=== PATIENT | female | born 1955 | race African-American/Black ===

== ENCOUNTER 2018-03-16 17:30 | Inpatient (IN) | payer MEDICARE, OTHER ==
[~2018-03-16] VITALS: Ht 154.9 cm; Wt 113.4 kg
[2018-03-16] MEDS ORDERED: PANTOPRAZOLE 40 MG 10ML VIAL IV STA (18:25)
[2018-03-16] MEDS ORDERED: ONDANSETRON HCL INJ 2 MG/ML VIAL IV STA (18:25)
[2018-03-16] MEDS ORDERED: SODIUM CHLORIDE 0.9% 250ML 250 ML IV ONE (18:30)
[2018-03-16] MEDS ORDERED: VANCOMYCIN 1GM/NS 250 ML 250 ML IV STA (18:37)
[2018-03-16] MEDS ORDERED: PIPERACILLIN/TAZO 2.25 GM 50 ML IV STA (18:37)
[2018-03-16] MEDS ORDERED: DIATRIZOATE MEGL/DIATRIZOA SOD 30 ML BTL PO ONE (18:40)
[2018-03-16 18:41] LABS: BASOPHILS % 0.2 % (0.0-1.0); EOSINOPHILS # (AUTO) 0.2 (0.0-0.4); EOSINOPHILS % 2.3 % (0.0-6.0); HEMATOCRIT 33.2 % (34.2-44.1); HEMOGLOBIN 9.9 g/dL (12.0-16.0); LYMPHOCYTES # (AUTO) 1.7 (1.0-3.2); LYMPHOCYTES % 17.2 % (18.0-39.1); MEAN CORPUSCULAR HEMOGLOBIN 29.5 pg (28-32); MEAN CORPUSCULAR HGB CONC 29.8 g/dL (31-35); MEAN CORPUSCULAR VOLUME 98.8 fL (81-99); MONOCYTES # (AUTO) 0.8 (0.2-0.8); MONOCYTES % 7.6 % (4.4-11.3); NEUTROPHILS # (AUTO) 7.2 (2.1-6.9); NEUTROPHILS % 72.4 % (38.7-80.0); PLATELET COUNT 147 x10e3/uL (140-360); RED BLOOD COUNT 3.36 x10e6/uL (3.6-5.1); RED CELL DISTRIBUTION WIDTH 15.8 % (11.7-14.4)
[2018-03-16 19:00] LABS: INR 1.12; PROTHROMBIN TIME 15.4 seconds (11.9-14.5)
[2018-03-16 19:01] LABS: ALBUMIN 2.9 g/dL (3.5-5.0); ALBUMIN/GLOBULIN RATIO 0.7 (0.8-2.0); ANION GAP 19.2 mmol/L (8-16); CALCIUM 10.1 mg/dL (8.4-10.2); CREATININE, SERUM 6.97 mg/dL (0.57-1.11); POTASSIUM 4.2 mmol/L (3.5-5.1)
[2018-03-16 19:01] LABS: PARTIAL THROMBOPLASTIN TIME 29.3 seconds (23.8-35.5)
[2018-03-16 19:07] LABS: CREATINE KINASE MB 1.4 ng/mL (0-5.0)
--- NOTE | 2018-03-16 20:51 | Diagnostic Imaging Report ---
EXAM: CHEST SINGLE (PORTABLE), AP 1 view INDICATION: Stage III ulcer right foot COMPARISON: None FINDINGS: LINES/TUBES: Right internal jugular vein tunneled hemodialysis catheter tip terminates at the expected location of the right atrium. Left internal jugular vein central line terminates in expected location of the atriocaval junction. LUNGS: No consolidations or edema. PLEURA: No effusions or pneumothorax. Elevation of the right hemidiaphragm. HEART AND MEDIASTINUM: Normal size and contour. BONES AND SOFT TISSUES: No acute findings. IMPRESSION: No acute thoracic abnormality. Signed by: Dr. Diana Qureshi M.D. on 03/16/2018 8:48 PM
--- NOTE | 2018-03-16 21:18 | Diagnostic Imaging Report ---
EXAM: CT ABDOMEN AND PELVIS without IV CONTRAST INDICATION: Abdominal pain, nausea and vomiting, stage III ulcer on right foot COMPARISON: None TECHNIQUE: The abdomen and pelvis were scanned using a multidetector helical scanner. Coronal and sagittal reformations were obtained. Dose modulation, iterative reconstruction, and/or weight based adjustment of the mA/kV was utilized to reduce the radiation dose to as low as reasonably achievable. Routine protocol performed. IV Contrast: None Oral Contrast: Gastrografin CTDIvol has been reviewed. It is below the limits set by the Radiation Protocol Committee (RPC). FINDINGS: LOWER THORAX: No consolidations. Elevated right hemidiaphragm. LIVER: No masses BILIARY: Cholecystectomy. No ductal dilation. SPLEEN: No masses PANCREAS: No masses ADRENALS: No nodules KIDNEYS: Small kidneys bilaterally consistent with chronic medical renal disease. GI TRACT: No wall thickening or obstruction. Normal appendix. VESSELS: Right femoral hemodialysis catheter terminates at the atriocaval junction. No abdominal aortic aneurysm. PERITONEUM/RETROPERITONEUM: No free air or fluid LYMPH NODES: No lymphadenopathy REPRODUCTIVE ORGANS: Small calcified uterine fibroid. No adnexal masses. BLADDER: Decompressed SOFT TISSUES: No acute findings BONES: No suspicious bone lesions. IMPRESSION: No acute findings to explain patient's abdominal pain Signed by: Dr. Diana Qureshi M.D. on 03/16/2018 9:14 PM
[2018-03-16] MEDS ORDERED: basaglar SC (21:22)
[2018-03-16] MEDS ORDERED: CLONIDINE HCL0.2 MG PO (21:22)
[2018-03-16] MEDS ORDERED: DOCUSATE SODIU100 MG PO (21:22)
[2018-03-16] MEDS ORDERED: CONSTULOSE10 GM/15 M PO (21:22)
[2018-03-16] MEDS ORDERED: SENSIPAR30 MG PO (21:23)
[2018-03-16] MEDS ORDERED: LASIX40 MG PO (21:23)
[2018-03-16] MEDS ORDERED: GABAPENTIN100 MG PO (21:23)
[2018-03-16] MEDS ORDERED: PLAVIX75 MG PO (21:23)
[2018-03-16] MEDS ORDERED: RENVELA800 MG PO (21:23)
[2018-03-16] MEDS ORDERED: MIRALAX17 GM PO (21:23)
[2018-03-16] MEDS ORDERED: TYLENOL WITH C1 EACH PO (21:23)
[2018-03-16] MEDS ORDERED: METOPROLOL TART25 MG PO (21:23)
[2018-03-16] MEDS ORDERED: LACTINEX CHEWA1 EACH PO (21:23)
[2018-03-16] MEDS ORDERED: TRADJENTA5 MG PO (21:23)
[2018-03-16] MEDS ORDERED: HUMULIN-R100 UNITS/ (21:23)
[2018-03-16] MEDS ORDERED: PANTOPRAZOLE SO40 MG PO (21:23)
[2018-03-16] MEDS ORDERED: NORVASC5 MG PO (21:23)
--- NOTE | 2018-03-16 21:27 | Diagnostic Imaging Report ---
EXAM: FOOT RIGHT COMPLETE, AP, lateral and oblique INDICATION: Stage III ulcer right foot COMPARISON: None FINDINGS: BONES: No acute fractures. No focal erosions. Diffuse bone demineralization. JOINTS: No malalignment. SOFT TISSUES: Severe soft tissue swelling of the foot, predominantly dorsal. Marked vascular calcifications. IMPRESSION: No radiographic evidence of osteomyelitis. Signed by: Dr. Diana Qureshi M.D. on 03/16/2018 9:24 PM
--- OUTSIDE RECORDS SUMMARY | 2018-03-16 21:31 | XMS REPORT | Clinical Summary ---
Author Author [facility] Address Unknown Phone Unavailable Care Team Providers Care Serology Technician Name Role Phone Sofia Atwood MD PCP Allergies Active Allergy Reactions Severity Noted Date Comments Lisinopril 11/09/2016 Tramadol 11/09/2016 Current Medications Prescription Sig. Disp. Refills Start End Date Status Date acetaminophen-codeine Take 1 tablet by mouth Active (TYLENOL WITH CODEINE #3) every 6 (six) hours as 300-30 mg per tablet needed for moderate pain. diclofenac (VOLTAREN) 1 % Apply 4 g topically 4 Active gel (four) times a day. As needed for pain on back and shoulder. simvastatin (ZOCOR) 20 MG Take 20 mg by mouth Active tablet nightly. senna (SENOKOT) 8.6 mg Take 1 tablet by mouth Active tablet daily. zinc oxide 16 % ointment Apply topically 2 (two) Active times a day as needed. Perineal area. polyethylene glycol Take 17 g by mouth daily. Active (MIRALAX) 17 gram packet For constipation. ondansetron (ZOFRAN) 4 MG Take 4 mg by mouth every Active tablet 6 (six) hours. Nausea and vomiting. clonIDINE HCl (CATAPRES) Take 0.2 mg by mouth Active 0.2 MG tablet daily. Hold if SBP<110mmHg and HR<60bpm. (On dialysis days) amLODIPine (NORVASC) 5 mg Take 5 mg by mouth daily. Active tablet Hold if SBP<110mmHg and HR<60bpm. clonIDINE HCl (CATAPRES) Take 0.2 mg by mouth 2 Active 0.2 MG tablet (two) times a day. Hold if SBP<110mmHg and HR<60bpm. (Non-Dialysis days) melatonin 3 mg tablet Take 5 mg by mouth Active nightly. For insomnia. cinacalcet (SENSIPAR) 30 Take 30 mg by mouth Active MG tablet daily. With dinner. sitaGLIPtin (JANUVIA) 25 Take 25 mg by mouth Active MG tablet daily. insulin NPH and regular Inject under the skin 2 Active human (HumuLIN 70/30) 100 (two) times a day before unit/mL (70-30) injection meals. insulin GLARGINE (LANTUS) Inject 20 Units under the Active 100 unit/mL injection skin daily. Every AM for (vial) dialysis. sevelamer (RENVELA) 800 Take 800 mg by mouth 2 Active mg tablet (two) times a day with meals. Three tablets 2 times daily with meals on Sunday,sunday and Sunday. sevelamer (RENVELA) 800 Take 800 mg by mouth 3 Active mg tablet (three) times a day with meals. Three tablets by mouth three times a day on Sunday,,sunday and Sunday. famotidine (PEPCID) 20 MG Take 20 mg by mouth Active tablet nightly. gabapentin (NEURONTIN) Take 100 mg by mouth 2 Active 100 mg capsule (two) times a day. ascorbic acid, vitamin C, Take 500 mg by mouth Active (VITAMIN C) 500 MG tablet daily. docusate sodium (COLACE) Take 100 mg by mouth 2 Active 100 MG capsule (two) times a day. Active Problems Problem Noted Date Cellulitis of right lower leg 11/10/2016 Social History Tobacco Use Types Packs/Day Years Used Date Unknown If Ever Smoked Sex Assigned at Date Recorded Not on file Last Filed Vital Signs Not on file Plan of Treatment Health Maintenance Due Date Last Done Comments CERVICAL CANCER SCREENING 1977 BREAST CANCER SCREENING 2006 COLON CANCER SCREENING 2006 SHINGRIX VACCINE (#1) 2006 ZOSTER VACCINE 2016 INFLUENZA VACCINE 12/12/2017 Results Not on fileafter 03/15/2017 Insurance Payer Benefit Subscriber ID Type Phone Address Plan / Group MEDICARE MEDICARE xxxxxxxxxx Medicare [place] PART [place] B MEDICAID MEDICA[place] x[place] [address]
--- OUTSIDE RECORDS SUMMARY | 2018-03-16 21:34 | XMS REPORT | Continuity of Care Document ---
Author Author [facility] Organization [facility] Address Unknown Phone Unavailable Care Team Providers Care Oil And Gas Field Technician Name Role Phone MD Gonzalez Eleanor PP Unavailable Insurance Providers Payer name Policy type / Coverage type Policy ID Covered republican ID Policy [place] [employer] MED[place]: [employer] [place] ACS - TM[facility] - [place]ADITION[place] ACS - TM[place] - [place] ACS - TMHP - [place]: ACS - TMHP - [place]AD[place] ACS - TMHP - TRADITIONAL [place]: ACS - TMHP - TRADITION[place] ACS - TMHP - TRADITION[place]: ACS - TMHP - TRADITION[place] MED[place]: ACS - TMHP - TRADITIONAL MED[place]: ACS - TMHP - TRADITIONAL MED[place]: ACS - TMHP - TRADITION[place]: ACS - TMHP - TRADITION[place]: ACS - TMHP - TRADITION[place]: ACS - TMHP - TRADITIONAL MED[place]ID[place]: ACS - TMHP - TRADITIONAL MEDICAID-[place]: ACS - TMHP - TRADITIONAL MEDICAID-[place]: ACS - TMHP - TRADITIONAL MEDICAID-[place]: ACS - TMHP - TRADITIONAL MEDICAID-[place]: ACS - TMHP - TRADITIONAL MEDICAID-[place]: ACS - TMHP - TRADITIONAL MEDICAID-[place]: ACS - TMHP - TRADITIONAL MEDICAID-[place]: ACS - TMHP - TRADITIONAL MEDICAID-[place]: ACS - TMHP - TRADITIONAL MEDICAID-[place]: ACS - TMHP - TRADITIONAL MEDICAID-[place]: ACS - TMHP - TRADITIONAL MEDICAID-[place]: ACS - TMHP - TRADITIONAL MEDICAID-[place]: ACS - TMHP - TRADITIONAL MEDICAID-[place]: ACS - TMHP - TRADITIONAL MEDICAID-[place]: ACS - TMHP - TRADITIONAL MEDICAID-[place]: ACS - TMHP - TRADITIONAL MEDICAID-[place]: ACS - TMHP - TRADITIONAL MEDICAID-[place]: ACS - TMHP - TRADITIONAL MEDICAID-[place]: ACS - TMHP - TRADITIONAL MEDICAID-[place]: ACS - TMHP - TRADITIONAL MEDICAID-[place]: ACS - TMHP - TRADITIONAL MEDICAID-[place]: ACS - TMHP - TRADITIONAL MEDICAID-[place]: ACS - TMHP - TRADITIONAL MEDICAID-[place]: ACS - TMHP - TRADITIONAL MEDICAID-[place]: ACS - TMHP - TRADITIONAL MEDICAID-[place]: ACS - TMHP - TRADITIONAL MEDICAID-[place]: ACS - TMHP - TRADITIONAL MEDICAID-[place]: ACS - TMHP - TRADITIONAL MEDICAID-[place]: ACS - TMHP - TRADITIONAL MEDICAID-[place]: ACS - TMHP - TRADITIONAL MEDICAID-[place]: ACS - TMHP - TRADITIONAL MEDICAID-[place]: ACS - TMHP - TRADITIONAL MEDICAID-[place]: ACS - TMHP - TRADITIONAL MEDICAID-[place]: ACS - TMHP - TRADITIONAL MEDICAID-[place]: ACS - TMHP - TRADITIONAL MEDICAID-[place]: ACS - TMHP - TRADITIONAL MEDICAID-[place]: ACS - TMHP - TRADITIONAL MEDICAID-[place]: ACS - TMHP - TRADITIONAL MEDICAID-[place]: ACS - TMHP - TRADITIONAL MEDICAID-[place]: ACS - TMHP - TRADITIONAL MEDICAID-[place]: ACS - TMHP - TRADITIONAL MED[place]ID[place]: ACS - TMHP - TRADITIONAL MED[place]ID[place]: ACS - TMHP - TRADITIONAL MED[place]ID[place]: ACS - TMHP - TRADITIONAL MED[place]ID[place]: ACS - TMHP - TRADITIONAL MED[place]ID[place]: ACS - TMHP - TRADITIONAL MED[place]ID[place]: ACS - TMHP - TRADITIONAL MED[place]ID[place]: ACS - TMHP - TRADITIONAL MED[place]ID[place]: ACS - TMHP - TRADITIONAL MED[place]: ACS - TMHP - TRADITION[place] MED[place]: ACS - TMHP - TRADITION[place] MED[place]: ACS - TMHP - TRADITION[place]: ACS - TMHP - [place]AD[place]: ACS - TMHP - TRADITION[place]: ACS - TMHP - TRADITIONAL Encounters Encounter Performer Location Date Lab Report Ary Gonzalez MD [facility] Oct 23, 2013 Allergies, Adverse Reactions, Alerts Type Substance Reaction Status Drug allergy LISINOPRIL Active Drug allergy LISINOPROL Inactive Problems Problem Effective Dates Problem Status HYPERTENSION - BENIGN ESSENTIAL Active FH BREAST CANCER Active DIABETES MELLITUS, TYPE II, UNCONTROLLED Jul 18, 2013 Active PERIPHERAL EDEMA Jul 18, 2013 Active ESRD Jul 18, 2013 Active CONSTIPATION Jul 18, 2013 Active GAIT IMBALANCE Jul 18, 2013 Active CHRONIC DIASTOLIC HF Active ELECTROCARDIOGRAM - ABNORMAL Active OBESITY - MORBID Active PREOPERATIVE EXAMINATION Aug 07, 2013 Active PRE-OPERATIVE RESPIRATORY EXAMINATION Aug 07, 2013 Active RETINOPATHY Aug 07, 2013 Active BACK PAIN Aug 14, 2013 Active HYPERLIPIDEMIA Oct 23, 2013 Active VENOUS INSUFFICIENCY, CHRONIC Oct 23, 2013 Active Procedures Date Description Comments Jun 30, 2013 mammogram Completed at [facility] Jul 18, 2013 smoking status never smoker Jul 18, 2013 diabetic foot check yes Jul 18, 2013 smoking status never smoker Medications Medication Instructions Start Date Status NORVASC 10 MG TABS Take one tab by mouth daily for BP Jul 18, 2013 Active CATAPRES 0.2 MG TABS Take 1 pill by mouth every 8 hours Jul 18, 2013 Active RENVELA 800 MG TABS take 2 tabs w/ every meal including snacks Jul 18, 2013 Active GABAPENTIN 100 MG CAPS Take 1 tab by mouth TID Jul 18, 2013 Active NITROSTAT 0.4 MG SUBL PRN Jul 18, 2013 Active FERROUS SULFATE 325 (65 FE) MG TBEC Take 1 pill by mouth once a day Jul 18, 2013 Active EPOGEN SOLN Jul 18, 2013 Active RENAL MULTIVITAMIN/ZINC TABS Take 1 pill by mouth once a day Jul 18, 2013 Active D 2000 TABS Take 1 pill by mouth once a day Jul 18, 2013 Active DIURETICS Jul 18, 2013 Active ZOSTAVAX 32513 UNT/0.65ML SOLR Administer 0.65 mL intramuscular x1 Jul 18, 2013 Inactive ASPIRIN EC LOW DOSE 81 MG TBEC 1 tablet daily Jul 18, 2013 Active ASPIRIN 81 MG TABS Take 1 tab by mouth once daily Jul 18, 2013 Inactive CRESTOR 5 MG TABS Take 1 pill by mouth at bedtime Jul 25, 2013 Active GENERLAC 10 GM/15ML SOLN take 30 ml po qd prn constipation Aug 21, 2013 Active LANTUS SOLOSTAR 100 UNIT/ML SOLN take 15 u SC bid September 15, 2013 Inactive LANTUS SOLOSTAR NEEDLES dx: 250.02 September 15, 2013 Inactive LANTUS 100 UNIT/ML SOLN take 15 u SC bid September 15, 2013 Active Vital Signs Date Description Test Result Jul 18, 2013 weight E&M WEIGHT 257 lb Jul 18, 2013 temperature E&M TEMPERATURE 98.3 deg f Jul 18, 2013 respiratory rate E&M RESP RATE 17 /min Jul 18, 2013 pulse rate E&M PULSE RATE 94 /min Jul 18, 2013 blood pressure, systolic BP SYSTOLIC 132 mm Hg Jul 18, 2013 blood pressure, diastolic BP DIASTOLIC 85 mm Hg Jul 18, 2013 height E&M HEIGHT 63 in Jul 18, 2013 weight E&M WEIGHT 262 lb Jul 18, 2013 height E&M HEIGHT 63 in Jul 18, 2013 blood pressure, systolic, sitting, right arm BP SYS SIT R 126 null Jul 18, 2013 blood pressure, diastolic, sitting, right arm BP MARIAJOSE SIT R 83 mmHg Jul 18, 2013 pulse rate, sitting, right PULSE SIT R 95 /min Jul 18, 2013 temperature E&M TEMPERATURE 97.7 deg f Jul 18, 2013 blood pressure, systolic BP SYSTOLIC 126 mm Hg Jul 18, 2013 pulse rate E&M PULSE RATE 95 /min Jul 18, 2013 blood pressure, diastolic BP DIASTOLIC 83 mm Hg Aug 07, 2013 weight E&M WEIGHT 256 lb Aug 07, 2013 blood pressure, systolic BP SYSTOLIC 151 mm Hg Aug 07, 2013 blood pressure, diastolic BP DIASTOLIC 84 mm Hg Aug 07, 2013 temperature E&M TEMPERATURE 97.5 deg f Aug 07, 2013 pulse rate E&M PULSE RATE 83 /min Aug 07, 2013 respiratory rate E&M RESP RATE 18 /min Aug 07, 2013 blood pressure, systolic, second observation BP SYS #2 134 mm Hg Aug 07, 2013 blood pressure, diastolic, second observation BP MARIAJOSE #2 84 mm Hg Aug 14, 2013 weight E&M WEIGHT 260 lb Aug 14, 2013 blood pressure, systolic BP SYSTOLIC 128 mm Hg Aug 14, 2013 blood pressure, diastolic BP DIASTOLIC 85 mm Hg Aug 14, 2013 temperature E&M TEMPERATURE 98.2 deg f Aug 14, 2013 pulse rate E&M PULSE RATE 87 /min Aug 14, 2013 respiratory rate E&M RESP RATE 17 /min Oct 23, 2013 weight E&M WEIGHT 259 lb Oct 23, 2013 blood pressure, systolic BP SYSTOLIC 105 mm Hg Oct 23, 2013 blood pressure, diastolic BP DIASTOLIC 69 mm Hg Oct 23, 2013 temperature E&M TEMPERATURE 98.2 deg f Oct 23, 2013 pulse rate E&M PULSE RATE 79 /min Oct 23, 2013 respiratory rate E&M RESP RATE 18 /min Results Date Description Test Name Value Reference Interpretation Status Jul 18, 2013 hemoglobin, blood HGB 12.5 g/dL 12.0-16.0 Jul 18, 2013 hematocrit, blood HCT 37.8 % 36.0-48.0 Jul 18, 2013 platelet count PLATELETS 211 K/CMM /mm3 133-450 Jul 18, 2013 hemoglobin A1C, blood, as % of total hemoglobin HGBA1C 7.9 % <=5.6 High Jul 18, 2013 cholesterol, serum CHOLESTEROL 237 mg/dl <=199 High Jul 18, 2013 triglyceride, serum, fasting TRIGLYCERIDE 218 mg/dl <=149 High Jul 18, 2013 HDL cholesterol, serum HDL 51 mg/dl >=61 Low Jul 18, 2013 LDL cholesterol, serum LDL 142 mg/dl <=99 High Jul 18, 2013 sodium, serum SODIUM 140 MEQ/L mmol/L 135-145 Jul 18, 2013 potassium, serum POTASSIUM 4.6 MEQ/L mmol/L 3.5-5.1 Jul 18, 2013 creatinine, serum CREATININE 5.0 mg/dL 0.5-1.4 Jul 18, 2013 urea nitrogen, blood BUN 32 mg/dL 7-Jul 18, 2013 urea nitrogen/creatinine ratio, serum BUN/CREAT 6 null 6-25 Jul 18, 2013 albumin, serum ALBUMIN <0.1 g/dL g/dL 3.5-5.0 Jul 18, 2013 calcium, serum CALCIUM 10.0 mg/dL 8.5-10.5 Jul 18, 2013 alanine aminotransferase (SGPT), serum SGPT (ALT) 48 U/L 0-65 Jul 18, 2013 aspartate aminotransferase (SGOT), serum SGOT (AST) 31 U/L 0-37 Jul 18, 2013 alkaline phosphatase, serum ALK PHOS 216 U/L 39-136 High Jul 18, 2013 thyroid stimulating hormone, serum TSH 0.867 uIU/mL 0.360-3.740 Oct 23, 2013 hemoglobin A1C, blood, as % of total hemoglobin HGBA1C 7.7 % <=5.6 High Oct 23, 2013 cholesterol, serum CHOLESTEROL 156 mg/dl <=199 Oct 23, 2013 triglyceride, serum, fasting TRIGLYCERIDE 180 mg/dl <=149 High Oct 23, 2013 HDL cholesterol, serum HDL 42 mg/dl >=61 Low Oct 23, 2013 LDL cholesterol, serum LDL 78 mg/dl <=99 Oct 23, 2013 sodium, serum SODIUM 135 MEQ/L mmol/L 135-145 Oct 23, 2013 potassium, serum POTASSIUM 4.2 MEQ/L mmol/L 3.5-5.1 Oct 23, 2013 creatinine, serum CREATININE 6.7 mg/dL 0.5-1.4 High Oct 23, 2013 urea nitrogen, blood BUN 34 mg/dL 7- High Oct 23, 2013 urea nitrogen/creatinine ratio, serum BUN/CREAT 5 null 6-25 Low Oct 23, 2013 albumin, serum ALBUMIN 3.8 g/dL 3.5-5.0 Oct 23, 2013 calcium, serum CALCIUM 9.2 mg/dL 8.5-10.5 Oct 23, 2013 alanine aminotransferase (SGPT), serum SGPT (ALT) 26 U/L 0-65 Oct 23, 2013 aspartate aminotransferase (SGOT), serum SGOT (AST) 17 U/L 0-37 Oct 23, 2013 alkaline phosphatase, serum ALK PHOS 150 U/L 39-136 High Aug 07, 2013 prothrombin time (patient) PT PATIENT 14.0 s 12.0-14.7 Aug 07, 2013 international normalized ratio (INR) INR 1.09 null 0.85-1.17
--- OUTSIDE RECORDS SUMMARY | 2018-03-16 21:34 | XMS REPORT | Continuity of Care Document ---
Author Author [facility] Organization [facility] Address Unknown Phone Unavailable Care Team Providers Care Mountain Services Manager Name Role Phone MD Gonzalez Eleanor PP Unavailable Insurance Providers Payer name Policy type / Coverage type Policy ID Covered libertarian ID Policy [employer] [employer]ITAS SOLUTIONS [...] - TRADITIONAL Encounters Encounter Performer Location Date Office Visit Ary Gonzalez MD [facility] Aug 14, 2013 Allergies, Adverse Reactions, Alerts Type Substance [...] Active BACK PAIN Aug 14, 2013 Active Procedures Date Description Comments Jun 30, 2013 mammogram Completed at [facility] Jul 18, 2013 smoking status never smoker [...] meal including snacks Jul 18, 2013 Active LANTUS SOLOSTAR 100 UNIT/ML SOLN 15u BID Jul 18, 2013 Active GABAPENTIN 100 MG CAPS Take 1 tab by mouth TID Jul 18, 2013 Active ENULOSE 10 GM/15ML SOLN PRN Jul 18, 2013 Active NITROSTAT 0.4 MG [...] Active DIURETICS Jul 18, 2013 Active ZOSTAVAX 27811 UNT/0.65ML SOLR Administer 0.65 mL intramuscular x1 Jul 18, 2013 Inactive ASPIRIN EC LOW DOSE 81 MG TBEC 1 tablet daily Jul 18, 2013 Active ASPIRIN 81 MG TABS Take 1 tab by mouth once daily Jul 18, 2013 Inactive CRESTOR 5 MG TABS Take 1 pill by mouth at bedtime Jul 25, 2013 Active Vital Signs Date Description Test Result Jul 18, 2013 weight E&M - 3141-9 WEIGHT 257 lb Jul 18, 2013 temperature E&M TEMPERATURE 98.3 deg f Jul 18, 2013 respiratory rate E&M - 9279-1 RESP RATE 17 /min Jul 18, 2013 pulse rate E&M - 8867-4 PULSE RATE 94 /min Jul 18, 2013 blood pressure, systolic - 8480-6 BP SYSTOLIC 132 mm Hg Jul 18, 2013 blood pressure, diastolic - 8462-4 BP DIASTOLIC 85 mm Hg Jul 18, 2013 height E&M - 8302-2 HEIGHT 63 in Jul 18, 2013 weight E&M - 3141-9 WEIGHT 262 lb Jul 18, 2013 height E&M - 8302-2 HEIGHT 63 in Jul 18, 2013 blood pressure, systolic, sitting, right arm BP SYS SIT R 126 null Jul 18, 2013 blood pressure, diastolic, sitting, right arm BP MARIAJOSE SIT R 83 mmHg Jul 18, 2013 pulse rate, sitting, right PULSE SIT R 95 /min Jul 18, 2013 temperature E&M TEMPERATURE 97.7 deg f Jul 18, 2013 blood pressure, systolic - 8480-6 BP SYSTOLIC 126 mm Hg Jul 18, 2013 pulse rate E&M - 8867-4 PULSE RATE 95 /min Jul 18, 2013 blood pressure, diastolic - 8462-4 BP DIASTOLIC 83 mm Hg Aug 07, 2013 weight E&M - 3141-9 WEIGHT 256 lb Aug 07, 2013 blood pressure, systolic - 8480-6 BP SYSTOLIC 151 mm Hg Aug 07, 2013 blood pressure, diastolic - 8462-4 BP DIASTOLIC 84 mm Hg Aug 07, 2013 temperature E&M TEMPERATURE 97.5 deg f Aug 07, 2013 pulse rate E&M - 8867-4 PULSE RATE 83 /min Aug 07, 2013 respiratory rate E&M - 9279-1 RESP RATE 18 /min Aug 07, 2013 blood pressure, systolic, second observation BP SYS #2 134 mm Hg Aug 07, 2013 blood pressure, diastolic, second observation BP MARIAJOSE #2 84 mm Hg Aug 14, 2013 weight E&M - 3141-9 WEIGHT 260 lb Aug 14, 2013 blood pressure, systolic - 8480-6 BP SYSTOLIC 128 mm Hg Aug 14, 2013 blood pressure, diastolic - 8462-4 BP DIASTOLIC 85 mm Hg Aug 14, 2013 temperature E&M TEMPERATURE 98.2 deg f Aug 14, 2013 pulse rate E&M - 8867-4 PULSE RATE 87 /min Aug 14, 2013 respiratory rate E&M - 9279-1 RESP RATE 17 /min Results Date Description Test Name Value [...] 2013 creatinine, serum CREATININE 5.0 mg/dL 0.5-1.4 High Jul 18, 2013 urea nitrogen, blood BUN 32 mg/dL 7-22 High Jul 18, 2013 urea nitrogen/creatinine ratio, serum BUN/CREAT [...] stimulating hormone, serum TSH 0.867 uIU/mL 0.360-3.740 Aug 07, 2013 prothrombin time (patient) PT PATIENT 14.0 s 12.0-14.7 Aug 07, 2013 international normalized ratio (INR) INR 1.09 null 0.85-1.17
--- OUTSIDE RECORDS SUMMARY | 2018-03-16 21:34 | XMS REPORT | Continuity of Care Document ---
Author Author [facility] Organization [facility] Address Unknown Phone Unavailable Care Team Providers Care Licensed Nuclear Operator Name Role Phone MD Gonzalez Eleanor PP [...] Location Date Office Visit Ary Gonzalez MD [facility] Aug 07, 2013 Allergies, Adverse Reactions, Alerts Type Substance [...] 2013 Active RETINOPATHY Aug 07, 2013 Active Procedures Date Description Comments Jun 30, 2013 mammogram Completed at [facility] Jul 18, 2013 smoking status never smoker [...] Active DIURETICS Jul 18, 2013 Active ZOSTAVAX 20347 UNT/0.65ML SOLR Administer 0.65 mL intramuscular x1 [...] observation BP MARIAJOSE #2 84 mm Hg Results Date Description Test Name Value Reference [...]
--- OUTSIDE RECORDS SUMMARY | 2018-03-16 21:34 | XMS REPORT | Continuity of Care Document ---
Author Author [facility] Organization [facility] Address Unknown Phone Unavailable Care Team Providers Care Gourmet Coffee Attendant Name Role Phone MD Gonzalez Eleanor PP [...] Location Date Lab Report Ary Gonzalez MD [facility] Jul 18, 2013 Problems Problem Effective Dates Problem Status HYPERTENSION - BENIGN ESSENTIAL Active FH BREAST CANCER Active DIABETES MELLITUS, TYPE II, UNCONTROLLED Jul 18, 2013 Active PERIPHERAL EDEMA Jul 18, 2013 Active ESRD Jul 18, 2013 Active CONSTIPATION Jul 18, 2013 Active GAIT IMBALANCE Jul 18, 2013 Active CHRONIC DIASTOLIC HF Active ELECTROCARDIOGRAM - ABNORMAL Active OBESITY - MORBID Active Procedures Date Description Comments Jun 30, 2013 mammogram Completed at [facility] Jul 18, 2013 smoking status never smoker [...] Active DIURETICS Jul 18, 2013 Active ZOSTAVAX 82561 UNT/0.65ML SOLR Administer 0.65 mL intramuscular x1 Jul 18, 2013 Inactive ASPIRIN EC LOW DOSE 81 MG TBEC 1 tablet daily Jul 18, 2013 Active CRESTOR 5 MG TABS Take 1 pill [...] - 8462-4 BP DIASTOLIC 83 mm Hg Results Date Description Test Name [...]
--- OUTSIDE RECORDS SUMMARY | 2018-03-16 21:34 | XMS REPORT | Continuity of Care Document ---
Author Author [facility] Organization [facility] Address Unknown Phone Unavailable Care Team Providers Care Bsa/Aml Compliance Officer Name Role Phone MD Thurman J R PP Unavailable Insurance Providers Payer name Policy type / Coverage type Policy ID Covered green party ID Policy [employer] [employer]AS SOLUTIONS [...] Encounters Encounter Performer Location Date Office Visit Lia Thurman MD [facility] Jul 18, 2013 Allergies, Adverse Reactions, Alerts Type Substance Reaction Status Drug allergy LISINOPROL Active Problems Problem Effective Dates Problem Status HYPERTENSION [...] Comments Jun 30, 2013 mammogram Completed at [place] Jul 18, 2013 smoking status never smoker [...] MG SUBL PRN Jul 18, 2013 Active ASPIRIN 81 MG TABS Take 1 tab by mouth once daily Jul 18, 2013 Active FERROUS SULFATE 325 [...] Active DIURETICS Jul 18, 2013 Active ZOSTAVAX 01123 UNT/0.65ML SOLR Administer 0.65 mL intramuscular x1 Jul 18, 2013 Active ASPIRIN EC LOW DOSE 81 MG TBEC 1 tablet daily Jul 18, 2013 Active Vital Signs Date Description Test [...]
--- OUTSIDE RECORDS SUMMARY | 2018-03-16 21:34 | XMS REPORT | Continuity of Care Document ---
Author Author [facility] Organization [facility] Address Unknown Phone Unavailable Care Team Providers Care Construction Area Manager Name Role Phone MD Gonzalez Eleanor [...] Location Date Lab Report Ary Gonzalez MD [facility] Aug 07, 2013 Allergies, Adverse Reactions, Alerts [...] Comments Jun 30, 2013 mammogram Completed at [facility] Jul 18, 2013 smoking status never [...] Active DIURETICS Jul 18, 2013 Active ZOSTAVAX 62798 UNT/0.65ML SOLR Administer 0.65 mL intramuscular x1 [...]
--- OUTSIDE RECORDS SUMMARY | 2018-03-16 21:35 | XMS REPORT | Summary of Care ---
Author Organization Unknown Address Unknown Phone Unavailable Encounter [facility]) [id number] Date(s): 12/04/13 - 12/04/[address] Discharge Disposition: Home Physician Attending: Markie Barber MD Physician_Referring: Ary Gonzalez MD Reason for Visit DIABETES Problem List Condition Effective Dates Status Health Status Informant Cellulitis(Confirmed Active ) Dialysis Active care(Confirmed) Dialysis Active catheter(Confirmed) DM - Diabetes Active mellitus(Confirmed) ESRD - End stage Active renal disease(Confirmed) HTN - Active Hypertension(Confirm ed) Hyperglycemia(Confir Active med) Morbid Active obesity(Confirmed) Allergies, Adverse Reactions, Alerts Substance Reaction Severity Status lisinopril Active Medications No data available for this section Medications Administered During Your Visit No data available for this section Immunizations Vaccine Date Refusal Reason pneumococcal 23-valent vaccine 11/14/12 tetanus-diphtheria toxoids 01/23/13 Social History Social History Type Response
--- OUTSIDE RECORDS SUMMARY | 2018-03-16 21:35 | XMS REPORT | Continuity of Care Document ---
Author Author [facility] Organization [facility] Address Unknown Phone Unavailable Care Team Providers Care Roaster Helper Name Role Phone MD Gonzalez Eleanor PP Unavailable Insurance Providers Payer name Policy type / Coverage type Policy ID Covered constitution party ID Policy [place] MEDIC[id number]: [id number] [...] Location Date Lab Report Ary Gonzalez MD [facility] [place] Dec 05, 2013 Allergies, Adverse Reactions, Alerts Type Substance [...] VENOUS INSUFFICIENCY, CHRONIC Oct 23, 2013 Active ALKALINE PHOSPHATASE, ELEVATED Oct 30, 2013 Active VISION DISORDER Nov 03, 2013 Active Procedures Date Description Comments Jun 30, 2013 mammogram Completed at [facility] Jul 18, 2013 smoking status never smoker Jul 18, 2013 diabetic foot check yes Jul 18, 2013 smoking status never smoker Nov 20, 2013 colonoscopy Complete Medications Medication Instructions Start Date Status NORVASC [...] Active DIURETICS Jul 18, 2013 Active ZOSTAVAX 67137 UNT/0.65ML SOLR Administer 0.65 mL intramuscular x1 [...] respiratory rate E&M RESP RATE 18 /min Nov 03, 2013 temperature E&M TEMPERATURE 97.9 deg f Nov 03, 2013 pulse rate E&M PULSE RATE 98 /min Nov 03, 2013 blood pressure, systolic BP SYSTOLIC 136 mm Hg Nov 03, 2013 blood pressure, diastolic BP DIASTOLIC 84 mm Hg Nov 03, 2013 weight E&M WEIGHT 258 lb Nov 03, 2013 respiratory rate E&M RESP RATE 16 /min Results Date Description Test Name Value Reference Interpretation Status Jul 18, 2013 hemoglobin, blood HGB 12.5 g/dL 12.0-16.0 Jul 18, 2013 hematocrit, blood HCT 37.8 % 36.0-48.0 Jul 18, 2013 platelet count PLATELETS 211 K/CMM /mm3 133-450 Nov 03, 2013 hemoglobin, blood HGB 13.3 g/dL 12.0-16.0 Nov 03, 2013 hematocrit, blood HCT 39.1 % 36.0-48.0 Nov 03, 2013 platelet count PLATELETS 174 K/CMM /mm3 133-450 Jul 18, 2013 hemoglobin [...] 2013 urea nitrogen, blood BUN 34 mg/dL 7-22 High Oct 23, 2013 urea nitrogen/creatinine ratio, [...] serum ALK PHOS 150 U/L 39-136 High Nov 03, 2013 alkaline phosphatase, serum ALK PHOS 161 U/L 39-136 High Nov 03, 2013 gamma glutamyl transferase, serum GGT 46 U/L 5-85 Aug 07, 2013 prothrombin time (patient) PT PATIENT 14.0 s 12.0-14.7 Aug 07, 2013 international normalized ratio (INR) INR 1.09 null 0.85-1.17 Nov 03, 2013 prothrombin time (patient) PT PATIENT 13.5 s 12.0-14.7 Nov 03, 2013 international normalized ratio (INR) INR 1.04 null 0.85-1.17
--- OUTSIDE RECORDS SUMMARY | 2018-03-16 21:35 | XMS REPORT | Summary of Care ---
Author Organization Unknown Address Unknown Phone Unavailable Encounter [facility]) [id number] Date(s): 12/23/13 - 12/23/[address] Discharge Disposition: Home Physician Attending: Markie Barber MD Physician Admitting: Markie Barber MD Physician_Referring: Ary Gonzalez MD [...]
--- OUTSIDE RECORDS SUMMARY | 2018-03-16 21:35 | XMS REPORT | Summary of Care ---
Author Organization Unknown Address Unknown Phone Unavailable Encounter [facility]) [id number] Date(s): 12/04/13 - 12/04/[address] Discharge Disposition: Home Physician Attending: Ary Gonzalez MD Physician_Referring: Ary Gonzalez MD Reason for [...]
--- OUTSIDE RECORDS SUMMARY | 2018-03-16 21:35 | XMS REPORT | Continuity of Care Document ---
Author Author [facility] Organization [facility] Address Unknown Phone Unavailable Care Team Providers Care Office Machine Technician Name Role Phone MD Gonzalez Eleanor [...] Location Date Office Visit Ary Gonzalez MD [facility] Oct 23, 2013 Allergies, Adverse Reactions, Alerts [...] Comments Jun 30, 2013 mammogram Completed at [facility] Jul 18, 2013 smoking status never [...] Active DIURETICS Jul 18, 2013 Active ZOSTAVAX 85393 UNT/0.65ML SOLR Administer 0.65 mL intramuscular x1 [...]
--- OUTSIDE RECORDS SUMMARY | 2018-03-16 21:35 | XMS REPORT | Summary of Care ---
Author Author [facility] Organization [facility] Address Unknown Phone Unavailable Encounter ELIA Villela(DULCE) [id number] Date(s): 12/02/14 - 12/05/14 [facility] [address] [place] [address]- Discharge Disposition: Home Attending Physician: Sharad Cabrales MD Admitting Physician: Ronal Posada MD Vital Signs 1 2 3 Most recent to oldest [Reference Range]: 160.02 cm (12/02/14 1:09 PM) Height 1 2 3 Most recent to oldest [Reference Range]: 98.2 DegF (12/05/14 12:04 PM) 98.1 DegF (12/05/14 8:13 AM) 98.4 DegF (12/05/14 12:00 AM) Temperature Oral [96.4-99.1 DegF] 1 2 3 Most recent to oldest [Reference Range]: 132/76 mmHg (12/05/14 12:04 PM) 146/85 mmHg *HI* (12/05/14 8:13 AM) 144/75 mmHg *HI* (12/05/14 12:00 AM) Blood Pressure [90-140/60-90 mmHg] 1 2 3 Most recent to oldest [Reference Range]: 15 BRMIN (12/05/14 5:31 AM) 18 BRMIN (12/05/14 12:00 AM) 18 BRMIN (12/04/14 8:00 PM) Respiratory Rate [14-20 BRMIN] 1 2 3 Most recent to oldest [Reference Range]: 76 bpm (12/05/14 12:04 PM) 75 bpm (12/05/14 8:13 AM) 83 bpm (12/05/14 12:00 AM) Peripheral Pulse Rate [60-100 bpm] 1 2 3 Most recent to oldest [Reference Range]: 134.003 kg (12/02/14 1:09 PM) Weight 1 2 3 Most recent to oldest [Reference Range]: 52.33 m2 (12/02/14 1:09 PM) Body Mass Index Problem List Condition Effective Dates Status Health Status Informant Abnormal gait1 07/18/13 Active Alkaline phosphatase 10/30/13 Active raised2 Benign hypertension3 Active Body mass index 40+ Active - severely obese4 Cellulitis(Confirmed Active ) Chronic diastolic Active heart failure5 Constipation6 07/18/13 Active Dialysis Active care(Confirmed) Dialysis Active catheter(Confirmed) Disorder of vision7 11/03/13 Active DM - Diabetes Active mellitus(Confirmed) Electrocardiogram Active abnormal8 End stage renal 07/18/13 Active disease9 ESRD - End stage Active renal disease(Confirmed) HTN - Active Hypertension(Confirm ed) Hyperglycemia(Confir Active med) [id number] 10/23/13 Active Morbid Active obesity(Confirmed) Peripheral edema11 07/18/13 Active Peripheral venous 10/23/13 Active [id number] Retinal niiskahn88 08/07/13 Active Type II diabetes 07/18/13 Active mellitus [id number] 1Data migrated from [employer] on 10/13/14. 2Data migrated from [employer] on 10/13/14. 3Data migrated from [employer] on 10/13/14. 4Data migrated from [employer] on 10/13/14. 5Data migrated from [employer] on 10/13/14. 6Data migrated from [employer] on 10/13/14. 7Data migrated from [employer] on 10/13/14. 8Data migrated from [employer] on 10/13/14. 9Data migrated from [employer] on 10/13/14. 10Data migrated from [employer] on 10/13/14. 11Data migrated from [employer] on 10/13/14. 12Data migrated from [employer] on 10/13/14. 13Data migrated from [employer] on 10/13/14. 14Data migrated from [employer] on 10/13/14. Allergies, Adverse Reactions, Alerts Substance Reaction Severity Status lisinopril1 Active traMADol Active 1Data migrated from [employer] on 09/11/14. Originally documented as LISINOPRIL. Medications amLODIPine 10 mg, 2 tab, Route: PO, Drug form: TAB, Daily, Dosing Weight 90.909, kg, Priori ty: NOW, Start date: 12/02/14 11:51:00, Duration: 30 day, Stop date: 01/01/15 9: 00:00 Notes: (Same as: Norvasc) Start Date: 12/02/14 Stop Date: 12/05/14 Status: Discontinued BD Normal Saline Flush 10 mL, Route: IV, Drug Form: INJ, PRN, PRN Line Flush, Start date: 12/02/14 13:1 4:00, Duration: 30 day, Stop date: 01/01/15 13:13:00 Notes: (Same as: BD Posiflush) Start Date: 12/02/14 Stop Date: 12/05/14 Status: Discontinued BD Normal Saline Flush 5 mL, Route: IV, Drug Form: INJ, PRN, PRN Line Flush, Start date: 12/02/14 13:13 :00, Duration: 30 day, Stop date: 01/01/15 13:12:00 Notes: (Same as: BD Posiflush) Start Date: 12/02/14 Stop Date: 12/05/14 Status: Discontinued Benadryl 25 mg, 1 cap, Route: PO, Drug form: CAP, Q8H, Dosing Weight 134.003, kg, PRN Itc olivia, Start date: 12/02/14 18:48:00, Duration: 30 day, Stop date: 01/01/15 18:47 :00 Notes: (Same as: Benadryl) Start Date: 12/02/14 Stop Date: 12/05/14 Status: Discontinued cloNIDine 0.1 mg oral tablet 0.2 mg, 2 tab, Route: PO, Drug form: TAB, BID, Dosing Weight 90.909, kg, Start d ate: 12/02/14 17:00:00, Duration: 30 day, Stop date: 01/01/15 9:00:00 Notes: (Same As: Catapres) Start Date: 12/02/14 Stop Date: 12/05/14 Status: Discontinued cloNIDine 0.2 mg oral tablet 0.2 mg=1 tab, PO, BID, # 60 tab, 0 Refill(s) Start Date: 12/02/14 Status: Ordered Dextrose 50% Syringe 12.5 gm, 25 mL, Route: IVP, Drug Form: INJ, Dosing Weight 90.909, kg, PRN, PRN B lood Glucose Results, Start date: 12/02/14 11:51:00, Duration: 30 day, Stop date : 01/01/15 11:50:00 Start Date: 12/02/14 Stop Date: 12/05/14 Status: Discontinued Dextrose 50% Syringe 25 gm, 50 mL, Route: IVP, Drug Form: INJ, Dosing Weight 90.909, kg, PRN, PRN Blo od Glucose Results, Start date: 12/02/14 11:51:00, Duration: 30 day, Stop date: 01/01/15 11:50:00 Start Date: 12/02/14 Stop Date: 12/05/14 Status: Discontinued Epogen 10,000 unit, 1 mL, Route: IV, Drug form: INJ, Q-M-W-F, Dosing Weight 134.003, kg , Start date: 12/04/14 17:00:00, Duration: 30 day, Stop date: 01/01/15 17:00:00 Notes: (Same as: Procrit) epoetin evette 10,000 unit/1 ml VLFor non-dialysis use o nly. MEDICATION WASTE Product Size: [id number] unitProduct Wasted: ___ unit Start Date: 12/04/14 Stop Date: 12/04/14 Status: Deleted gabapentin 100 mg oral capsule 100 mg, 1 cap, Route: PO, Drug form: CAP, TID, Dosing Weight 90.909, kg, Start d ate: 12/02/14 13:00:00, Duration: 30 day, Stop date: 01/01/15 9:00:00 Notes: (Same as: Neurontin) Start Date: 12/02/14 Stop Date: 12/05/14 Status: Discontinued glucagon 1 mg, Route: IM, Drug form: PDR/INJ, PRN, Dosing Weight 90.909, kg, PRN Blood Gl ucose Results, Start date: 12/02/14 11:51:00, Duration: 30 day, Stop date: 01/01 11:50:00 Start Date: 12/02/14 Stop Date: 12/05/14 Status: Discontinued heparin 5,000 unit, 1 mL, Route: SUB-Q, Drug form: INJ, Q12H, Dosing Weight 134.003, kg, Start date: 12/02/14 21:00:00, Duration: 30 day, Stop date: 01/01/15 12:00:00 Notes: porcine heparin Start Date: 12/02/14 Stop Date: 12/05/14 Status: Discontinued hydrALAZINE 10 mg, 0.5 mL, Route: IVP, Drug form: INJ, Q6H, Dosing Weight 134.003, kg, PRN O ther -See Comment, Start date: 12/02/14 15:20:00, Duration: 30 day, Stop date: 0 01/01/15 15:19:00 Notes: (Same as: Apresoline)Push over 5 minutes Start Date: 12/02/14 Stop Date: 12/05/14 Status: Discontinued hydrOXYzine 25 mg, 1 tab, Route: PO, Drug form: TAB, QID, Dosing Weight 134.003, kg, PRN Itc olivia, Start date: 12/03/14 9:13:00, Duration: 30 day, Stop date: 01/02/15 9:12:0 0 Notes: (Same as: Atarax) Avoid alcohol. Start Date: 12/03/14 Stop Date: 12/05/14 Status: Discontinued insulin aspart 10 unit, 0.1 mL, Route: SUB-Q, Drug form: SOLN, TID-Before Meals, Dosing Weight 90.909, kg, PRN Blood Glucose Results, Start date: 12/02/14 11:51:00, Duration: 30 day, Stop date: 01/01/15 11:50:00 Notes: Roll in palms of hands gently; Do not shake vigorously. (Same as: NovoLO G)"single patient use only" Stable for 28 days at room temperature.Expires in _ ____ days from Date Start Date: 12/02/14 Stop Date: 12/05/14 Status: Discontinued insulin aspart 8 unit, 0.08 mL, Route: SUB-Q, Drug form: SOLN, TID-Before Meals, Dosing Weight 90.909, kg, PRN Blood Glucose Results, Start date: 12/02/14 11:51:00, Duration: 30 day, Stop date: 01/01/15 11:50:00 Notes: Roll in palms of hands gently; Do not shake vigorously. (Same as: NovoLO G)"single patient use only" Stable for 28 days at room temperature.Expires in _ ____ days from Date Start Date: 12/02/14 Stop Date: 12/05/14 Status: Discontinued insulin aspart 6 unit, 0.06 mL, Route: SUB-Q, Drug form: SOLN, TID-Before Meals, Dosing Weight 90.909, kg, PRN Blood Glucose Results, Start date: 12/02/14 11:51:00, Duration: 30 day, Stop date: 01/01/15 11:50:00 Notes: Roll in palms of hands gently; Do not shake vigorously. (Same as: NovoLO G)"single patient use only" Stable for 28 days at room temperature.Expires in _ ____ days from Date Start Date: 12/02/14 Stop Date: 12/05/14 Status: Discontinued insulin aspart 2 unit, 0.02 mL, Route: SUB-Q, Drug form: SOLN, Bedtime, Dosing Weight 90.909, k g, PRN Blood Glucose Results, Start date: 12/02/14 11:51:00, Duration: 30 day, S top date: 01/01/15 11:50:00 Notes: Roll in palms of hands gently; Do not shake vigorously. (Same as: NovoLO G)"single patient use only" Stable for 28 days at room temperature.Expires in _ ____ days from Date Start Date: 12/02/14 Stop Date: 12/05/14 Status: Discontinued insulin aspart 1 unit, 0.01 mL, Route: SUB-Q, Drug form: SOLN, Bedtime, Dosing Weight 90.909, k g, PRN Blood Glucose Results, Start date: 12/02/14 11:51:00, Duration: 30 day, S top date: 01/01/15 11:50:00 Notes: Roll in palms of hands gently; Do not shake vigorously. (Same as: NovoLO G)"single patient use only" Stable for 28 days at room temperature.Expires in _ ____ days from Date Start Date: 12/02/14 Stop Date: 12/05/14 Status: Discontinued insulin aspart 4 unit, 0.04 mL, Route: SUB-Q, Drug form: SOLN, Bedtime, Dosing Weight 90.909, k g, PRN Blood Glucose Results, Start date: 12/02/14 11:51:00, Duration: 30 day, S top date: 01/01/15 11:50:00 Notes: Roll in palms of hands gently; Do not shake vigorously. (Same as: NovoLO G)"single patient use only" Stable for 28 days at room temperature.Expires in _ ____ days from Date Start Date: 12/02/14 Stop Date: 12/05/14 Status: Discontinued insulin aspart 3 unit, 0.03 mL, Route: SUB-Q, Drug form: SOLN, Bedtime, Dosing Weight 90.909, k g, PRN Blood Glucose Results, Start date: 12/02/14 11:51:00, Duration: 30 day, S top date: 01/01/15 11:50:00 Notes: Roll in palms of hands gently; Do not shake vigorously. (Same as: NovoLO G)"single patient use only" Stable for 28 days at room temperature.Expires in _ ____ days from Date Start Date: 12/02/14 Stop Date: 12/05/14 Status: Discontinued insulin aspart 2 unit, 0.02 mL, Route: SUB-Q, Drug form: SOLN, TID-Before Meals, Dosing Weight 90.909, kg, PRN Blood Glucose Results, Start date: 12/02/14 11:51:00, Duration: 30 day, Stop date: 01/01/15 11:50:00 Notes: Roll in palms of hands gently; Do not shake vigorously. (Same as: NovoLO G)"single patient use only" Stable for 28 days at room temperature.Expires in _ ____ days from Date Start Date: 12/02/14 Stop Date: 12/05/14 Status: Discontinued insulin aspart 4 unit, 0.04 mL, Route: SUB-Q, Drug form: SOLN, TID-Before Meals, Dosing Weight 90.909, kg, PRN Blood Glucose Results, Start date: 12/02/14 11:51:00, Duration: 30 day, Stop date: 01/01/15 11:50:00 Notes: Roll in palms of hands gently; Do not shake vigorously. (Same as: NovoLO G)"single patient use only" Stable for 28 days at room temperature.Expires in _ ____ days from Date Start Date: 12/02/14 Stop Date: 12/05/14 Status: Discontinued Kayexalate 30 gm, 120 mL, Route: PO, Drug form: SUSP, ONCE, Dosing Weight 90.909, kg, Prior ity: STAT, Start date: 12/02/14 10:28:00, Stop date: 12/02/14 10:28:00 Notes: (sodium polystyrene sulfonate 15 gm/60 ml VALERIO) Shake well before use. (Same as: Kayexalate, SPS) Start Date: 12/02/14 Stop Date: 12/02/14 Status: Completed Lantus 15 unit, 0.15 mL, Route: SUB-Q, Drug form: INJ, Bedtime, Dosing Weight 134.003, kg, Start date: 12/04/14 21:00:00, Duration: 30 day, Stop date: 01/02/15 21:00:0 0 Notes: Same as Cristina Millan not hold insulin without contacting prescri jez"single patient use only" Stable for 28 days at room temperature.Expires in days from Date Start Date: 12/04/14 Stop Date: 12/05/14 Status: Discontinued Lubriderm Lotion topical 1 appl, Route: TOP, BID, Drug form: LOT, PRN Dry Skin, Start date: 12/03/14 10:2 2:00, Duration: 30 day, Stop date: 01/02/15 10:21:00 Start Date: 12/03/14 Stop Date: 12/05/14 Status: Discontinued Lubriderm Lotion topical 1 appl, TOP, BID, PRN Dry Skin, # 240 mL, 0 Refill(s) Start Date: 12/05/14 Stop Date: 12/19/14 Status: Ordered Sharples 5/325 oral tablet 1 tab, PO, Q4H, PRN Pain Score 1-3, # 30 tab, 0 Refill(s) Start Date: 12/05/14 Stop Date: 12/06/14 Status: Completed Sharples 5/325 oral tablet 1 tab, Route: PO, Drug Form: TAB, Dosing Weight 134.003, kg, Q4H, PRN Pain Score 1-3, Start date: 12/04/14 21:18:00, Duration: 30 day, Stop date: 01/03/15 21:17 :00 Notes: (Same as: Sharples 325/5) Do not exceed 4gm/day of acetaminophen. Start Date: 12/04/14 Stop Date: 12/05/14 Status: Discontinued Sharples 5/325 oral tablet 1 tab, Route: PO, Drug Form: TAB, Dosing Weight 134.003, kg, ONCE, PRN Pain Scor e 1-3, Start date: 12/02/14 21:24:00, Stop date: 01/01/15 21:23:00 Notes: (Same as: Sharples 325/5) Do not exceed 4gm/day of acetaminophen. Start Date: 12/02/14 Stop Date: 12/03/14 Status: Completed NovoLIN R 20 unit, 0.2 mL, Route: SUB-Q, Drug form: SOLN, TID-Before Meals, Dosing Weight 90.909, kg, Start date: 12/02/14 16:30:00, Duration: 30 day, Stop date: 01/01/15 11:30:00 Notes: (Same as: Humulin R) Roll in palms of hands gently; Do not shake vigorou sly. "single patient use only"(Restricted to patients requiring a dose > 60 units) Stable for 28 days at room temperatureExpires in days from _ Date Start Date: 12/02/14 Stop Date: 12/05/14 Status: Discontinued NovoLIN R 100 units/mL injectable solution 20 unit, SUB-Q, TID-Before Meals, # 10 mL, 0 Refill(s) Start Date: 12/02/14 Status: Ordered NS 1,000 mL 1,000 mL, Rate: 75 ml/hr, Infuse over: 13.3 hr, Route: IV, Dosing Weight 90.909 kg, Total Volume: 1,000, Start date: 12/02/14 11:54:00, Duration: 1 doses or scooby es, Stop date: 12/03/14 1:11:00 Start Date: 12/02/14 Stop Date: 12/02/14 Status: Discontinued ondansetron 4 mg, 2 mL, Route: IVP, Drug form: INJ, Q6H, Dosing Weight 134.003, kg, PRN Naus ea & Vomiting, Start date: 12/02/14 13:14:00, Duration: 30 day, Stop date: 01/01/15 13:13:00 Notes: (Same as: Zofran) MEDICATION WASTE Product Size: 4 mgProduct Was clarissa: ___ mg Start Date: 12/02/14 Stop Date: 12/05/14 Status: Discontinued Pepcid 20 mg, 2 mL, Route: IVP, Drug form: INJ, Daily, Dosing Weight 134.003, kg, Start date: 12/03/14 11:00:00, Duration: 30 day, Stop date: 01/02/15 9:00:00 Notes: (Same as: Pepcid)Can be dilute in 5-10cc NS IVP: Slow IV push over at le ast 2 minutes. Start Date: 12/03/14 Stop Date: 12/05/14 Status: Discontinued predniSONE 40 mg, 2 tab, Route: PO, Drug form: TAB, Daily, Dosing Weight 134.003, kg, Start date: 12/03/14 9:00:00, Duration: 30 day, Stop date: 01/01/15 9:00:00 Notes: Take with food. Start Date: 12/03/14 Stop Date: 12/05/14 Status: Discontinued predniSONE 20 mg oral tablet 20 mg=1 tab, PO, Daily, # 10 tab, 0 Refill(s) Start Date: 12/05/14 Stop Date: 12/06/14 Status: Completed Procrit (ESRD) 10,000 unit, 1 mL, Route: SUB-Q, Drug form: INJ, Q-Tu-Th-Sa, Dosing Weight 134.0 03, kg, Start date: 12/03/14 20:00:00, Duration: 30 day, Stop date: 01/02/15 17: 00:00 Notes: (Same as: Procrit) epoetin evette 93690 unit/1 ml VL.For dialysis use only. (Procrit) MEDICATION WASTE Product Size: 96122 unitProduct Wasted: ___ unit Start Date: 12/03/14 Stop Date: 12/05/14 Status: Discontinued Renvela 1,600 mg, 2 tab, Route: PO, Drug form: TAB, TID-Meals, Dosing Weight 90.909, kg, Start date: 12/02/14 17:00:00, Duration: 30 day, Stop date: 01/01/15 12:00:00 Notes: Same as: Renvela Start Date: 12/02/14 Stop Date: 12/04/14 Status: Discontinued Renvela 1,600 mg, 2 tab, Route: PO, Drug form: TAB, PRN, PRN With Snack, Start date: 13:22:00, Duration: 30 day, Stop date: 01/01/15 13:21:00 Notes: Same as: Renvela Start Date: 12/02/14 Stop Date: 12/04/14 Status: Discontinued Renvela 1,600 mg, 2 tab, Route: PO, Drug form: TAB, TID-Meals, Dosing Weight 90.909, kg, Start date: 12/04/14 17:00:00, Stop date: 01/03/15 12:00:00 Notes: Same as: Renvela Start Date: 12/04/14 Stop Date: 12/05/14 Status: Discontinued Renvela 1,600 mg, 2 tab, Route: PO, Drug form: TAB, PRN, PRN With Snack, Start date: 14:24:00, Stop date: 01/03/15 14:23:00 Notes: Same as: Renvela Start Date: 12/04/14 Stop Date: 12/05/14 Status: Discontinued Saline Flush 0.9% 10 mL, Route: IVP, Drug Form: INJ, Dosing Weight 90.909, kg, PRN, PRN Line Flush , Start date: 12/02/14 8:58:00, Duration: 30 day, Stop date: 01/01/15 8:57:00 Start Date: 12/02/14 Stop Date: 12/02/14 Status: Deleted Sodium Chloride 0.9% IV 25 mL, Route: IV, Start date: 12/02/14 13:14:00, Duration: 30 day, Stop date: 13:13:00, PRN Line Flush Start Date: 12/02/14 Stop Date: 12/05/14 Status: Discontinued Solu-MEDROL 125 mg, 2 mL, Route: IVP, Drug form: INJ, ONCE, Dosing Weight 134.003, kg, Start date: 12/03/14 9:14:00, Stop date: 12/03/14 9:14:00 Notes: (Same as:Solu-MEDROL, A-Methapred) Start Date: 12/03/14 Stop Date: 12/03/14 Status: Completed triamcinolone topical 0.1% lotion 1 appl, Route: TOP, TID, Drug form: LOT, Start date: 12/03/14 13:00:00, Duration : 30 day, Stop date: 01/02/15 9:00:00 Notes: (Same As: Triamcinolone Acetonide Topical) Start Date: 12/03/14 Stop Date: 12/05/14 Status: Discontinued triamcinolone topical 0.1% lotion 1 appl, TOP, TID, # 240 mL, 0 Refill(s) Start Date: 12/05/14 Stop Date: 12/06/14 Status: Completed Tylenol 650 mg, 2 tab, Route: PO, Drug form: TAB, Q6H, Dosing Weight 134.003, kg, PRN Pa in Score 1-3, Start date: 12/04/14 20:39:00, Duration: 30 day, Stop date: 20:38:00 Notes: Do not exceed 4 gm/day. (Same as: Tylenol) Start Date: 12/04/14 Stop Date: 12/05/14 Status: Discontinued Results ELECTROLYTES 1 2 3 Most recent to oldest [Reference Range]: 138 mEq/L (12/04/14 6:30 AM) 141 mEq/L (12/03/14 3:47 AM) 137 mEq/L (12/02/14 8:56 AM) Sodium Lvl [135-145 mEq/L] 4.4 mEq/L (12/04/14 6:30 AM) 4.0 mEq/L (12/03/14 3:47 AM) 5.4 mEq/L *HI* (12/02/14 8:56 AM) Potassium Lvl [3.5-5.1 mEq/L] 101 mEq/L (12/04/14 6:30 AM) 103 mEq/L (12/03/14 3:47 AM) 102 mEq/L (12/02/14 8:56 AM) Chloride Lvl [95-109 mEq/L] 23 mEq/L *LOW* (12/04/14 6:30 AM) 26 mEq/L (12/03/14 3:47 AM) 19 mEq/L *LOW* (12/02/14 8:56 AM) CO2 [24-32 mEq/L] 18.4 mEq/L (12/04/14 6:30 AM) 16.0 mEq/L (12/03/14 3:47 AM) 21.4 mEq/L *HI* (12/02/14 8:56 AM) AGAP [10.0-20.0 mEq/L] CHEM PANEL 1 2 3 Most recent to oldest [Reference Range]: 9.0 mg/dL *HI* (12/04/14 6:30 AM) 7.2 mg/dL *HI* (12/03/14 3:47 AM) 11.0 mg/dL *HI* (12/02/14 8:56 AM) Creatinine Lvl [0.5-1.4 mg/dL] 5 mL/min/1.73m2 1 *NA* (12/04/14 6:30 AM) 7 mL/min/1.73m2 2 *NA* (12/03/14 3:47 AM) 4 mL/min/1.73m2 3 *NA* (12/02/14 8:56 AM) eGFR 60 mg/dL *HI* (12/04/14 6:30 AM) 49 mg/dL *HI* (12/03/14 3:47 AM) 90 mg/dL *HI* (12/02/14 8:56 AM) BUN [7-22 mg/dL] 8 (12/02/14 8:56 AM) B/C Ratio [6-25] 220 mg/dL *HI* (12/04/14 6:30 AM) 77 mg/dL (12/03/14 3:47 AM) 200 mg/dL *HI* (12/02/14 8:56 AM) Glucose Lvl [70-99 mg/dL] 6.6 g/dL (12/02/14 8:56 AM) Total Protein [6.4-8.4 g/dL] 2.6 g/dL *LOW* (12/02/14 8:56 AM) Albumin Lvl [3.5-5.0 g/dL] 4.0 g/dL (12/02/14 8:56 AM) Globulin [2.0-4.0 g/dL] 0.6 *LOW* (12/02/14 8:56 AM) A/G Ratio [0.7-1.6] 7.8 mg/dL *LOW* (12/04/14 6:30 AM) 7.7 mg/dL *LOW* (12/03/14 3:47 AM) 8.0 mg/dL *LOW* (12/02/14 8:56 AM) Calcium Lvl [8.5-10.5 mg/dL] 6.8 mg/dL *HI* (12/04/14 6:30 AM) 5.7 mg/dL *HI* (12/03/14 3:47 AM) Phosphorus [2.5-4.5 mg/dL] 2.2 mg/dL (12/04/14 6:30 AM) 1.9 mg/dL (12/03/14 3:47 AM) Magnesium Lvl [1.8-2.4 mg/dL] 198 unit/L *HI* (12/02/14 8:56 AM) ALT [0-65 unit/L] 122 unit/L *HI* (12/02/14 8:56 AM) AST [0-37 unit/L] 161 unit/L *HI* (12/02/14 8:56 AM) Alk Phos [39-136 unit/L] 0.4 mg/dL (12/02/14 8:56 AM) Bili Total [0.2-1.3 mg/dL] 70 unit/L (12/02/14 8:56 AM) Amylase Lvl [25-115 unit/L] 229 unit/L (12/02/14 8:56 AM) Lipase Lvl [73-393 unit/L] 1Result Comment: The eGFR is calculated using the CKD-EPI formula. In most young, healthy individuals the eGFR will be >90 mL/min/1.73m2. The eGFR declines with age. An eGFR of 60-89 may be normal in some populations, particularly the elderly, for whom the CKD-EPI formula has not been extensively validated. Use of the eGFR is not recommended in the following populations: Individuals with unstable creatinine concentrations, including patients and those with serious co-morbid conditions. Patients with extremes in muscle mass or diet. The data above are obtained from the National Kid[employer] Disease Education Program ( [employer]) which additionally recommends that when the eGFR is used in patients with extremes of body mass index for purposes of drug dosing, the eGFR should be mul tiplied by the estimated BMI. 2Result Comment: The eGFR is calculated using the CKD-EPI formula. In most young, healthy individuals the eGFR will be >90 mL/min/1.73m2. The eGFR declines with age. An eGFR of 60-89 may be normal in some populations, particularly the elderly, for whom the CKD-EPI formula has not been extensively validated. Use of the eGFR is not recommended in the following populations: Individuals with unstable creatinine concentrations, including patients and those with serious co-morbid conditions. Patients with extremes in muscle mass or diet. The data above are obtained from the National Kid[employer] Disease Education Program ( [employer]) which additionally recommends that when the eGFR is used in patients with extremes of body mass index for purposes of drug dosing, the eGFR should be mul tiplied by the estimated BMI. 3Result Comment: The eGFR is calculated using the CKD-EPI formula. In most young, healthy individuals the eGFR will be >90 mL/min/1.73m2. The eGFR declines with age. An eGFR of 60-89 may be normal in some populations, particularly the elderly, for whom the CKD-EPI formula has not been extensively validated. Use of the eGFR is not recommended in the following populations: Individuals with unstable creatinine concentrations, including patients and those with serious co-morbid conditions. Patients with extremes in muscle mass or diet. The data above are obtained from the National Kid[employer] Disease Education Program ( [employer]) which additionally recommends that when the eGFR is used in patients with extremes of body mass index for purposes of drug dosing, the eGFR should be mul tiplied by the estimated BMI. CARDIAC ENZYMES 1 2 3 Most recent to oldest [Reference Range]: 125 unit/L (12/05/14 9:22 AM) 253 unit/L *HI* (12/04/14 6:30 AM) 717 unit/L *HI* (12/03/14 3:47 AM) Total CK [12-191 unit/L] 12.5 ng/mL *HI* (12/02/14 8:56 AM) CK MB [0.5-3.6 ng/mL] 0.7 (12/02/14 8:56 AM) CK MB Index [0.0-2.5] <0.02 ng/mL (12/02/14 8:56 AM) Troponin-I [0.00-0.40 ng/mL] 74 pg/mL (12/02/14 8:56 AM) BNP [<=100 pg/mL] SPECIAL CHEMISTRY 1 2 3 Most recent to oldest [Reference Range]: 7.5 % *HI* (12/03/14 3:47 AM) Hgb A1C [<=5.6 %] URINE AND STOOL 1 2 3 Most recent to oldest [Reference Range]: Clear (12/02/14 9:56 AM) UA Turbidity [Clear] Light Yellow *NA* (12/02/14 9:56 AM) UA Color [Yellow] 7.5 (12/02/14 9:56 AM) UA pH [5.0-8.0] 1.009 (12/02/14 9:56 AM) UA Spec Grav [<=1.030] 500 mg/dL *ABN* (12/02/14 9:56 AM) UA Glucose [Negative mg/dL] Large *ABN* (12/02/14 9:56 AM) UA Blood [Negative] TR *NA* (12/02/14 9:56 AM) UA Ketones >=300 mg/dL *ABN* (12/02/14 9:56 AM) UA Protein [Negative mg/dL] <=1.0 mg/dL *NA* (12/02/14 9:56 AM) UA Urobilinogen [0.1-1.0 mg/dL] Negative *NA* (12/02/14 9:56 AM) UA Bili [Negative] Trace *ABN* (12/02/14 9:56 AM) UA Leuk Est [Negative] Negative (12/02/14 9:56 AM) UA Nitrite [Negative] 15 /HPF *HI* (12/02/14 9:56 AM) UA WBC [0-5 /HPF] 5 /HPF *HI* (12/02/14 9:56 AM) UA RBC [0-2 /HPF] Occasional /HPF *NA* (12/02/14 9:56 AM) UA Bacteria [None Seen /HPF] Few /LPF *NA* (12/02/14 9:56 AM) UA Sq Epi [Few /LPF] 1 /LPF (12/02/14 9:56 AM) UA Hyal Cast [0-2 /LPF] Few /LPF *NA* (12/02/14 9:56 AM) UA Mucus [None Seen /LPF] IMMUNOLOGY 1 2 3 Most recent to oldest [Reference Range]: Negative (12/02/14 10:06 PM) AIMEE [Negative] Negative *NA* (12/02/14 10:06 PM) HIV 1/2 Ab [Negative] Negative *NA* (12/02/14 10:06 PM) Negative *NA* (12/02/14 10:06 PM) Hep Bs Ag [Negative] Negative *NA* (12/02/14 10:06 PM) Hep B Core IgM [Negative] Negative *NA* (12/02/14 10:06 PM) Hep A IgM [Negative] Negative *NA* (12/02/14 10:06 PM) Hep C Ab HEMATOLOGY 1 2 3 Most recent to oldest [Reference Range]: 7.4 K/CMM (12/05/14 9:22 AM) 6.3 K/CMM (12/04/14 6:30 AM) 8.2 K/CMM (12/03/14 3:47 AM) WBC [3.7-10.4 K/CMM] 3.18 M/CMM *LOW* (12/05/14 9:22 AM) 2.71 M/CMM *LOW* (12/04/14 6:30 AM) 2.85 M/CMM *LOW* (12/03/14 3:47 AM) RBC [4.20-5.40 M/CMM] 9.9 g/dL *LOW* (12/05/14 9:22 AM) 8.5 g/dL *LOW* (12/04/14 6:30 AM) 9.1 g/dL *LOW* (12/03/14 3:47 AM) Hgb [12.0-16.0 g/dL] 31.1 % *LOW* (12/05/14 9:22 AM) 26.6 % *LOW* (12/04/14 6:30 AM) 27.3 % *LOW* (12/03/14 3:47 AM) Hct [36.0-48.0 %] 98.1 fL *HI* (12/05/14 9:22 AM) 98.2 fL *HI* (12/04/14 6:30 AM) 95.7 fL (12/03/14 3:47 AM) MCV [80.0-98.0 fL] 31.3 pg *HI* (12/05/14 9:22 AM) 31.5 pg *HI* (12/04/14 6:30 AM) 31.8 pg *HI* (12/03/14 3:47 AM) MCH [27.0-31.0 pg] 31.9 g/dL *LOW* (12/05/14 9:22 AM) 32.0 g/dL (12/04/14 6:30 AM) 33.2 g/dL (12/03/14 3:47 AM) MCHC [32.0-36.0 g/dL] 16.0 % *HI* (12/05/14 9:22 AM) 16.0 % *HI* (12/04/14 6:30 AM) 15.9 % *HI* (12/03/14 3:47 AM) RDW [11.5-14.5 %] 108 K/CMM *LOW* (12/05/14 9:22 AM) 143 K/CMM (12/04/14 6:30 AM) 163 K/CMM (12/03/14 3:47 AM) Platelet [133-450 K/CMM] 9.3 fL (12/05/14 9:22 AM) 9.3 fL (12/04/14 6:30 AM) 8.6 fL (12/03/14 3:47 AM) MPV [7.4-10.4 fL] 71.4 % (12/05/14 9:22 AM) 68.3 % (12/02/14 8:56 AM) Segs [45.0-75.0 %] 23.5 % (12/05/14 9:22 AM) 11.5 % *LOW* (12/02/14 8:56 AM) Lymphocytes [20.0-40.0 %] 4.1 % (12/05/14 9:22 AM) 4.8 % (12/02/14 8:56 AM) Monocytes [2.0-12.0 %] 0.8 % (12/05/14 9:22 AM) 14.9 % *HI* (12/02/14 8:56 AM) Eosinophils [0.0-4.0 %] 0.2 % (12/05/14 9:22 AM) 0.5 % (12/02/14 8:56 AM) Basophils [0.0-1.0 %] 5.3 K/CMM (12/05/14 9:22 AM) 6.2 K/CMM (12/02/14 8:56 AM) Segs-Bands # [1.5-8.1 K/CMM] 1.8 K/CMM (12/05/14 9:22 AM) 1.0 K/CMM (12/02/14 8:56 AM) Lymphocytes # [1.0-5.5 K/CMM] 0.3 K/CMM (12/05/14 9:22 AM) 0.4 K/CMM (12/02/14 8:56 AM) Monocytes # [0.0-0.8 K/CMM] 0.1 K/CMM (12/05/14 9:22 AM) 1.4 K/CMM *HI* (12/02/14 8:56 AM) Eosinophils # [0.0-0.5 K/CMM] 0.0 K/CMM (12/05/14 9:22 AM) 0.0 K/CMM (12/02/14 8:56 AM) Basophils # [0.0-0.2 K/CMM] 1+ *ABN* (12/05/14 9:22 AM) 1+ *ABN* (12/02/14 8:56 AM) Macrocyte [None Seen] WBC'S - ABSOLUTE EOSINOPHILA - REACTIVE PROCESS. NO BLASTS. RBC'S - MILD NORMOCYTIC,NORMOCHROMIC ANEMIA WITH NO SIGNIFICANT MORPHOLOGIC ABNORMALITIES. PLATELETS - UNREMARKABLE. Yasmin IRBY /WILFREDO *NA* (12/02/14 8:56 AM) PB Smear Path Normal (12/05/14 9:22 AM) Normal (12/02/14 8:56 AM) Plt Morph 14 mm/hr (12/02/14 10:06 PM) Sed Rate [0-20 mm/hr] 16.4 seconds *HI* (12/02/14 8:56 AM) PT [12.0-14.7 seconds] 1.31 *HI* (12/02/14 8:56 AM) INR [0.85-1.17] 30.3 seconds (12/02/14 8:56 AM) PTT [22.9-35.8 seconds] Immunizations Vaccine Date Refusal Reason pneumococcal 23-valent vaccine 11/14/12 tetanus-diphtheria toxoids 01/23/13 Procedures Procedure Date Related Diagnosis Body Site Arteriovenous fistula operation1 Cholecystectomy 1lt. lower arm Social History Social History Type Response Smoking Status Never smoker; Ready to change: No; Concerns about tobacco use in household: No; Exposure to Tobacco Smoke None; Cigarette Smoking Last 365 Days No; Reg Smoking Cessation Counseling No Assessment and Plan Extracted from: Title: Clinical Document Author: Franklin Fonseca MD Date: 12/05/14 DATE OF SERVICE: 12/04/2014 REFERRING PHYSICIAN: TYPE: INFECTIOUS DISEASES> REASON FOR FOLLOW UP: Drug hypersensitivity reaction. SUBJECTIVE: Her rash is better, no fever or chills, no other events. MEDICATIONS: Reviewed, Off abx on prednisone. PHYSICAL EXAMINATION: GENERAL: Morbidly obese, no acute distress. VITAL SIGNS: Blood pressure 132/67, pulse 89. T-max 98.2. CHEST: Decreased breath sound bilaterally. No wheezing. HEART: Regular rate rhythm. S1, S2. ABDOMEN: Soft, obese, nontender. EXTREMITIES: Patient has chronic venous stasis lymphedema of lower extremities. SKIN: Small blisters noted, macular rash extending from the neck to upper extremity to the trunk and the lower extremity noted with few excoriations consistent with itching. LABORATORY DATA: Reviewed. Blood Cx is NTD. ASSESSMENT: 1. 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 2. Acute rhabdomyolysis, rule out viral syndrome. 3. End-stage renal disease. 4. Chronic lymphedema of the lower extremity with venous stasis ulcers. 5. Insulin-dependent diabetes. RECOMMENDATION: 1. continue steroids and antihistamines. 2. Will follow up labs and cultures. 3. Continue local skin care.
--- OUTSIDE RECORDS SUMMARY | 2018-03-16 21:35 | XMS REPORT | Continuity of Care Document ---
Author Author [facility] Organization [facility] Address Unknown Phone Unavailable Care Team Providers Care Skilled Helper Name Role Phone MD Gonzalez Eleanor [...] Location Date Lab Report Ary Gonzalez MD [facility] Nov 03, 2013 Allergies, Adverse Reactions, Alerts Type Substance [...] Comments Jun 30, 2013 mammogram Completed at [facility] Jul 18, 2013 smoking status never smoker [...] Active DIURETICS Jul 18, 2013 Active ZOSTAVAX 26300 UNT/0.65ML SOLR Administer 0.65 mL intramuscular x1 [...]
--- OUTSIDE RECORDS SUMMARY | 2018-03-16 21:35 | XMS REPORT | Summary of Care ---
Author Author [facility] Organization [facility] Address Unknown Phone Unavailable Encounter ELIA Villela(DULCE) [id number] Date(s): 12/15/14 - 12/19/14 [facility] [address] [place] [address]- Final: Discharge Disposition: Home Attending Physician: Charlie Cavazos MD PHD Admitting Physician: Charlie Cavazos MD PHD Vital Signs 1 2 3 Most recent to oldest [Reference Range]: 160.02 cm (12/15/14 9:39 PM) 160.02 cm (12/15/14 2:20 PM) Height 1 2 3 Most recent to oldest [Reference Range]: 152 kg (12/18/14 12:19 PM) 152 kg (12/16/14 12:15 PM) Current Weight 1 2 3 Most recent to oldest [Reference Range]: 98.0 DegF (12/19/14 4:00 PM) 98.4 DegF (12/19/14 12:00 PM) 97.8 DegF (12/19/14 8:00 AM) Temperature Oral [96.4-99.1 DegF] 1 2 3 Most recent to oldest [Reference Range]: 151/83 mmHg *HI* (12/19/14 4:00 PM) 126/64 mmHg (12/19/14 12:00 PM) 136/66 mmHg (12/19/14 8:00 AM) Blood Pressure [90-140/60-90 mmHg] 1 2 3 Most recent to oldest [Reference Range]: 18 BRMIN (12/19/14 4:00 PM) 18 BRMIN (12/19/14 12:00 PM) 18 BRMIN (12/19/14 8:00 AM) Respiratory Rate [14-20 BRMIN] 1 2 3 Most recent to oldest [Reference Range]: 72 bpm (12/19/14 4:00 PM) 86 bpm (12/19/14 12:00 PM) 88 bpm (12/19/14 8:00 AM) Peripheral Pulse Rate [60-100 bpm] 1 2 3 Most recent to oldest [Reference Range]: 95.199 kg (12/15/14 9:39 PM) 159.091 kg (12/15/14 2:20 PM) Weight 1 2 3 Most recent to oldest [Reference Range]: 37.18 m2 (12/15/14 9:39 PM) 62.13 m2 (12/15/14 2:20 PM) Body Mass Index Problem List Condition [...] - Active Hypertension(Confirm ed) Hyperglycemia(Confir Active med) [id number] 10/23/13 Active Morbid Active obesity(Confirmed) Peripheral edema11 07/18/13 Active Peripheral venous 10/23/13 Active [id number] Retinal phuclisz15 08/07/13 Active Type II diabetes 07/18/13 Active mellitus [id number] 1Data migrated from [employer] on 10/13/14. [...] [employer] on 10/13/14. 14Data migrated from [employer] on 10/13/14. Allergies, Adverse Reactions, Alerts Substance Reaction Severity Status lisinopril1 Active traMADol Active 1Data migrated from [employer] on 09/11/14. Originally documented as LISINOPRIL. Medications amLODIPine 10 mg, 1 tab, Route: PO, Drug form: TAB, Daily, Dosing Weight 95.199, kg, Start date: 12/16/14 13:27:00, Duration: 30 day, Stop date: 01/15/15 9:00:00 Notes: (Same as: [facility]) Start Date: 12/16/14 Stop Date: 12/19/14 Status: Discontinued amoxicillin 250 mg oral capsule 250 mg=1 cap, PO, Daily, X 14 day, # 14 cap, 0 Refill(s) Start Date: 12/19/14 Stop Date: 01/02/15 Status: Ordered Benadryl 50 mg, 1 cap, Route: PO, Drug form: CAP, Q6H, Dosing Weight 95.199, kg, PRN Itch ing, Start date: 12/16/14 13:02:00, Stop date: 01/15/15 13:01:00 Notes: (Same as: Benadryl) Start Date: 12/16/14 Stop Date: 12/19/14 Status: Discontinued cefepime + Sodium Chloride 0.9% IV 100 mL 1 gm, Route: IVPB, [id number], Dosing Weight 159.091, kg, Priority: STAT, Start emili e: 12/15/14 20:02:00, Duration: 30 day, Stop date: 01/13/15 20:02:00 Notes: (Same As: Maxipime) MEDICATION WASTE Product Size: 1000 mgProduc t Wasted: ___ mg Start Date: 12/15/14 Stop Date: 12/19/14 Status: Discontinued Cipro 250 mg oral tablet 250 mg=1 tab, PO, Q24H, X 14 day, # 14 tab, 0 Refill(s) Start Date: 12/19/14 Stop Date: 01/02/15 Status: Ordered clindamycin 600 mg, 50 mL, Route: IVPB, Drug form: INJ, ONCE, Dosing Weight 159.091, kg, Stefani ority: STAT, Start date: 12/15/14 17:58:00, Stop date: 12/15/14 17:58:00 Start Date: 12/15/14 Stop Date: 12/15/14 Status: Completed cloNIDine 0.2 mg oral tablet 0.2 mg, 1 tab, Route: PO, Drug form: TAB, Q12H, Dosing Weight 95.199, kg, Start date: 12/16/14 21:00:00, Duration: 30 day, Stop date: 01/15/15 9:00:00 Notes: (Same As: Catapres) Start Date: 12/16/14 Stop Date: 12/18/14 Status: Discontinued cloNIDine 0.2 mg oral tablet 0.1 mg, 1 tab, Route: PO, Drug form: TAB, TID, Dosing Weight 95.199, kg, Start d ate: 12/18/14 13:00:00, Duration: 30 day, Stop date: 01/17/15 9:00:00 Notes: (Same As: Catapres) Start Date: 12/18/14 Stop Date: 12/19/14 Status: Discontinued Colace 100 mg oral capsule 100 mg, 1 cap, Route: PO, Drug form: CAP, BID, Dosing Weight 159.091, kg, PRN Co nstipation, Start date: 12/15/14 20:03:00, Duration: 30 day, Stop date: 01/14/15 20:02:00 Notes: (Same as: Colace) (Do Not Crush) Start Date: 12/15/14 Stop Date: 12/19/14 Status: Discontinued Dextrose 50% Syringe 12.5 gm, 25 mL, Route: IVP, Drug Form: INJ, Dosing Weight 159.091, kg, PRN, PRN Blood Glucose Results, Start date: 12/15/14 20:02:00, Duration: 30 day, Stop emili e: 01/14/15 20:01:00 Start Date: 12/15/14 Stop Date: 12/19/14 Status: Discontinued Dextrose 50% Syringe 25 gm, 50 mL, Route: IVP, Drug Form: INJ, Dosing Weight 159.091, kg, PRN, PRN Bl ood Glucose Results, Start date: 12/15/14 20:02:00, Duration: 30 day, Stop date: 01/14/15 20:01:00 Start Date: 12/15/14 Stop Date: 12/19/14 Status: Discontinued Dulcolax Laxative 10 mg, 1 supp, Route: AR, Drug form: SUPP, Daily, Dosing Weight 159.091, kg, PRN Constipation, Start date: 12/15/14 20:03:00, Duration: 30 day, Stop date: 01/14 20:02:00 Notes: (Same As: Dulcolax, Bisco-Lax) Start Date: 12/15/14 Stop Date: 12/19/14 Status: Discontinued epoetin evette 6,000 unit, 2 mL, Route: SUB-Q, Drug form: INJ, ONCE, Start date: 12/16/14 19:25 :00, Stop date: 12/16/14 19:25:00 Notes: (Same as: Procrit) epoetin evette 3000 unit/1 ml VL.For dialysis use only MEDICATION WASTE Product Size: 3000 unitProduct Wasted: ___ unit Start Date: 12/16/14 Stop Date: 12/16/14 Status: Completed Epogen (ESRD) 6,000 unit, 2 mL, Route: IV, Drug form: INJ, Q-M-W-F, Dosing Weight 95.199, kg, Start date: 12/18/14 17:00:00, Duration: 30 day, Stop date: 01/15/15 17:00:00 Notes: (Same as: Procrit) epoetin evette 3000 unit/1 ml VL.For dialysis use only MEDICATION WASTE Product Size: 3000 unitProduct Wasted: ___ unit Start Date: 12/18/14 Stop Date: 12/18/14 Status: Canceled Epogen (ESRD) 8,000 unit, 2 mL, Route: IV, Drug form: INJ, Q-M-W-F, Dosing Weight 95.199, kg, Start date: 12/18/14 17:00:00, Duration: 30 day, Stop date: 01/15/15 17:00:00 Notes: (Same as: Procrit) epoetin evette 4000 unit/1ml VLFor non-dialysis use only . (Procrit) MEDICATION WASTE Product Size: 4000 unitProduct Wasted: __ _ unit Start Date: 12/18/14 Stop Date: 12/19/14 Status: Discontinued ferrous sulfate 325 mg, 1 tab, Route: PO, Drug form: TAB, TID, Start date: 12/18/14 13:00:00, Du ration: 30 day, Stop date: 01/17/15 9:00:00 Notes: Give with food.iron elemental [id number] as ferrous sulfateDose=___mg allan mental iron Start Date: 12/18/14 Stop Date: 12/18/14 Status: Deleted gabapentin 100 mg oral capsule 100 mg, 1 cap, Route: PO, Drug form: CAP, TID, Dosing Weight 95.199, kg, Start d ate: 12/16/14 13:28:00, Duration: 30 day, Stop date: 01/15/15 8:00:00 Notes: (Same as: Neurontin) Start Date: 12/16/14 Stop Date: 12/19/14 Status: Discontinued glucagon 1 mg, Route: IM, Drug form: PDR/INJ, PRN, Dosing Weight 159.091, kg, PRN Blood G lucose Results, Start date: 12/15/14 20:02:00, Duration: 30 day, Stop date: 07/26 20:01:00 Start Date: 12/15/14 Stop Date: 12/19/14 Status: Discontinued hydrALAZINE 10 mg, 0.5 mL, Route: IVP, Drug form: INJ, Q4H, Dosing Weight 159.091, kg, PRN H ypertension, SBP>160, Priority: Routine, Start date: 12/15/14 20:03:00, Duration: 30 day, Stop date: 01/14/15 20:02:00 Notes: (Same as: Apresoline)Push over 5 minutes Start Date: 12/15/14 Stop Date: 12/19/14 Status: Discontinued hydrOXYzine 20 mg, 2 tab, Route: PO, Drug form: TAB, QID, Dosing Weight 95.199, kg, PRN Itch ing, Start date: 12/18/14 12:04:00, Duration: 30 day, Stop date: 01/17/15 12:03: 00 Notes: (Same as: Atarax) Avoid alcohol. Start Date: 12/18/14 Stop Date: 12/19/14 Status: Discontinued insulin aspart 10 unit, 0.1 mL, Route: SUB-Q, Drug form: SOLN, TID-Before Meals, Dosing Weight 159.091, kg, PRN Blood Glucose Results, Start date: 12/15/14 20:02:00, Duration: 30 day, Stop date: 01/14/15 20:01:00 Notes: Roll in palms of hands gently; Do not shake vigorously. (Same as: NovoLO G)"single patient use only" Stable for 28 days at room temperature.Expires in _ ____ days from Date Start Date: 12/15/14 Stop Date: 12/19/14 Status: Discontinued insulin aspart 8 unit, 0.08 mL, Route: SUB-Q, Drug form: SOLN, TID-Before Meals, Dosing Weight 159.091, kg, PRN Blood Glucose Results, Start date: 12/15/14 20:02:00, Duration: 30 day, Stop date: 01/14/15 20:01:00 Notes: Roll in palms of hands gently; Do not shake vigorously. (Same as: NovoLO G)"single patient use only" Stable for 28 days at room temperature.Expires in _ ____ days from Date Start Date: 12/15/14 Stop Date: 12/19/14 Status: Discontinued insulin aspart 2 unit, 0.02 mL, Route: SUB-Q, Drug form: SOLN, Bedtime, Dosing Weight 159.091, kg, PRN Blood Glucose Results, Start date: 12/15/14 20:02:00, Duration: 30 day, Stop date: 01/14/15 20:01:00 Notes: Roll in palms of hands gently; Do not shake vigorously. (Same as: NovoLO G)"single patient use only" Stable for 28 days at room temperature.Expires in _ ____ days from Date Start Date: 12/15/14 Stop Date: 12/19/14 Status: Discontinued insulin aspart 1 unit, 0.01 mL, Route: SUB-Q, Drug form: SOLN, Bedtime, Dosing Weight 159.091, kg, PRN Blood Glucose Results, Start date: 12/15/14 20:02:00, Duration: 30 day, Stop date: 01/14/15 20:01:00 Notes: Roll in palms of hands gently; Do not shake vigorously. (Same as: NovoLO G)"single patient use only" Stable for 28 days at room temperature.Expires in _ ____ days from Date Start Date: 12/15/14 Stop Date: 12/19/14 Status: Discontinued insulin aspart 4 unit, 0.04 mL, Route: SUB-Q, Drug form: SOLN, Bedtime, Dosing Weight 159.091, kg, PRN Blood Glucose Results, Start date: 12/15/14 20:02:00, Duration: 30 day, Stop date: 01/14/15 20:01:00 Notes: Roll in palms of hands gently; Do not shake vigorously. (Same as: NovoLO G)"single patient use only" Stable for 28 days at room temperature.Expires in _ ____ days from Date Start Date: 12/15/14 Stop Date: 12/19/14 Status: Discontinued insulin aspart 3 unit, 0.03 mL, Route: SUB-Q, Drug form: SOLN, Bedtime, Dosing Weight 159.091, kg, PRN Blood Glucose Results, Start date: 12/15/14 20:02:00, Duration: 30 day, Stop date: 01/14/15 20:01:00 Notes: Roll in palms of hands gently; Do not shake vigorously. (Same as: NovoLO G)"single patient use only" Stable for 28 days at room temperature.Expires in _ ____ days from Date Start Date: 12/15/14 Stop Date: 12/19/14 Status: Discontinued insulin aspart 2 unit, 0.02 mL, Route: SUB-Q, Drug form: SOLN, TID-Before Meals, Dosing Weight 159.091, kg, PRN Blood Glucose Results, Start date: 12/15/14 20:02:00, Duration: 30 day, Stop date: 01/14/15 20:01:00 Notes: Roll in palms of hands gently; Do not shake vigorously. (Same as: NovoLO G)"single patient use only" Stable for 28 days at room temperature.Expires in _ ____ days from Date Start Date: 12/15/14 Stop Date: 12/19/14 Status: Discontinued insulin aspart 6 unit, 0.06 mL, Route: SUB-Q, Drug form: SOLN, TID-Before Meals, Dosing Weight 159.091, kg, PRN Blood Glucose Results, Start date: 12/15/14 20:02:00, Duration: 30 day, Stop date: 01/14/15 20:01:00 Notes: Roll in palms of hands gently; Do not shake vigorously. (Same as: NovoLO G)"single patient use only" Stable for 28 days at room temperature.Expires in _ ____ days from Date Start Date: 12/15/14 Stop Date: 12/19/14 Status: Discontinued insulin aspart 4 unit, 0.04 mL, Route: SUB-Q, Drug form: SOLN, TID-Before Meals, Dosing Weight 159.091, kg, PRN Blood Glucose Results, Start date: 12/15/14 20:02:00, Duration: 30 day, Stop date: 01/14/15 20:01:00 Notes: Roll in palms of hands gently; Do not shake vigorously. (Same as: NovoLO G)"single patient use only" Stable for 28 days at room temperature.Expires in _ ____ days from Date Start Date: 12/15/14 Stop Date: 12/19/14 Status: Discontinued insulin glargine 100 units/mL subcutaneous solution 10 unit, SUB-Q, Daily, # 10 mL, 0 Refill(s) Start Date: 12/19/14 Status: Ordered insulin isophane-insulin regular 70/30 5 unit, Route: SUB-Q, BID-Before Meals, Dosing Weight 95.199, kg, Start date: 7:30:00, Duration: 30 day, Stop date: 01/16/15 16:30:00 Start Date: 12/18/14 Stop Date: 12/17/14 Status: Deleted Insulin regular 5 unit, 0.05 mL, Route: SUB-Q, Drug form: SOLN, ONCE, Dosing Weight 159.091, kg, Priority: STAT, Start date: 12/15/14 18:04:00, Stop date: 12/15/14 18:04:00 Notes: (Same as: Humulin R) Roll in palms of hands gently; Do not shake vigorou sly. "single patient use only"(Restricted to patients requiring a dose > 60 units) Stable for 28 days at room temperatureExpires in days from _ Date Start Date: 12/15/14 Stop Date: 12/15/14 Status: Completed Lantus 5 unit, Route: SUB-Q, ONCE, Dosing Weight 95.199, kg, Start date: 12/17/14 10:39 :00, Stop date: 12/17/14 10:39:00 Start Date: 12/17/14 Stop Date: 12/17/14 Status: Deleted Levemir FlexPen 5 unit, 0.05 mL, Route: SUB-Q, Drug form: INJ, ONCE, Start date: 12/17/14 11:30: 00, Stop date: 12/17/14 11:30:00 Notes: Same as LevemirDo not hold insulin without contacting prescriber "single patient use only" Start Date: 12/17/14 Stop Date: 12/17/14 Status: Completed Lovenox 30 mg, 0.3 mL, Route: SUB-Q, Drug form: INJ, [id number], Dosing Weight 159.091, kg , Start date: 12/15/14 21:00:00, Duration: 30 day, Stop date: 01/13/15 21:00:00 Notes: (Same as: Lovenox) Start Date: 12/15/14 Stop Date: 12/19/14 Status: Discontinued metroNIDAZOLE 500 mg, 100 mL, Route: IV, Drug form: INJ, [id number], Dosing Weight 159.091, kg, St art date: 12/15/14 21:00:00, Duration: 30 day, Stop date: 01/14/15 13:00:00 Notes: (Same as: Flagyl) Avoid alcohol. Start Date: 12/15/14 Stop Date: 12/19/14 Status: Discontinued NovoLIN R 20 unit, Route: SUB-Q, Drug form: SOLN, TID-Before Meals, Dosing Weight 95.199, kg, Start date: 12/16/14 16:30:00, Duration: 30 day, Stop date: 01/15/15 11:30:0 0 Start Date: 12/16/14 Stop Date: 12/16/14 Status: Deleted NovoLOG FlexPen 20 unit, 0.2 mL, Route: SUB-Q, Drug form: SOLN, TID-Before Meals, Start date: 16:30:00, Duration: 30 day, Stop date: 01/15/15 11:30:00 Notes: Roll in palms of hands gently; Do not shake vigorously. (Same as: NovoLO G)"single patient use only" Stable for 28 days at room temperature.Expires in _ ____ days from Date Start Date: 12/16/14 Stop Date: 12/16/14 Status: Discontinued NovoLOG Mix 70/30 FlexPen 10 unit, 0.1 mL, Route: SUB-Q, Drug form: INJ, QAM, Start date: 12/19/14 9:00:00 , Duration: 30 day, Stop date: 01/17/15 9:00:00 Notes: Roll in palms of hands gently; Do not shake vigorously. (Same as: NovoLO G Mix)"single patient use only" Stable for 14 days at room temperatureExpires i n days from Date Start Date: 12/19/14 Stop Date: 12/19/14 Status: Discontinued NovoLOG Mix 70/30 FlexPen 5 unit, 0.05 mL, Route: SUB-Q, Drug form: INJ, QPM, Start date: 12/19/14 17:00:0 0, Duration: 30 day, Stop date: 01/17/15 17:00:00 Notes: Roll in palms of hands gently; Do not shake vigorously. (Same as: NovoLO G Mix)"single patient use only" Stable for 14 days at room temperatureExpires i n days from Date Start Date: 12/19/14 Stop Date: 12/19/14 Status: Discontinued NovoLOG Mix 70/30 FlexPen 5 unit, 0.05 mL, Route: SUB-Q, Drug form: INJ, BID-Before Meals, Start date: 11/25 7:30:00, Duration: 30 day, Stop date: 01/16/15 16:30:00 Notes: Roll in palms of hands gently; Do not shake vigorously. (Same as: NovoLO G Mix)"single patient use only" Stable for 14 days at room temperatureExpires i n days from Date Start Date: 12/18/14 Stop Date: 12/19/14 Status: Discontinued permethrin topical 5% cream 1 appl, Route: TOP, ONCE, Drug form: CRM, Start date: 12/16/14 17:12:00, Stop da te: 12/16/14 17:12:00 Notes: (Same as: Elimite) Start Date: 12/16/14 Stop Date: 12/16/14 Status: Completed Protonix 40 mg, 1 tab, Route: PO, Drug form: ECTAB, Before Dinner, Dosing Weight 159.091, kg, Start date: 12/16/14 16:30:00, Duration: 30 day, Stop date: 01/14/15 16:30: 00 Notes: Tablet should not be chewed or crushed.(Same as: Protonix) Start Date: 12/16/14 Stop Date: 12/19/14 Status: Discontinued Readi-Cat 2 450 mL, Route: PO, Drug Form: SUSP, ONCALL, Start date: 12/16/14 19:00:00, Durat ion: 1 doses or times Notes: Same as Readi-Cat 2 Start Date: 12/16/14 Stop Date: 12/16/14 Status: Completed Renvela 1,600 mg, 2 tab, Route: PO, Drug form: TAB, TID-Meals, Dosing Weight 95.199, kg, Start date: 12/16/14 17:00:00, Duration: 30 day, Stop date: 01/15/15 12:00:00 Notes: Same as: Renvela Start Date: 12/16/14 Stop Date: 12/19/14 Status: Discontinued Renvela 1,600 mg, 2 tab, Route: PO, Drug form: TAB, PRN, PRN Other -See Comment, Start d ate: 12/16/14 13:29:00, Duration: 30 day, Stop date: 01/15/15 13:28:00 Notes: Same as: Renvela Start Date: 12/16/14 Stop Date: 12/19/14 Status: Discontinued Saline Flush 0.9% 10 mL, Route: IVP, Drug Form: INJ, Dosing Weight 159.091, kg, PRN, PRN Line Flus h, Start date: 12/15/14 15:47:00, Duration: 30 day, Stop date: 01/14/15 15:46:00 Notes: (Same as: BD Posiflush) Start Date: 12/15/14 Stop Date: 12/19/14 Status: Discontinued Tylenol 650 mg, 2 tab, Route: PO, Drug form: TAB, Q6H, Dosing Weight 95.199, kg, PRN Kermit n Score 1-3, Start date: 12/16/14 9:59:00, Duration: 30 day, Stop date: 01/15/15 9:58:00 Notes: Do not exceed 4 gm/day. (Same as: Tylenol) Start Date: 12/16/14 Stop Date: 12/19/14 Status: Discontinued vancomycin 1 gm, 200 mL, Route: IVPB, Drug form: INJ, Q-M-W-F, Dosing Weight 95.199, kg, St art date: 12/16/14 18:00:00, Duration: 30 day, Stop date: 01/13/15 18:00:00 Notes: TIME CRITICAL MEDICATION Start Date: 12/16/14 Stop Date: 12/19/14 Status: Discontinued Zofran 4 mg, 2 mL, Route: IVP, Drug form: INJ, Q4H, Dosing Weight 159.091, kg, PRN as n eeded for nausea/vomiting, Priority: Routine, Start date: 12/15/14 20:03:00, Dur ation: 30 day, Stop date: 01/14/15 20:02:00 Notes: (Same as: Anders) MEDICATION WASTE Product Size: 4 mgProduct Was clarissa: ___ mg Start Date: 12/15/14 Stop Date: 12/19/14 Status: Discontinued Results BLOOD BANK RESULTS 1 2 3 Most recent to oldest [Reference Range]: B POS *Unknown* (12/18/14 8:13 AM) ABO/Rh Negative (12/18/14 8:13 AM) Antibody Scrn ELECTROLYTES 1 2 3 Most recent to oldest [Reference Range]: 138 mEq/L (12/18/14 7:29 AM) 136 mEq/L (12/17/14 7:05 AM) 136 mEq/L (12/15/14 4:40 PM) Sodium Lvl [135-145 mEq/L] 4.3 mEq/L (12/18/14 7:29 AM) 4.4 mEq/L (12/17/14 7:05 AM) 4.4 mEq/L (12/15/14 4:40 PM) Potassium Lvl [3.5-5.1 mEq/L] 103 mEq/L (12/18/14 7:29 AM) 101 mEq/L (12/17/14 7:05 AM) 99 mEq/L (12/15/14 4:40 PM) Chloride Lvl [95-109 mEq/L] 27 mEq/L (12/18/14 7:29 AM) 26 mEq/L (12/17/14 7:05 AM) 24 mEq/L (12/15/14 4:40 PM) CO2 [24-32 mEq/L] 12.3 mEq/L (12/18/14 7:29 AM) 13.4 mEq/L (12/17/14 7:05 AM) 17.4 mEq/L (12/15/14 4:40 PM) AGAP [10.0-20.0 mEq/L] CHEM PANEL 1 2 3 Most recent to oldest [Reference Range]: 6.9 mg/dL *HI* (12/18/14 7:29 AM) 5.1 mg/dL *HI* (12/17/14 7:05 AM) 6.5 mg/dL *HI* (12/15/14 4:40 PM) Creatinine Lvl [0.5-1.4 mg/dL] 7 mL/min/1.73m2 1 *NA* (12/18/14 7:29 AM) 10 mL/min/1.73m2 2 *NA* (12/17/14 7:05 AM) 7 mL/min/1.73m2 3 *NA* (12/15/14 4:40 PM) eGFR 38 mg/dL *HI* (12/18/14 7:29 AM) 27 mg/dL *HI* (12/17/14 7:05 AM) 45 mg/dL *HI* (12/15/14 4:40 PM) BUN [7-22 mg/dL] 7 (12/15/14 4:40 PM) B/C Ratio [6-25] 174 mg/dL *HI* (12/18/14 7:29 AM) 171 mg/dL *HI* (12/17/14 7:05 AM) 434 mg/dL 4 *CRIT* (12/15/14 4:40 PM) Glucose Lvl [70-99 mg/dL] 6.6 g/dL (12/15/14 4:40 PM) Total Protein [6.4-8.4 g/dL] 2.3 g/dL *LOW* (12/15/14 4:40 PM) Albumin Lvl [3.5-5.0 g/dL] 4.3 g/dL *HI* (12/15/14 4:40 PM) Globulin [2.0-4.0 g/dL] 0.5 *LOW* (12/15/14 4:40 PM) A/G Ratio [0.7-1.6] 8.1 mg/dL *LOW* (12/18/14 7:29 AM) 8.3 mg/dL *LOW* (12/17/14 7:05 AM) 8.4 mg/dL *LOW* (12/15/14 4:40 PM) Calcium Lvl [8.5-10.5 mg/dL] 4.5 mg/dL (12/17/14 7:05 AM) Phosphorus [2.5-4.5 mg/dL] 1.8 mg/dL (12/17/14 7:05 AM) Magnesium Lvl [1.8-2.4 mg/dL] 44 unit/L (12/15/14 4:40 PM) ALT [0-65 unit/L] 14 unit/L (12/15/14 4:40 PM) AST [0-37 unit/L] 136 unit/L (12/15/14 4:40 PM) Alk Phos [39-136 unit/L] 0.5 mg/dL (12/15/14 4:40 PM) Bili Total [0.2-1.3 mg/dL] 1.0 mMol/L (12/17/14 7:05 AM) 2.3 mMol/L *HI* (12/15/14 4:40 PM) Lactic Acid Lvl [0.5-2.2 mMol/L] 1Result Comment: The eGFR is calculated using [...] be mul tiplied by the estimated BMI. 4Result Comment: Critical Result(s) called to MARIA ESTHER ABARCA at 12/15/2014 17:19 by BP. Read back OK. ANEMIA STUDY 1 2 3 Most recent to oldest [Reference Range]: 90 ug/dl (12/17/14 7:05 AM) Iron [30-160 ug/dl] 908 ng/mL *HI* (12/17/14 7:05 AM) Ferritin Lvl [5-204 ng/mL] 25 % (12/17/14 7:05 AM) % Satur Fe [12-57 %] 272 ug/dl (12/17/14 7:05 AM) UIBC [110-370 ug/dl] 397 pg/mL (12/18/14 7:29 AM) Vitamin B12 Lvl [254-1320 pg/mL] 18.3 ng/mL (12/17/14 7:05 AM) Folate Lvl [>=3.0 ng/mL] 362 ug/dl (12/17/14 7:05 AM) TIBC [228-428 ug/dl] IMMUNOLOGY 1 2 3 Most recent to oldest [Reference Range]: 118.0 mg/L *HI* (12/15/14 4:40 PM) CRP [<=2.9 mg/L] Negative *NA* (12/16/14 10:29 AM) Hep Bs Ag [Negative] Negative *NA* (12/16/14 10:29 AM) Hep C Ab 53.5 IU/mL (12/16/14 10:29 AM) IgE Lvl [10.0-100.0 IU/mL] HEMATOLOGY 1 2 3 Most recent to oldest [Reference Range]: 5.7 K/CMM (12/18/14 7:29 AM) 6.0 K/CMM (12/17/14 7:05 AM) 9.1 K/CMM (12/15/14 4:40 PM) WBC [3.7-10.4 K/CMM] 2.59 M/CMM *LOW* (12/18/14 7:29 AM) 2.76 M/CMM *LOW* (12/17/14 7:05 AM) 2.95 M/CMM *LOW* (12/15/14 4:40 PM) RBC [4.20-5.40 M/CMM] 8.2 g/dL *LOW* (12/18/14 7:29 AM) 8.7 g/dL *LOW* (12/17/14 7:05 AM) 9.2 g/dL *LOW* (12/15/14 4:40 PM) Hgb [12.0-16.0 g/dL] 25.3 % *LOW* (12/18/14 7:29 AM) 26.4 % *LOW* (12/17/14 7:05 AM) 28.8 % *LOW* (12/15/14 4:40 PM) Hct [36.0-48.0 %] 97.6 fL (12/18/14 7:29 AM) 95.7 fL (12/17/14 7:05 AM) 97.4 fL (12/15/14 4:40 PM) MCV [80.0-98.0 fL] 31.6 pg *HI* (12/18/14 7:29 AM) 31.5 pg *HI* (12/17/14 7:05 AM) 31.0 pg (12/15/14 4:40 PM) MCH [27.0-31.0 pg] 32.4 g/dL (12/18/14 7:29 AM) 32.9 g/dL (12/17/14 7:05 AM) 31.8 g/dL *LOW* (12/15/14 4:40 PM) MCHC [32.0-36.0 g/dL] 16.1 % *HI* (12/18/14 7:29 AM) 15.8 % *HI* (12/17/14 7:05 AM) 15.7 % *HI* (12/15/14 4:40 PM) RDW [11.5-14.5 %] 192 K/CMM (12/18/14 7:29 AM) 210 K/CMM (12/17/14 7:05 AM) 200 K/CMM (12/15/14 4:40 PM) Platelet [133-450 K/CMM] 7.9 fL (12/18/14 7:29 AM) 8.7 fL (12/17/14 7:05 AM) 8.6 fL (12/15/14 4:40 PM) MPV [7.4-10.4 fL] 67.9 % (12/18/14:29 AM) 71.0 % (12/17/14 7:05 AM) 89.5 % *HI* (12/15/14 4:40 PM) Segs [45.0-75.0 %] 0.0 % (12/17/14 7:05 AM) Bands [0.0-11.0 %] 11.9 % *LOW* (12/18/14 7:29 AM) 10.0 % *LOW* (12/17/14 7:05 AM) 6.8 % *LOW* (12/15/14 4:40 PM) Lymphocytes [20.0-40.0 %] 0.0 % (12/17/14 7:05 AM) Atypical Lymphs [<=0.0 %] 6.8 % (12/18/14 7:29 AM) 4.0 % (12/17/14 7:05 AM) 2.3 % (12/15/14 4:40 PM) Monocytes [2.0-12.0 %] 13.1 % *HI* (12/18/14 7:29 AM) 14.0 % *HI* (12/17/14 7:05 AM) 1.1 % (12/15/14 4:40 PM) Eosinophils [0.0-4.0 %] 0.3 % (12/18/14 7:29 AM) 1.0 % (12/17/14 7:05 AM) 0.3 % (12/15/14 4:40 PM) Basophils [0.0-1.0 %] 3.9 K/CMM (12/18/14 7:29 AM) 4.3 K/CMM (12/17/14 7:05 AM) 8.2 K/CMM *HI* (12/15/14 4:40 PM) Segs-Bands # [1.5-8.1 K/CMM] 0.7 K/CMM *LOW* (12/18/14 7:29 AM) 0.6 K/CMM *LOW* (12/17/14 7:05 AM) 0.6 K/CMM *LOW* (12/15/14 4:40 PM) Lymphocytes # [1.0-5.5 K/CMM] 0.4 K/CMM (12/18/14 7:29 AM) 0.2 K/CMM (12/17/14 7:05 AM) 0.2 K/CMM (12/15/14 4:40 PM) Monocytes # [0.0-0.8 K/CMM] 0.8 K/CMM *HI* (12/18/14 7:29 AM) 0.8 K/CMM *HI* (12/17/14 7:05 AM) 0.1 K/CMM (12/15/14 4:40 PM) Eosinophils # [0.0-0.5 K/CMM] 0.0 K/CMM (12/18/14 7:29 AM) 0.1 K/CMM (12/17/14 7:05 AM) 0.0 K/CMM (12/15/14 4:40 PM) Basophils # [0.0-0.2 K/CMM] 1 /100WB *NA* (12/17/14 7:05 AM) NRBC Moderate *ABN* (12/17/14 7:05 AM) Polychrom [None Seen] Normal (12/17/14 7:05 AM) Plt Morph 90 mm/hr *HI* (12/15/14 4:40 PM) Sed Rate [0-20 mm/hr] Immunizations Vaccine Date Refusal Reason pneumococcal 23-valent [...] Plan Extracted from: Title: Clinical Document Author: Tish Delaney MD Date: 12/18/14 The patient reports itching and lower extremity pain. No fevers, chills, nausea, or vomiting. No diarrhea. VitalsTmp(F)Tmp(C)[id number] 12/18 13:[id number]---[id number]------ 12/18 12:[id number]---[id number]--------- 12/18 05:4097.936.97xqqq345/70---[id number]------ 12/17 19:4998.536.64xkgk813/84---[id number]------ 12/17 15:2398.436.62obsx118/72---[id number]------ 24 Hr Tmax: 98.5F (36.94c) at 12/17 19:49Vital Signs are the last 5 in the past 48 hours. 24 Hr Tmin: 97.3F (36.28c) at 12/18 13:15Weights are the last 5 in 60 days, plus initial. General: alert and oriented to person, place, and time. NAD. + obesity. HEENT: + legal blindness. mucus membranes moist. No oral lesions. Neck: supple. no thyromegaly. CV: normal S1S2. No S3. no m/g/r. RR: lungs ctab. no wheezing or ronchi. chest expansion is symmetric. GI: ntnd. normoactive bowel sounds. no hsm. Ext: lower extremity ulcers with chronic venous stasis and erythema,edema is improved. + papular lesions of bilateral arms. Neuro: strength 5/5. sensation full to light touch bilaterally. Psych: affect is appropriate. insight is appropriate. Lymph: no neck or groin LAD. (no surgical procedures documented) I&ORecordInOutBal 12/723hr Tot [id number] [id number] 12/623hr Tot 6549 010 8374 24hr Labs 12/18 1256 Glucose LCT148 H 12/18 0813 ABO/RhB POS Antibody ScrnNegative 12/18 07 Glucose Bjq499 H BUN38 H Creatinine Lvl6.9 H Sodium Nuc876 Potassium Lvl4.3 Chloride Wwh780 CO227 AGAP12.3 Calcium Lvl8.1 L eGFR7 Vitamin B12 Kfy516 WBC5.7 RBC2.59 L Hgb8.2 L Hct25.3 L MCV97.6 MCH31.6 H MCHC32.4 RDW16.1 H Nxzuaias235 MPV7.9 Segs67.9 Monocytes6.8 Mjegccwkooh85.9 L Wregldvxjlo28.1 H Basophils0.3 Segs-Bands #3.9 Lymphocytes #0.7 L Monocytes #0.4 Eosinophils #0.8 H Basophils #0.0 12/17 205 Glucose OPX202 H 12/17 1650 Glucose ZPI935 H Scheduled Meds (11): amLODIPine 10 mg PO Daily [Last Rescheduled Dt/Tm: 12/16/14 13:27:00] [eMAR Schedule: (12/18/14) 09:00] [Future Dose: 12/19/14 09:00] cefepime + Sodium Chloride 0.9% IV 100 mL 1 gm IVPB MHMO31A 25 ml/hr [Last Rescheduled Dt/Tm: 12/16/14 20:02:00] [eMAR Schedule: (12/18/14) 20:02] [Future Dose: 12/19/14 20:02] cloNIDine (cloNIDine 0.2 mg oral tablet) 0.1 mg PO TID [eMAR Schedule: (12/18/14) 13:00, 17:00] enoxaparin (Lovenox) 30 mg SUB-Q ddfcT89H [Last Rescheduled Dt/Tm: 12/15/14 21:00:00] [eMAR Schedule: (12/18/14) 21:00] [Future Dose: 12/19/14 21:00] epoetin evette (Epogen (ESRD)) 8,000 unit IV Q-M-W-F [eMAR Schedule: (12/18/14) 17:00] [Future Dose: 12/21/14 17:00] gabapentin (gabapentin 100 mg oral capsule) 100 mg PO TID [Last Rescheduled Dt/Tm: 12/16/14 13:28:00] [eMAR Schedule: (12/18/14) 09:00, 13:00, 17:00] insulin aspart-insulin aspart protamine (NovoLOG Mix 70/30 FlexPen) 5 unit SUB-Q BID-Before Meals [eMAR Schedule: (12/18/14) 07:30, 16:30] metroNIDAZOLE 500 mg IV ABXQ8H 200 ml/hr [eMAR Schedule: (12/18/14) 05:00, 13:00, 21:00] pantoprazole (Protonix) 40 mg PO Before Dinner [Last Rescheduled Dt/Tm: 12/16/14 16:30:00] [eMAR Schedule: (12/18/14) 16:30] [Future Dose: 12/19/14 16:30] sevelamer (Renvela) 1,600 mg PO TID-Meals [eMAR Schedule: (12/18/14) 08:00, 12:00, 17:00] vancomycin 1 gm IVPB Q-M-W-F 200 ml/hr [Last Rescheduled Dt/Tm: 12/16/14 18:00:00] [eMAR Schedule: (12/18/14) 18:00] [Future Dose: 12/21/14 18:00] Unscheduled Meds: None PRN Meds (21): Dextrose 50% in Water IV (Dextrose 50% Syringe) 12.5 gm IVP PRN Dextrose 50% in Water IV (Dextrose 50% Syringe) 25 gm IVP PRN acetaminophen (Tylenol) 650 mg PO Q6H bisacodyl (Dulcolax Laxative) 10 mg AR Daily diphenhydrAMINE (Benadryl) 50 mg PO Q6H docusate (Colace 100 mg oral capsule) 100 mg PO BID glucagon 1 mg IM PRN hydrALAZINE 10 mg IVP Q4H hydrOXYzine 20 mg PO QID insulin aspart 2 unit SUB-Q TID-Before Meals insulin aspart 4 unit SUB-Q TID-Before Meals insulin aspart 6 unit SUB-Q TID-Before Meals insulin aspart 8 unit SUB-Q TID-Before Meals insulin aspart 10 unit SUB-Q TID-Before Meals insulin aspart 1 unit SUB-Q Bedtime insulin aspart 2 unit SUB-Q Bedtime insulin aspart 3 unit SUB-Q Bedtime insulin aspart 4 unit SUB-Q Bedtime ondansetron (Zofran) 4 mg IVP Q4H sevelamer (Renvela) 1,600 mg PO PRN sodium chloride (Saline Flush 0.9%) 10 mL IVP PRN One Time Meds (2): (not done) insulin detemir (Levemir FlexPen) 5 unit SUB-Q ONCE (Deleted) insulin glargine (Lantus) 5 unit SUB-Q ONCE Continuous Infusions: None No results Assessment and Plan: 1. Lower extremity cellulitis/chronic lymphedema. Continue wound care and antibiotics. I discussed the case with Dr. Browne today. We anticipate final culture results tomorrow. Will plan to discharge home tomorrow once results are available. 2. ESRD. Continue hemodialysis MWF. 3. Diabetes type 2. Blood glucose levels are uncontrolled. Continue insulin as written. 4. Hyperphosphatemia. Controlled. Continue sevelamer. 5. HTN. BP is controlled. Continue home medications. 6. Anemia of CKD. Hemoglobin is decreased this morning. Continue epogen. 7. Obesity. Will continue to encourage weight loss. 8. Deconditioning. Continue PT. Will refer to lymphedema clinic and derm upon discharge.
--- OUTSIDE RECORDS SUMMARY | 2018-03-16 21:36 | XMS REPORT | Summary of Care ---
Author Author [facility] Organization [facility] Address Unknown Phone Unavailable Encounter [facility]) [id number] Date(s): 10/27/16 - 10/27/16 [facility] [address] [place] [address]- Discharge Diagnosis: Laceration without foreign body, right lower leg, initial e ncounter Discharge Disposition: Home or Self Care Attending Physician: Son, Handy Frias DO Vital Signs 1 2 3 Most recent to oldest [Reference Range]: 98 DegF (10/27/16 8:40 AM) 98.1 DegF (10/27/16 5:48 AM) Temperature Oral [96.4-99.1 DegF] 142/72 mmHg *HI* (10/27/16 8:40 AM) 128/75 mmHg (10/27/16 7:30 AM) 133/75 mmHg (10/27/16 6:39 AM) Blood Pressure [90-140/60-90 mmHg] 20 BRMIN (10/27/16 8:40 AM) 22 BRMIN *HI* (10/27/16 7:30 AM) 20 BRMIN (10/27/16 6:39 AM) Respiratory Rate [14-20 BRMIN] 96 bpm (10/27/16 8:40 AM) 105 bpm *HI* (10/27/16 7:30 AM) 103 bpm *HI* (10/27/16 6:39 AM) Peripheral Pulse Rate [60-100 bpm] 120.455 kg (10/27/16 5:48 AM) Weight Problem List Condition Effective Dates Status Health Status Informant Abnormal gait1 07/18/13 Active Alkaline phosphatase 10/30/13 Active raised2 Benign hypertension3 Active Blind(Confirmed) Active Body mass index 40+ Active - severely obese4 Cellulitis(Confirmed Active ) Chronic diastolic Active heart failure5 Constipation6 07/18/13 Active Dialysis Active care(Confirmed) Dialysis Active catheter(Confirmed) Disorder of vision7 11/03/13 Active DM - Diabetes Active mellitus(Confirmed) Electrocardiogram Active abnormal8 End stage renal 07/18/13 Active disease9 ESRD - End stage Active renal disease(Confirmed) HTN - Active Hypertension(Confirm ed) Hyperglycemia(Confir Active med) [id number] 10/23/13 Active Morbid Active obesity(Confirmed) Peripheral edema11 07/18/13 Active Peripheral venous 10/23/13 Active aieokucbkmdqa97 Retinal rmyzgiol02 08/07/13 Active Type II diabetes 07/18/13 Active mellitus [id number] 1Data migrated from [employer] on 10/13/14. [...] on 09/11/14. Originally documented as LISINOPRIL. Medications clindamycin 300 mg oral capsule 300 mg=1 cap, PO, Q6H, X 10 day, # 40 cap, 0 Refill(s) Start Date: 10/27/16 Stop Date: 11/06/16 Status: Ordered lidocaine 1% 1 ml, Route: SUB-Q, Drug Form: INJ, Dosing Weight 120.455, kg, ONCE, STAT, Start date: 10/27/16 6:19:00 CDT, Stop date: 10/27/16 6:19:00 CDT Notes: Preservative free. (Same as: Xylocaine MPF) Start Date: 10/27/16 Stop Date: 10/27/16 Status: Ordered lidocaine-epi 1%-1:016937 1 mL, Route: SUB-Q, Dosing Weight 120.455, kg, ONCE, STAT, Start date: 10/27/16 6:05:00 CDT, Stop date: 10/27/16 6:05:00 CDT Start Date: 10/27/16 Stop Date: 10/27/16 Status: Discontinued Tylenol 1,000 mg, Route: PO, Drug form: TAB, ONCE, Dosing Weight 120.455, kg, Priority: STAT, Start date: 10/27/16 6:04:00 CDT, Stop date: 10/27/16 6:04:00 CDT Start Date: 10/27/16 Stop Date: 10/27/16 Status: Completed Results No data available for this section Immunizations Given and Recorded Vaccine Date Status Refusal Reason diphtheria/pertussis, acel/tetanus adult 10/27/16 Given pneumococcal 23-valent vaccine 11/14/12 Given tetanus-diphtheria toxoids 01/23/13 Given Procedures Procedure Date Related Diagnosis Body Site Arteriovenous fistula operation1 Cholecystectomy 1lt. lower arm Social History Social History Type Response Smoking Status Never smoker; Ready to change: No; Concerns about tobacco use in household: No; Exposure to Tobacco Smoke None; Cigarette Smoking Last 365 Days No; Reg Smoking Cessation Counseling No Assessment and Plan No data available for this section
--- OUTSIDE RECORDS SUMMARY | 2018-03-16 21:36 | XMS REPORT | Summary of Care ---
Author Organization Unknown Address Unknown Phone Unavailable Encounter [facility]) [id number] Date(s): 11/18/14 - 11/18/14 [facility] [address] [place] [address]- Discharge Diagnosis: Allergic reaction Discharge Disposition: Home Physician Attending: Rad Paige MD Vital Signs 1 2 3 Most recent to oldest [Reference Range]: 167.64 cm (11/18/14 10:46 AM) Height 98.4 DegF (11/18/14 1:00 PM) 98.3 DegF (11/18/14 12:18 PM) 98.4 DegF (11/18/14 11:34 AM) Temperature Oral [96.4-99.1 DegF] 170/77 mmHg *HI* (11/18/14 1:00 PM) 160/70 mmHg *HI* (11/18/14 12:18 PM) 177/65 mmHg *HI* (11/18/14 11:34 AM) Blood Pressure [90-140/60-90 mmHg] 18 BRMIN (11/18/14 1:00 PM) 19 BRMIN (11/18/14 12:18 PM) 18 BRMIN (11/18/14 11:34 AM) Respiratory Rate [14-20 BRMIN] 93 bpm (11/18/14 1:00 PM) 94 bpm (11/18/14 12:18 PM) 96 bpm (11/18/14 11:34 AM) Peripheral Pulse Rate [60-100 bpm] 113.636 kg (11/18/14 10:46 AM) Weight 40.44 m2 (11/18/14 10:46 AM) Body Mass Index Problem List Condition Effective [...] - Active Hypertension(Confirm ed) Hyperglycemia(Confir Active med) Zwvjzqdvevsndp88 10/23/13 Active Morbid Active obesity(Confirmed) Peripheral edema11 07/18/13 Active Peripheral venous 10/23/13 Active eaibkdbictlvj21 Retinal vcfgdmno43 08/07/13 Active Type II diabetes 07/18/13 Active mellitus [id number] 1Data migrated from [employer] on 10/13/14. [...] on 09/11/14. Originally documented as LISINOPRIL. Medications Benadryl 25 mg, Route: PO, Drug form: CAP, ONCE, Dosing Weight 113.636, kg, Priority: STA T, Start date: 11/18/14 11:33:00, Stop date: 11/18/14 11:33:00 Start Date: 11/18/14 Stop Date: 11/18/14 Status: Discontinued diphenhydrAMINE 25 mg, Route: PO, Drug form: CAP, ONCE, Dosing Weight 113.636, kg, Priority: STA T, Start date: 11/18/14 11:26:00, Stop date: 11/18/14 11:26:00 Start Date: 11/18/14 Stop Date: 11/18/14 Status: Completed famotidine 20 mg oral tablet 20 mg, 1 tab, Route: PO, ONCE, Dosing Weight 113.636, kg, Priority: STAT, Start date: 11/18/14 11:26:00, Stop date: 11/18/14 11:26:00 Start Date: 11/18/14 Stop Date: 11/18/14 Status: Completed Pepcid 20 mg oral tablet 20 mg, 1 tab, Route: PO, ONCE, Dosing Weight 113.636, kg, Start date: 11/18/14 1 1:33:00, Stop date: 11/18/14 11:33:00 Start Date: 11/18/14 Stop Date: 11/18/14 Status: Discontinued predniSONE 60 mg, Route: PO, Drug form: TAB, ONCE, Dosing Weight 113.636, kg, Priority: STA T, Start date: 11/18/14 11:33:00, Stop date: 11/18/14 11:33:00 Start Date: 11/18/14 Stop Date: 11/18/14 Status: Discontinued predniSONE 60 mg, Route: PO, Drug form: TAB, ONCE, Dosing Weight 113.636, kg, Priority: STA T, Start date: 11/18/14 11:27:00, Stop date: 11/18/14 11:27:00 Start Date: 11/18/14 Stop Date: 11/18/14 Status: Completed predniSONE 20 mg oral tablet 60 mg=3 tab, PO, Daily, Take 3 tablets for 60 mg dose, X 5 day, # 15 tab, 0 Refi ll(s) Special Instructions: Take 3 tablets for 60 mg dose Start Date: 11/18/14 Stop Date: 11/23/14 Status: Ordered Results No data available for this section [...]
--- OUTSIDE RECORDS SUMMARY | 2018-03-16 21:36 | XMS REPORT | Summary of Care ---
Author Organization Unknown Address Unknown Phone Unavailable Encounter [facility]) [id number] Date(s): 09/09/14 - 09/09/14 [facility] [address] [place] [address]- Discharge Diagnosis: Abdominal pain Discharge Diagnosis: UTI (urinary tract infection) Discharge Disposition: Home Physician Attending: Cuong Garsia MD Vital Signs 1 2 3 Most recent to oldest [Reference Range]: 160.02 cm (09/09/14 12:14 PM) Height 97.9 DegF (09/09/14 4:01 PM) 97.6 DegF (09/09/14 1:28 PM) 97.6 DegF (09/09/14 12:14 PM) Temperature Oral [96.4-99.1 DegF] 146/79 mmHg *HI* (09/09/14 4:01 PM) 161/78 mmHg *HI* (09/09/14 1:28 PM) 170/100 mmHg *HI* (09/09/14 12:14 PM) Blood Pressure [90-140/60-90 mmHg] 18 BRMIN (09/09/14 4:01 PM) 18 BRMIN (09/09/14 1:28 PM) 18 BRMIN (09/09/14 12:14 PM) Respiratory Rate [14-20 BRMIN] 87 bpm (09/09/14 4:01 PM) 88 bpm (09/09/14 1:28 PM) 93 bpm (09/09/14 12:14 PM) Peripheral Pulse Rate [60-100 bpm] 117 kg (09/09/14 12:14 PM) Weight 45.69 m2 (09/09/14 12:14 PM) Body Mass Index Problem List Condition Effective Dates Status Health Status Informant Cellulitis(Confirmed Active ) Dialysis Active care(Confirmed) Dialysis Active catheter(Confirmed) DM - Diabetes Active mellitus(Confirmed) ESRD - End stage Active renal disease(Confirmed) HTN - Active Hypertension(Confirm ed) Hyperglycemia(Confir Active med) Morbid Active obesity(Confirmed) Allergies, Adverse Reactions, Alerts Substance Reaction Severity Status lisinopril1 Active 1Data migrated from [employer] on 09/11/14. Originally documented as LISINOPRIL. Medications Cipro 500 mg oral tablet 500 mg=1 tab, PO, Q12H, X 7 day, # 14 tab, 0 Refill(s) Start Date: 09/09/14 Stop Date: 09/16/14 Status: Ordered ondansetron 4 mg, 2 mL, Route: IVP, Drug form: INJ, ONCE, Dosing Weight 117, kg, Priority: S TAT, Start date: 09/09/14 13:14:00, Stop date: 09/09/14 13:14:00 Notes: (Same as: Georginaan) MEDICATION WASTE Product Size: 4 mgProduct Was clarissa: ___ mg Start Date: 09/09/14 Stop Date: 09/09/14 Status: Completed Saline Flush 0.9% 10 mL, Route: IVP, Drug Form: INJ, Dosing Weight 117, kg, PRN, PRN Line Flush, S tart date: 09/09/14 13:14:00, Duration: 30 day, Stop date: 10/09/14 13:13:00 Notes: Same as: BD Posiflush Sterile Start Date: 09/09/14 Stop Date: 09/09/14 Status: Discontinued Results ELECTROLYTES Most recent to 1 oldest [Reference Range]: Sodium Lvl [135-145 138 mEq/L mEq/L] (09/09/14 1:29 PM) Potassium Lvl 4.2 mEq/L [3.5-5.1 mEq/L] (09/09/14 1:29 PM) Chloride Lvl [95-109 101 mEq/L mEq/L] (09/09/14 1:29 PM) CO2 [24-32 mEq/L] 22 mEq/L *LOW* (09/09/14 1:29 PM) AGAP [10.0-20.0 19.2 mEq/L mEq/L] (09/09/14 1:29 PM) CHEM PANEL Most recent to 1 oldest [Reference Range]: Creatinine Lvl 11.5 mg/dL [0.5-1.4 mg/dL] *HI* (09/09/14 1:29 PM) eGFR 4 mL/min/1.73m2 1 *NA* (09/09/14 1:29 PM) BUN [7-22 mg/dL] 81 mg/dL *HI* (09/09/14 1:29 PM) B/C Ratio [6-25] 7 (09/09/14 1:29 PM) Glucose Lvl [70-99 202 mg/dL 2 mg/dL] *HI* (09/09/14 1:29 PM) Total Protein 7.5 g/dL [6.4-8.4 g/dL] (09/09/14 1:29 PM) Albumin Lvl [3.5-5.0 3.0 g/dL g/dL] *LOW* (09/09/14 1: PM) Globulin [2.0-4.0 4.5 g/dL g/dL] *HI* (09/09/14 1:29 PM) A/G Ratio [0.7-1.6] 0.7 (09/09/14 1:29 PM) Calcium Lvl 8.5 mg/dL [8.5-10.5 mg/dL] (09/09/14 1:29 PM) ALT [0-65 unit/L] 14 unit/L (09/09/14 1:29 PM) AST [0-37 unit/L] 9 unit/L (09/09/14 1:29 PM) Alk Phos [39-136 107 unit/L unit/L] (09/09/14 1:29 PM) Bili Total [0.2-1.3 0.2 mg/dL mg/dL] (09/09/14 1:29 PM) Lipase Lvl [73-393 313 unit/L unit/L] (09/09/14 1:29 PM) 1Result Comment: The eGFR is calculated using [...] be mul tiplied by the estimated BMI. 2Interpretive Data: Adult reference range values reflect the clinical guidelines of the [place] [employer]. CARDIAC ENZYMES Most recent to 1 oldest [Reference Range]: Total CK [12-191 99 unit/L unit/L] (09/09/14 1:29 PM) CK MB [0.5-3.6 2.4 ng/mL ng/mL] (09/09/14 1:29 PM) CK MB Index 2.4 [0.0-2.5] (09/09/14 1:29 PM) Troponin-I <0.02 ng/mL [0.00-0.40 ng/mL] (09/09/14 1:29 PM) URINE AND STOOL Most recent to 1 oldest [Reference Range]: UA Turbidity [Clear] Cloudy *ABN* (09/09/14 1:57 PM) UA Color STRAW *NA* (09/09/14 1:57 PM) UA pH [5.0-8.0] 6.0 (09/09/14 1:57 PM) UA Spec Grav 1.020 [<=1.030] (09/09/14 1:57 PM) UA Glucose [Negative 500 mg/dL mg/dL] *ABN* (09/09/14 1:57 PM) UA Blood [Negative] Moderate *ABN* (09/09/14 1:57 PM) UA Ketones Negative [Negative] *NA* (09/09/14 1:57 PM) UA Protein [Negative >=300 mg/dL mg/dL] *ABN* (09/09/14 1:57 PM) UA Urobilinogen 0.2 EU/dL [0.1-1.0 EU/dL] (09/09/14 1:57 PM) UA Bili [Negative] Negative *NA* (09/09/14 1:57 PM) UA Leuk Est Small [Negative] *ABN* (09/09/14 1:57 PM) UA Nitrite Negative [Negative] (09/09/14 1:57 PM) UA WBC [None Seen 21-50 /HPF /HPF] *ABN* (09/09/14 1:57 PM) UA RBC [0-2 /HPF] 3-5 /HPF *ABN* (09/09/14 1:57 PM) UA Bacteria [None Occasional /HPF Seen /HPF] (09/09/14 1:57 PM) UA Sq Epi [Few /LPF] Moderate /LPF *ABN* (09/09/14 1:57 PM) UA Mucus [None Seen Few /LPF /LPF] (09/09/14 1:57 PM) UA Hyph Yeast Few /HPF *ABN* (09/09/14 1:57 PM) HEMATOLOGY Most recent to 1 oldest [Reference Range]: WBC [3.7-10.4 K/CMM] 7.6 K/CMM (09/09/14 1:29 PM) RBC [4.20-5.40 3.28 M/CMM M/CMM] *LOW* (09/09/14 1:29 PM) Hgb [12.0-16.0 g/dL] 10.9 g/dL *LOW* (09/09/14 1:29 PM) Hct [36.0-48.0 %] 31.9 % *LOW* (09/09/14 1:29 PM) MCV [80.0-98.0 fL] 97.4 fL (09/09/14 1:29 PM) MCH [27.0-31.0 pg] 33.2 pg *HI* (09/09/14 1:29 PM) MCHC [32.0-36.0 34.1 g/dL g/dL] (09/09/14 1:29 PM) RDW [11.5-14.5 %] 16.0 % *HI* (09/09/14 1:29 PM) Platelet [133-450 208 K/CMM K/CMM] (09/09/14 1:29 PM) MPV [7.4-10.4 fL] 8.5 fL (09/09/14 1:29 PM) Segs [45.0-75.0 %] 74.9 % (09/09/14 1:29 PM) Lymphocytes 18.4 % [20.0-40.0 %] *LOW* (09/09/14 1:29 PM) Monocytes [2.0-12.0 3.9 % %] (09/09/14 1:29 PM) Eosinophils [0.0-4.0 2.5 % %] (09/09/14 1:29 PM) Basophils [0.0-1.0 0.3 % %] (09/09/14 1:29 PM) Segs-Bands # 5.7 K/CMM [1.5-8.1 K/CMM] (09/09/14 1:29 PM) Lymphocytes # 1.4 K/CMM [1.0-5.5 K/CMM] (09/09/14 1:29 PM) Monocytes # [0.0-0.8 0.3 K/CMM K/CMM] (09/09/14 1:29 PM) Eosinophils # 0.2 K/CMM [0.0-0.5 K/CMM] (09/09/14 1:29 PM) Basophils # [0.0-0.2 0.0 K/CMM K/CMM] (09/09/14 1:29 PM) Immunizations Vaccine Date Refusal Reason pneumococcal 23-valent vaccine 11/14/12 tetanus-diphtheria toxoids 01/23/13 Procedures Procedure Date Related Diagnosis Body Site Arteriovenous fistula operation1 Cholecystectomy 1lt. lower arm Social History Social History Type Response Smoking Status Never smoker; Exposure to Tobacco Smoke None; Cigarette Smoking Last 365 Days No; Reg Smoking Cessation Counseling No Assessment and Plan No data available for this section
--- OUTSIDE RECORDS SUMMARY | 2018-03-16 21:36 | XMS REPORT | Summary of Care ---
Author Organization Unknown Address Unknown Phone Unavailable Encounter ELIA Villela(DULCE) [id number] Date(s): 11/10/14 - 11/10/14 [facility] [address] [place] [address]- Discharge Diagnosis: Nausea & vomiting Discharge Diagnosis: Abdominal pain Discharge Diagnosis: Acute diarrhea Discharge Disposition: Home Physician Attending: Catherine Howard MD Vital Signs 1 2 3 Most recent to oldest [Reference Range]: 160.02 cm (11/10/14 10:46 AM) Height 97.9 DegF (11/10/14 10:46 AM) Temperature Oral [96.4-99.1 DegF] 119/53 mmHg (11/10/14 2:05 PM) 189/89 mmHg *HI* (11/10/14 12:22 PM) Blood Pressure [90-140/60-90 mmHg] 209 mmHg *HI* (11/10/14 11:45 AM) Systolic Blood Pressure [90-140 mmHg] 91 mmHg *HI* (11/10/14 11:45 AM) Diastolic Blood Pressure [60-90 mmHg] 20 BRMIN (11/10/14 2:05 PM) 20 BRMIN (11/10/14 12:22 PM) 20 BRMIN (11/10/14 11:45 AM) Respiratory Rate [14-20 BRMIN] 98 bpm (11/10/14 11:45 AM) 99 bpm (11/10/14 10:46 AM) Peripheral Pulse Rate [60-100 bpm] 137 kg (11/10/14 10:46 AM) Weight 53.5 m2 (11/10/14 10:46 AM) Body Mass Index Problem List [...] - Active Hypertension(Confirm ed) Hyperglycemia(Confir Active med) Udqnkpaiuobsug80 10/23/13 Active Morbid Active obesity(Confirmed) Peripheral edema11 07/18/13 Active Peripheral venous 10/23/13 Active spdftwjjvutdg94 Retinal edjapbxu55 08/07/13 Active Type II diabetes 07/18/13 Active mellitus btuhoodxasod26 1Data migrated from [employer] on 10/13/14. [...] Severity Status lisinopril1 Active 1Data migrated from [employer] on 09/11/14. Originally documented as LISINOPRIL. Medications cloNIDine 0.2 mg oral tablet 0.2 mg, 1 tab, Route: PO, Drug form: TAB, ONCE, Dosing Weight 137, kg, Priority: STAT, Start date: 11/10/14 11:49:00, Stop date: 11/10/14 11:49:00 Notes: (Same As: Catapres) Start Date: 11/10/14 Stop Date: 11/10/14 Status: Completed morphine Sulfate 4 mg, 1 mL, Route: IVP, Drug form: INJ, ONCE, Dosing Weight 137, kg, Priority: S TAT, Start date: 11/10/14 11:49:00, Stop date: 11/10/14 11:49:00 Notes: (Same as:MORPhine Sulfate) Start Date: 11/10/14 Stop Date: 11/10/14 Status: Completed Omnipaque 300 100 mL, Route: IVP, Drug Form: SOLN, ONCALL, Start date: 11/10/14 14:00:00, Dura tion: 2 hr, Stop date: 11/10/14 15:59:00 Notes: (Same as:Omnipaque 300). Start Date: 11/10/14 Stop Date: 11/10/14 Status: Completed Saline Flush 0.9% 10 mL, Route: IVP, Drug Form: INJ, Dosing Weight 137, kg, PRN, PRN Line Flush, S tart date: 11/10/14 11:26:00, Duration: 30 day, Stop date: 12/10/14 11:25:00 Notes: Same as: BD Posiflush Sterile Start Date: 11/10/14 Stop Date: 11/10/14 Status: Discontinued tramadol 50 mg oral tablet 50 mg=1 tab, PO, BID, X 7 day, # 14 tab, 0 Refill(s) Start Date: 11/10/14 Stop Date: 11/17/14 Status: Ordered Zofran 4 mg, 2 mL, Route: IVP, Drug form: INJ, ONCE, Dosing Weight 137, kg, Priority: S TAT, Start date: 11/10/14 11:49:00, Stop date: 11/10/14 11:49:00 Notes: (Same as: Zofran) MEDICATION WASTE Product Size: 4 mgProduct Was clarissa: ___ mg Start Date: 11/10/14 Stop Date: 11/10/14 Status: Completed Zofran 4 mg oral tablet 4 mg=1 tab, PO, BID, X 5 day, # 10 tab, 0 Refill(s) Start Date: 11/10/14 Stop Date: 11/15/14 Status: Ordered Results ELECTROLYTES Most recent to 1 oldest [Reference Range]: Sodium Lvl [135-145 140 mEq/L mEq/L] (11/10/14 11:41 AM) Potassium Lvl 4.5 mEq/L [3.5-5.1 mEq/L] (11/10/14 11:41 AM) Chloride Lvl [95-109 104 mEq/L mEq/L] (11/10/14 11:41 AM) CO2 [24-32 mEq/L] 24 mEq/L (11/10/14 11:41 AM) AGAP [10.0-20.0 16.5 mEq/L mEq/L] (11/10/14 1141 AM) CHEM PANEL Most recent to 1 oldest [Reference Range]: Creatinine Lvl 7.1 mg/dL [0.5-1.4 mg/dL] *HI* (11/10/14 11:41 AM) eGFR 7 mL/min/1.73m2 1 *NA* (11/10/14: AM) BUN [7-22 mg/dL] 43 mg/dL *HI* (11/10/14 11: AM) B/C Ratio [6-25] 6 (11/10/14:41 AM) Glucose Lvl [70-99 141 mg/dL 2 mg/dL] *HI* (11/10/14 11:41 AM) Total Protein 7.5 g/dL [6.4-8.4 g/dL] (11/10/14 11:41 AM) Albumin Lvl [3.5-5.0 2.9 g/dL g/dL] *LOW* (11/10/14 11:41 AM) Globulin [2.0-4.0 4.6 g/dL g/dL] *HI* (11/10/14 11:41 AM) A/G Ratio [0.7-1.6] 0.6 *LOW* (11/10/14 11:41 AM) Calcium Lvl 8.4 mg/dL [8.5-10.5 mg/dL] *LOW* (11/10/14 11:41 AM) ALT [0-65 unit/L] 30 unit/L (11/10/14 11:41 AM) AST [0-37 unit/L] 16 unit/L (11/10/14 11:41 AM) Alk Phos [39-136 98 unit/L unit/L] (11/10/14 11:41 AM) Bili Total [0.2-1.3 0.4 mg/dL mg/dL] (11/10/14 11:41 AM) Lipase Lvl [73-393 211 unit/L unit/L] (11/10/14 11:41 AM) 1Result Comment: The eGFR is calculated using [...] values reflect the clinical guidelines of the [place] [employer]. CARDIAC ENZYMES Most recent to 1 oldest [Reference Range]: Total CK [12-191 154 unit/L unit/L] (11/10/14 11:41 AM) CK MB [0.5-3.6 2.3 ng/mL ng/mL] (11/10/14 11:41 AM) CK MB Index 1.5 [0.0-2.5] (11/10/14 11:41 AM) Troponin-I 0.03 ng/mL [0.00-0.40 ng/mL] (11/10/14 11:41 AM) HEMATOLOGY Most recent to 1 oldest [Reference Range]: WBC [3.7-10.4 K/CMM] 6.9 K/CMM (11/10/14 11:41 AM) RBC [4.20-5.40 3.27 M/CMM M/CMM] *LOW* (11/10/14 11:41 AM) Hgb [12.0-16.0 g/dL] 10.2 g/dL *LOW* (11/10/14 11:41 AM) Hct [36.0-48.0 %] 31.5 % *LOW* (11/10/14 11:41 AM) MCV [80.0-98.0 fL] 96.6 fL (11/10/14 11:41 AM) MCH [27.0-31.0 pg] 31.2 pg *HI* (11/10/14 11:41 AM) MCHC [32.0-36.0 32.3 g/dL g/dL] (11/10/14 11:41 AM) RDW [11.5-14.5 %] 15.4 % *HI* (11/10/14:41 AM) Platelet [133-450 211 K/CMM K/CMM] (11/10/14 11:41 AM) MPV [7.4-10.4 fL] 8.0 fL (11/10/14 11:41 AM) Segs [45.0-75.0 %] 69.6 % (11/10/14 11:41 AM) Lymphocytes 14.4 % [20.0-40.0 %] *LOW* (11/10/14 11:41 AM) Monocytes [2.0-12.0 11.0 % %] (11/10/14 11:41 AM) Eosinophils [0.0-4.0 4.5 % %] *HI* (11/10/14 11:41 AM) Basophils [0.0-1.0 0.5 % %] (11/10/14 11:41 AM) Segs-Bands # 4.8 K/CMM [1.5-8.1 K/CMM] (11/10/14 11:41 AM) Lymphocytes # 1.0 K/CMM [1.0-5.5 K/CMM] (11/10/14 11:41 AM) Monocytes # [0.0-0.8 0.8 K/CMM K/CMM] (11/10/14 11:41 AM) Eosinophils # 0.3 K/CMM [0.0-0.5 K/CMM] (11/10/14 11:41 AM) Basophils # [0.0-0.2 0.0 K/CMM K/CMM] (11/10/14 11:41 AM) PT [12.0-14.7 15.8 seconds seconds] *HI* (11/10/14 11:41 AM) INR [0.85-1.17] 1.25 3 *HI* (11/10/14 11:41 AM) PTT [22.9-35.8 31.3 seconds 4 seconds] (11/10/14 11:41 AM) 3Interpretive Data: RECOMMENDED RANGES FOR PROTIME INR: 2.0-3.0 for most medical and surgical thromboembolic states. 2.5-3.5 for artificial heart valves and recurrent embolism. INR SHOULD BE USED ONLY FOR PATIENTS ON STABLE ANTICOAGULANT THERAPY. 4Interpretive Data: Heparin Therapeutic Range: 57 - 92 Seconds Immunizations Vaccine Date Refusal Reason pneumococcal 23-valent [...]
--- OUTSIDE RECORDS SUMMARY | 2018-03-16 21:36 | XMS REPORT | Summary of Care ---
Author Author [facility] Organization [facility] Address Unknown Phone Unavailable Encounter ELIA Villela(DULCE) [id number] Date(s): 12/25/14 - 12/26/14 [facility] [address] [place] [address]- Discharge Diagnosis: Lymphedema Discharge Disposition: Home Attending Physician: Crow Aranda DO Vital Signs 1 2 3 Most recent to oldest [Reference Range]: 160.02 cm (12/25/14 8:17 PM) Height 1 2 3 Most recent to oldest [Reference Range]: 98 DegF (12/25/14 11:30 PM) 98.4 DegF (12/25/14 8:17 PM) Temperature Oral [96.4-99.1 DegF] 1 2 3 Most recent to oldest [Reference Range]: 180/82 mmHg *HI* (12/25/14 11:30 PM) 183/61 mmHg *HI* (12/25/14 9:34 PM) 183/61 mmHg *HI* (12/25/14 9:25 PM) Blood Pressure [90-140/60-90 mmHg] 1 2 3 Most recent to oldest [Reference Range]: 20 BRMIN (12/25/14 11:30 PM) 18 BRMIN (12/25/14 9:25 PM) 18 BRMIN (12/25/14 8:17 PM) Respiratory Rate [14-20 BRMIN] 1 2 3 Most recent to oldest [Reference Range]: 92 bpm (12/25/14 11:30 PM) 96 bpm (12/25/14 9:25 PM) 97 bpm (12/25/14 8:17 PM) Peripheral Pulse Rate [60-100 bpm] 1 2 3 Most recent to oldest [Reference Range]: 126 kg (12/25/14 8:17 PM) Weight 1 2 3 Most recent to oldest [Reference Range]: 49.21 m2 (12/25/14 8:17 PM) Body Mass Index Problem List Condition [...] - Active Hypertension(Confirm ed) Hyperglycemia(Confir Active med) Pivhtztyamokbl93 10/23/13 Active Morbid Active obesity(Confirmed) Peripheral edema11 07/18/13 Active Peripheral venous 10/23/13 Active vmjtjezjhuoyz98 Retinal tnohahsb89 08/07/13 Active Type II diabetes 07/18/13 Active mellitus bucqiutwmicq11 1Data migrated from [employer] on 10/13/14. [...] on 09/11/14. Originally documented as LISINOPRIL. Medications No data available for this section Results ELECTROLYTES Most recent to 1 oldest [Reference Range]: Sodium Lvl [135-145 141 mEq/L mEq/L] (12/25/14 10:00 PM) Potassium Lvl 3.8 mEq/L [3.5-5.1 mEq/L] (12/25/14 10:00 PM) Chloride Lvl [95-109 104 mEq/L mEq/L] (12/25/14 10:00 PM) CO2 [24-32 mEq/L] 27 mEq/L (12/25/14 10:00 PM) AGAP [10.0-20.0 13.8 mEq/L mEq/L] (12/25/14 10:00 PM) CHEM PANEL Most recent to 1 oldest [Reference Range]: Creatinine Lvl 4.0 mg/dL [0.5-1.4 mg/dL] *HI* (12/25/14 10:00 PM) eGFR 13 mL/min/1.73m2 1 *NA* (12/25/14 10:00 PM) BUN [7-22 mg/dL] 18 mg/dL (12/25/14 10:00 PM) Glucose Lvl [70-99 266 mg/dL mg/dL] *HI* (12/25/14 10:00 PM) Calcium Lvl 8.4 mg/dL [8.5-10.5 mg/dL] *LOW* (12/25/14 10:00 PM) 1Result Comment: The eGFR is calculated [...] tiplied by the estimated BMI. CARDIAC ENZYMES Most recent to 1 oldest [Reference Range]: Total CK [12-191 50 unit/L unit/L] (12/25/14 10:00 PM) CK MB [0.5-3.6 1.8 ng/mL ng/mL] (12/25/14 10:00 PM) CK MB Index 3.6 [0.0-2.5] *HI* (12/25/14 10:00 PM) Troponin-I <0.02 ng/mL [0.00-0.40 ng/mL] (12/25/14 10:00 PM) HEMATOLOGY Most recent to 1 oldest [Reference Range]: WBC [3.7-10.4 K/CMM] 8.4 K/CMM (12/25/14 9:20 PM) RBC [4.20-5.40 3.34 M/CMM M/CMM] *LOW* (12/25/14 9:20 PM) Hgb [12.0-16.0 g/dL] 10.7 g/dL *LOW* (12/25/14 9:20 PM) Hct [36.0-48.0 %] 32.7 % *LOW* (12/25/14 9:20 PM) MCV [80.0-98.0 fL] 97.8 fL (12/25/14 9:20 PM) MCH [27.0-31.0 pg] 31.9 pg *HI* (12/25/14 9:20 PM) MCHC [32.0-36.0 32.6 g/dL g/dL] (12/25/14 9:20 PM) RDW [11.5-14.5 %] 18.0 % *HI* (12/25/14 9:20 PM) Platelet [133-450 286 K/CMM K/CMM] (12/25/14 9:20 PM) MPV [7.4-10.4 fL] 7.9 fL (12/25/14 9:20 PM) Segs [45.0-75.0 %] 83.0 % *HI* (12/25/14 9:20 PM) Lymphocytes 8.0 % [20.0-40.0 %] *LOW* (12/25/14:20 PM) Monocytes [2.0-12.0 1.6 % %] *LOW* (12/25/14:20 PM) Eosinophils [0.0-4.0 7.4 % %] *HI* (8/14/15 9:20 PM) Basophils [0.0-1.0 0.0 % %] (12/25/14 9:20 PM) Segs-Bands # 7.0 K/CMM [1.5-8.1 K/CMM] (12/25/14 9:20 PM) Lymphocytes # 0.7 K/CMM [1.0-5.5 K/CMM] *LOW* (12/25/14 9:20 PM) Monocytes # [0.0-0.8 0.1 K/CMM K/CMM] (12/25/14 9:20 PM) Eosinophils # 0.6 K/CMM [0.0-0.5 K/CMM] *HI* (12/25/14 9:20 PM) Basophils # [0.0-0.2 0.0 K/CMM K/CMM] (12/25/14 9:20 PM) Immunizations Vaccine Date Refusal Reason pneumococcal [...]
--- OUTSIDE RECORDS SUMMARY | 2018-03-16 21:36 | XMS REPORT | Summary of Care ---
Author Organization Unknown Address Unknown Phone Unavailable Encounter ELIA Villela(DULCE) [id number] Date(s): 11/19/14 - 11/20/14 [id number] [place] [address]- Discharge Diagnosis: Rash Discharge Disposition: Home Physician Attending: Malachi Armstrong MD Vital Signs 1 2 3 Most recent to oldest [Reference Range]: 160.02 cm (11/19/14 10:21 PM) Height 98.4 DegF (11/19/14 11:37 PM) 98.3 DegF (11/19/14 10:30 PM) 98.2 DegF (11/19/14 10:21 PM) Temperature Oral [96.4-99.1 DegF] 178/80 mmHg *HI* (11/19/14 10:21 PM) Blood Pressure [90-140/60-90 mmHg] 167 mmHg *HI* (11/19/14 11:37 PM) 165 mmHg *HI* (11/19/14 10:30 PM) Systolic Blood Pressure [90-140 mmHg] 78 mmHg (11/19/14 11:37 PM) 76 mmHg (11/19/14 10:30 PM) Diastolic Blood Pressure [60-90 mmHg] 16 BRMIN (11/19/14 11:37 PM) 16 BRMIN (11/19/14 10:30 PM) 18 BRMIN (11/19/14 10:21 PM) Respiratory Rate [14-20 BRMIN] 88 bpm (11/19/14 11:37 PM) 92 bpm (11/19/14 10:30 PM) 96 bpm (11/19/14 10:21 PM) Peripheral Pulse Rate [60-100 bpm] 90.909 kg (11/19/14 10:21 PM) Weight 35.5 m2 (11/19/14 10:21 PM) Body Mass Index Problem List Condition [...] - Active Hypertension(Confirm ed) Hyperglycemia(Confir Active med) Ynvcojbqojffgy67 10/23/13 Active Morbid Active obesity(Confirmed) Peripheral edema11 07/18/13 Active Peripheral venous 10/23/13 Active mzdxiniwdmzmu81 Retinal tyqamlvs63 08/07/13 Active Type II diabetes 07/18/13 Active mellitus cgnnushebkad06 1Data migrated from [employer] on 10/13/14. [...] on 09/11/14. Originally documented as LISINOPRIL. Medications hydrOXYzine 25 mg, 0.5 mL, Route: IM, Drug form: INJ, ONCE, Dosing Weight 90.909, kg, Priori ty: STAT, Start date: 11/19/14 22:56:00, Stop date: 11/19/14 22:56:00 Notes: (Same as: Vistaril) Start Date: 11/19/14 Stop Date: 11/19/14 Status: Completed predniSONE 60 mg, 3 tab, Route: PO, Drug form: TAB, ONCE, Dosing Weight 90.909, kg, Priorit y: STAT, Start date: 11/19/14 22:55:00, Stop date: 11/19/14 22:55:00 Notes: Take with food. Start Date: 11/19/14 Stop Date: 11/19/14 Status: Completed Results No data available for [...]
--- OUTSIDE RECORDS SUMMARY | 2018-03-16 21:36 | XMS REPORT | Summary of Care ---
Author Author [facility] Outpatient Imaging [facility] Address Unknown Phone Unavailable Encounter ELIA Villela(DULCE) [id number] Date(s): 10/04/17 - 10/04/17 [facility] Outpatient Imaging [facility] [address] [place], [place] [address]- [phone] Discharge Disposition: Home or Self Care Attending Physician: Mena De La Torre MD Vital Signs No data available for this section Problem List Condition Effective Dates Status Health Status Informant Abnormal gait1 07/18/13 Active Alkaline phosphatase 10/30/13 Active raised2 Benign hypertension3 Active Blind(Confirmed) Active Body mass index 40+ Active - severely obese4 Cellulitis(Confirmed Resolved ) Chronic diastolic Active heart failure5 Constipation6 07/18/13 Active Dependence on renal Active dialysis M-W-F(Confirmed) Dialysis Active care(Confirmed) Disorder of vision7 11/03/13 Active DM - Diabetes Active mellitus(Confirmed) Electrocardiogram Active abnormal8 End stage renal 07/18/13 Active disease9 ESRD - End stage Active renal disease(Confirmed) HTN - Active Hypertension(Confirm ed) Hyperglycemia(Confir Active med) Yajtfyituqxjyj03 10/23/13 Active Morbid Active obesity(Confirmed) Weakness of both Active lower limbs(Confirmed) Peripheral edema11 07/18/13 Active Peripheral venous 10/23/13 Active wrkzxxpwgewlv93 Retinal obxcscwt19 08/07/13 Active Type II diabetes 07/18/13 Active mellitus hkojxkpufnrv18 1Data migrated from [employer] on 10/13/14. [...] Adverse Reactions, Alerts Substance Reaction Severity Status iodinated radiocontrast ITCH Active dyes lisinopril1 itch Active NKFA Active traMADol itch Active 1Data migrated from [employer] on 09/11/14. Originally documented as LISINOPRIL. Medications No data available for this section Results No data available for this section Immunizations Given and Recorded Vaccine Date Status Refusal Reason diphtheria/pertussis, acel/tetanus adult 10/27/16 Given tetanus-diphtheria toxoids 01/23/13 Given pneumococcal 23-valent vaccine 11/14/12 Given Procedures Procedure Date Related Diagnosis Body Site Status Miscellaneous operations 10/2016 Completed Arteriovenous fistula operation1 Completed Cholecystectomy Completed Insertion of tunneled dialysis catheter using Completed fluoroscopic guidance 1lt. lower arm Social History Social History Type Response Substance Abuse Use: None. Exercise Exercise type: NONE. Alcohol Never Smoking Status Never smoker; Exposure to Tobacco Smoke None; Cigarette Smoking Last 365 Days No; Reg Smoking Cessation Counseling No entered on: 09/27/17 Assessment and Plan No data available for this section
--- OUTSIDE RECORDS SUMMARY | 2018-03-16 21:36 | XMS REPORT | Summary of Care ---
Author Author [facility] Organization [facility] Address Unknown Phone Unavailable Encounter ELIA Villela(DULCE) [id number] Date(s): 09/27/17 - 09/27/17 [facility] [address] [place] [address]- [phone] Discharge Disposition: Shelter Facility Attending Physician: Crow Franco MD Referring Physician: Crow Franco MD Vital Signs 1 2 3 Most recent to oldest [Reference Range]: 170.18 cm (09/25/17 11:03 AM) Height 98.0 DegF (09/27/17 8:24 AM) Temperature Oral [96.4-99.1 DegF] 147/83 mmHg *HI* (09/27/17 6:30 PM) 160/85 mmHg *HI* (09/27/17 6:00 PM) 150/82 mmHg *HI* (09/27/17 5:30 PM) Blood Pressure [90-140/60-90 mmHg] 22 BRMIN *HI* (09/27/17 6:30 PM) 24 BRMIN *HI* (09/27/17 6:00 PM) 17 BRMIN (09/27/17 5:30 PM) Respiratory Rate [14-20 BRMIN] 136.364 kg (09/25/17 11:03 AM) Weight 47.09 m2 (09/25/17 11:03 AM) Body Mass Index Problem List Condition [...] - Active Hypertension(Confirm ed) Hyperglycemia(Confir Active med) [id number] 10/23/13 Active Morbid Active obesity(Confirmed) Weakness of both Active lower limbs(Confirmed) Peripheral edema11 07/18/13 Active Peripheral venous 10/23/13 Active [id number] Retinal [id number] 08/07/13 Active Type II diabetes 07/18/13 Active mellitus [id number] 1Data migrated from [employer] on 10/13/14. [...] on 09/11/14. Originally documented as LISINOPRIL. Medications acetaminophen 650 mg, 1 supp, Route: OK, Drug form: SUPP, Q4H, Dosing Weight 136.364, kg, PRN Pain Score 1-3, Start date: 09/27/17 14:53:00 CDT, Duration: 30 day, Stop date: 10/27/17 14:52:00 CDT Notes: Max dnordlwzozyba=1522 mg/day (4 gm/day). (Same as: Tylenol) Start Date: 09/27/17 Stop Date: 09/27/17 Status: Discontinued acetaminophen 650 mg, 2 tab, Route: PO, Drug form: TAB, Q4H, Dosing Weight 136.364, kg, PRN Pa in 1-3/Temp > 100.4 F, Start date: 09/27/17 14:53:00 CDT, Duration: 30 day, Stop date: 10/27/17 14:52:00 CDT Notes: Do not exceed 4 gm/day. (Same as: Tylenol) Start Date: 09/27/17 Stop Date: 09/27/17 Status: Discontinued acetaminophen-hydrocodone 325 mg-10 mg oral tablet 1 tab, Route: PO, Drug Form: TAB, Dosing Weight 136.364, kg, Q4H, PRN Pain Score 1-3, Start date: 09/27/17 14:53:00 CDT, Duration: 30 day, Stop date: 10/27/17 1 4:52:00 CDT Notes: Do not exceed 4gm/day of acetaminophen. (Same as: Sanford 325/10) Start Date: 09/27/17 Stop Date: 09/27/17 Status: Discontinued acetaminophen-hydrocodone 325 mg-5 mg oral tablet 1 tab, Route: PO, Drug Form: TAB, Dosing Weight 136.364, kg, Q4H, PRN Pain Score 1-3, Start date: 09/27/17 14:53:00 CDT, Duration: 30 day, Stop date: 10/27/17 1 4:52:00 CDT Notes: (Same as: Sanford 325/5) Do not exceed 4gm/day of acetaminophen. Start Date: 09/27/17 Stop Date: 09/27/17 Status: Discontinued ANES acetaminophen 1,000 mg, 2 tab, Route: PO, Drug form: TAB, ONCE, Dosing Weight 136.364, kg, PRN Pain Score 1-3, Start date: 09/27/17 15:54:00 CDT Notes: Max acetaminophen 4000 mg/day (4 gm/day). (Same as: Tylenol Extra Streng th) Start Date: 09/27/17 Stop Date: 09/27/17 Status: Discontinued ANES flumazenil 0.2 mg, 2 mL, Route: IVP, Drug form: INJ, PRN, Dosing Weight 136.364, kg, PRN Be nzodiazepine Reversal, Initial dose, Start date: 09/27/17 15:54:00 CDT, Stop emili e: 09/27/17 23:00:00 CDT Notes: (Same as: Romazicon) Start Date: 09/27/17 Stop Date: 09/27/17 Status: Completed ANES morphine Sulfate 2 mg, 0.5 mL, Route: IVP, Drug form: SOLN, Q5Min, Dosing Weight 136.364, kg, PRN Pain Score 4-6, Start date: 09/27/17 15:54:00 CDT, Stop date: 09/27/17 23:00:00 CDT Notes: (Same as:MORPhine Sulfate) Start Date: 09/27/17 Stop Date: 09/27/17 Status: Completed ANES naloxone 0.4 mg, 1 mL, Route: IVP, Drug form: INJ, Q2MIN, Dosing Weight 136.364, kg, PRN Narcotic Reversal, Start date: 09/27/17 15:54:00 CDT, Duration: 8 doses or times , Stop date: 09/27/17 23:00:00 CDT Notes: Same as Narcan Start Date: 09/27/17 Stop Date: 09/27/17 Status: Completed ANES ondansetron 4 mg, 2 mL, Route: IVP, Drug form: INJ, ONCE, Dosing Weight 136.364, kg, PRN Chris sea & Vomiting, Start date: 09/27/17 15:54:00 CDT Notes: (Same as: Anders) MEDICATION WASTE Product Size: 4 mgProduct Was clarissa: __0_ mg Start Date: 09/27/17 Stop Date: 09/27/17 Status: Discontinued chlorhexidine topical 0.12% liquid 15 ml, Route: S&SPIT, Q12H, Drug form: LIQ, Start date: 09/27/17 21:00:00 CDT, Duration: 2 week, Stop date: 10/11/17 9:00:00 CDT Notes: (Same As: Peridex) Start Date: 09/27/17 Stop Date: 09/27/17 Status: Discontinued chlorhexidine topical 4% soap 1 pkt, Route: BATHE, Q-M-W-F, Drug form: SOLN, Start date: 09/28/17 9:00:00 CDT, Duration: 30 day, Stop date: 10/26/17 9:00:00 CDT Notes: (Same As: Nico) Start Date: 09/28/17 Stop Date: 09/27/17 Status: Canceled Dextrose 50% Syringe 25 gm, 50 mL, Route: IVP, Drug Form: INJ, Dosing Weight 136.364, kg, PRN, PRN Bl ood Glucose Results, Start date: 09/27/17 14:53:00 CDT, Duration: 30 day, Stop d ate: 10/27/17 14:52:00 CDT Start Date: 09/27/17 Stop Date: 09/27/17 Status: Discontinued Dextrose 50% Syringe 12.5 gm, 25 mL, Route: IVP, Drug Form: INJ, Dosing Weight 136.364, kg, PRN, PRN Blood Glucose Results, Start date: 09/27/17 14:53:00 CDT, Duration: 30 day, Stop date: 10/27/17 14:52:00 CDT Start Date: 09/27/17 Stop Date: 09/27/17 Status: Discontinued docusate 100 mg, Route: PO, BID, Dosing Weight 136.364, kg, PRN Constipation, Start date: 09/27/17 14:53:00 CDT, Duration: 30 day, Stop date: 10/27/17 14:52:00 CDT Start Date: 09/27/17 Stop Date: 09/27/17 Status: Discontinued docusate sodium 100 mg oral capsule 100 mg, 1 cap, Route: PO, Drug form: CAP, BID, Dosing Weight 136.364, kg, PRN Co nstipation, Start date: 09/29/17 8:00:00 CDT, Duration: 30 day, Stop date: 10/29 7:59:00 CDT Notes: (Same as: ace) (Do Not Crush)pharmacy re-entry for dosing time adjustm ent Start Date: 09/29/17 Stop Date: 09/27/17 Status: Canceled fentaNYL 50 microgram, 1 mL, Route: IV, Drug form: INJ, Q5Min, Dosing Weight 136.364, kg, PRN Pain Score 7-10, Start date: 09/27/17 15:54:00 CDT, Duration: 4 doses or ti mes, Stop date: 09/27/17 23:00:00 CDT Notes: (Same as: Sublimaze) Preservative free. Start Date: 09/27/17 Stop Date: 09/27/17 Status: Completed fentaNYL (ANES) Route: IV, Drug form: INJ, ONCE, Stop date: 09/27/17 13:35:00 CDT Start Date: 09/27/17 Stop Date: 09/27/17 Status: Completed glucagon 1 mg, Route: IM, Drug form: PDR/INJ, PRN, Dosing Weight 136.364, kg, PRN Blood G lucose Results, Start date: 09/27/17 14:53:00 CDT, Duration: 30 day, Stop date: 10/27/17 14:52:00 CDT Start Date: 09/27/17 Stop Date: 09/27/17 Status: Discontinued glycopyrrolate (ANES) Route: IV, Drug form: INJ, ONCE, Stop date: 09/27/17 14:53:00 CDT Start Date: 09/27/17 Stop Date: 09/27/17 Status: Completed heparin (ANES) Route: IV, Drug form: INJ, ONCE, Stop date: 09/27/17 14:05:00 CDT Start Date: 09/27/17 Stop Date: 09/27/17 Status: Completed Lactated Ringers Injection IV 1,000 mL 1,000 mL, Rate: 25 ml/hr, Infuse over: 40 hr, Route: IV, Dosing Weight 136.364 k g, Total Volume: 1,000, Start date: 09/27/17 12:02:00 CDT, Duration: 30 day, Sto p date: 10/27/17 12:01:00 CDT, 2.58, m2 Start Date: 09/27/17 Stop Date: 09/27/17 Status: Discontinued lidocaine (ANES) Route: IV, Drug form: INJ, ONCE, Stop date: 09/27/17 13:45:00 CDT Start Date: 09/27/17 Stop Date: 09/27/17 Status: Completed neostigmine (ANES) Route: IV, Drug form: INJ, ONCE, Stop date: 09/27/17 14:53:00 CDT Start Date: 09/27/17 Stop Date: 09/27/17 Status: Completed ondansetron 4 mg, 2 mL, Route: IVP, Drug form: INJ, Q8H, Dosing Weight 136.364, kg, PRN Naus ea & Vomiting, Start date: 09/27/17 14:53:00 CDT, Duration: 30 day, Stop date: 10/27/17 14:52:00 CDT Notes: (Same as: Anders) MEDICATION WASTE Product Size: 4 mgProduct Was clarissa: __0_ mg Start Date: 09/27/17 Stop Date: 09/27/17 Status: Discontinued ondansetron (ANES) Route: IV, Drug form: INJ, ONCE, Stop date: 09/27/17 14:53:00 CDT Start Date: 09/27/17 Stop Date: 09/27/17 Status: Completed phenylephrine (ANES) Route: IV, Drug form: INJ, ONCE, Stop date: 09/27/17 13:45:00 CDT Start Date: 09/27/17 Stop Date: 09/27/17 Status: Completed propofol (ANES) Route: IV, Drug form: INJ, ONCE, Stop date: 09/27/17 13:40:00 CDT Start Date: 09/27/17 Stop Date: 09/27/17 Status: Completed protamine (ANES) Route: IV, Drug form: INJ, ONCE, Stop date: 09/27/17 14:51:00 CDT Start Date: 09/27/17 Stop Date: 09/27/17 Status: Completed rocuronium (ANES) Route: IV, Drug form: INJ, ONCE, Stop date: 09/27/17 14:51:00 CDT Start Date: 09/27/17 Stop Date: 09/27/17 Status: Completed rocuronium (ANES) Route: IV, Drug form: INJ, ONCE, Stop date: 09/27/17 13:40:00 CDT Start Date: 09/27/17 Stop Date: 09/27/17 Status: Completed Saline Flush 0.9% 10 ml, Route: IVP, Drug Form: INJ, Dosing Weight 136.364, kg, Q12H, Start date: 09/27/17 21:00:00 CDT, Duration: 30 day, Stop date: 10/27/17 9:00:00 CDT Notes: (Same as: BD Posiflush) Start Date: 09/27/17 Stop Date: 09/27/17 Status: Discontinued Saline Flush 0.9% 10 ml, Route: IVP, Drug Form: INJ, Dosing Weight 136.364, kg, PRN, PRN Line Flus h, Start date: 09/27/17 14:53:00 CDT, Duration: 30 day, Stop date: 10/27/17 14:5 2:00 CDT Notes: (Same as: BD Posiflush) Start Date: 09/27/17 Stop Date: 09/27/17 Status: Discontinued Sodium Chloride 0.9% IV 250 mL, Route: IVPB, Start date: 09/27/17 16:06:00 CDT, Duration: 30 day, Stop d ate: 10/27/17 16:05:00 CDT, PRN Line Flush Start Date: 09/27/17 Stop Date: 09/27/17 Status: Discontinued Sodium Chloride 0.9% IV (ANES) 1000 mL Route: IV, Total Volume: 1,000, Start date: 09/27/17 12:34:00 CDT, Stop date: 13:34:00 CDT Start Date: 09/27/17 Stop Date: 09/27/17 Status: Completed Sodium Chloride 0.9% IV (ANES) 1000 mL Route: IV, Total Volume: 1,000, Start date: 09/27/17 12:34:00 CDT, Stop date: 13:34:00 CDT Start Date: 09/27/17 Stop Date: 09/27/17 Status: Completed Sodium Chloride 0.9% IV (ANES) 1000 mL Route: IV, Total Volume: 1,000, Start date: 09/27/17 12:34:00 CDT, Stop date: 13:34:00 CDT Start Date: 09/27/17 Stop Date: 09/27/17 Status: Completed Sodium Chloride 0.9% IV (ANES) 1000 mL Route: IV, Total Volume: 1,000, Start date: 09/27/17 12:34:00 CDT, Stop date: 13:34:00 CDT Start Date: 09/27/17 Stop Date: 09/27/17 Status: Completed succinylcholine (ANES) Route: IV, Drug form: INJ, ONCE, Stop date: 09/27/17 13:45:00 CDT Start Date: 09/27/17 Stop Date: 09/27/17 Status: Completed vancomycin (ANES) 2000 mg Route: IV, Drug form: INJ, Start date: 09/27/17 12:36:00 CDT, Stop date: 8 13:36:00 CDT Start Date: 09/27/17 Stop Date: 09/27/17 Status: Completed Results ELECTROLYTES Most recent to 1 2 oldest [Reference Range]: POC Sodium [135-145 138 mEq/L 139 mEq/L mEq/L] (09/27/17 2:59 PM) (09/27/17 8:19 AM) POC Potassium 4.2 mEq/L 3.9 mEq/L [3.5-5.1 mEq/L] (09/27/17 2:59 PM) (09/27/17 8:19 AM) POC Chloride [95-109 99 mEq/L 98 mEq/L mEq/L] (09/27/17 2:59 PM) (09/27/17 8:19 AM) POC Carbon Dioxide 29 mEq/dL 29 mEq/dL [24-32 mEq/dL] (09/27/17 2:59 PM) (09/27/17 8:19 AM) POC AGAP [10.0-20.0 15.0 mEq/L 17.0 mEq/L mEq/L] (09/27/17 2:59 PM) (09/27/17 8:19 AM) CHEM PANEL Most recent to 1 2 oldest [Reference Range]: eGFR 4 mL/min/1.73m2 1 4 mL/min/1.73m2 2 *NA* *NA* (09/27/17 2:59 PM) (09/27/17 8:19 AM) POC Creatinine 10.5 mg/dL 9.8 mg/dL [0.5-1.4 mg/dL] *HI* *HI* (09/27/17 2:59 PM) (09/27/17 8:19 AM) POC BUN [7-22 mg/dL] 34 mg/dL 32 mg/dL *HI* *HI* (09/27/17 2:59 PM) (09/27/17 8:19 AM) POC Glucose [70-99 173 mg/dL 152 mg/dL mg/dL] *HI* *HI* (09/27/17 2:59 PM) (09/27/17 8:19 AM) POC Ion Ca 1.25 mMol/L 1.30 mMol/L [1.05-1.25 mMol/L] (09/27/17 2:59 PM) *HI* (09/27/17 8:19 AM) 1Result Comment: The eGFR is calculated [...] be mul tiplied by the estimated BMI. HEMATOLOGY Most recent to 1 2 oldest [Reference Range]: POC Hemoglobin 8.8 g/dL 9.9 g/dL [12.0-16.0 g/dL] *LOW* *LOW* (09/27/17 2:59 PM) (09/27/17 8:19 AM) POC Hematocrit 26.0 % 29.0 % [36.0-48.0 %] *LOW* *LOW* (09/27/17 2:59 PM) (09/27/17 8:19 AM) Immunizations Given and Recorded Vaccine Date Status [...]
--- OUTSIDE RECORDS SUMMARY | 2018-03-16 21:37 | XMS REPORT | Summary of Care ---
Author Author [facility] Organization [facility] Address Unknown Phone Unavailable Encounter ELIA Villela(DULCE) [id number] Date(s): 07/30/17 - 08/04/17 [facility] [address] [place] [address]- [phone] Encounter Diagnosis Hemorrhage due to vascular prosthetic devices, implants and grafts, initial enco unter (Final) - 08/08/17 End stage renal disease (Final) - Acute respiratory failure with hypoxia (Final) - Hypertensive heart and chronic kidney disease with heart failure and with stage 5 chronic kidney disease, or end stage renal disease (Final) - Type 2 diabetes mellitus with diabetic chronic kidney disease (Final) - Type 2 diabetes mellitus with hyperglycemia (Final) - Acute posthemorrhagic anemia (Final) - Body mass index (BMI) 50-59.9 , adult (Final) - Chronic diastolic (congestive) heart failure (Final) - Chronic pulmonary edema (Final) - Morbid (severe) obesity due to excess calories (Final) - longterm (current) use of insulin (Final) - Hyperkalemia (Final) - Fluid overload, unspecified (Final) - Anemia in chronic kidney disease (Final) - Allergic rhinitis, unspecified (Final) - Discharge Disposition: [facility] Care Facility Attending Physician: Clayton Wright MD Admitting Physician: Clayton Wright MD Referring Physician: Triny Rodriguez MD Vital Signs 1 2 3 Most recent to oldest [Reference Range]: 162.56 cm (07/31/17 9:05 AM) 162.56 cm (07/31/17 8:02 AM) 162.56 cm (07/31/17 5:48 AM) Height 122 kg (08/04/17 5:00 AM) 120.1 kg (08/03/17 4:15 PM) 121.6 kg (08/03/17 11:56 AM) Current Weight 97.9 DegF (08/02/17 12:24 PM) 98.1 DegF (07/30/17 4:30 AM) Temperature Oral [96.4-99.1 DegF] 97/62 mmHg (08/04/17 4:00 PM) 95/63 mmHg (08/04/17 12:00 PM) 114/70 mmHg (08/04/17 8:00 AM) Blood Pressure [90-140/60-90 mmHg] 18 BRMIN (08/04/17 4:00 PM) 18 BRMIN (08/04/17 12:00 PM) 16 BRMIN (08/04/17 8:00 AM) Respiratory Rate [14-20 BRMIN] 72 bpm (08/04/17 4:00 PM) 79 bpm (08/04/17 12:00 PM) 76 bpm (08/04/17 8:00 AM) Peripheral Pulse Rate [60-100 bpm] 123.188 kg (08/03/17 5:00 AM) 122.733 kg (08/02/17 5:00 AM) 135 kg (07/30/17 12:27 PM) Weight 51.09 m2 (07/30/17 12:27 PM) Body Mass Index Problem List Condition [...] - Active Hypertension(Confirm ed) Hyperglycemia(Confir Active med) [id number] 10/23/13 Active Morbid Active obesity(Confirmed) Weakness of both Active lower limbs(Confirmed) Peripheral edema11 07/18/13 Active Peripheral venous 10/23/13 Active [id number] Retinal [id number] 08/07/13 Active Type II diabetes 07/18/13 Active mellitus [id number] 1Data migrated from [employer] on 10/13/14. 2Data migrated from [employer] [...] on 09/11/14. Originally documented as LISINOPRIL. Medications albumin human 25% intravenous solution 12.5 gm, 50 mL, Route: IVPB, Drug form: INJ, Q1H, Dosing Weight 135, kg, Priorit y: STAT, Start date: 07/30/17 14:51:00 CDT, Duration: 4 doses or times, Stop emili e: 07/30/17 17:51:00 CDT Notes: LOT#: Mfg: WASTE: F/P - Red; E -Red (Same a s: Albuminar)"blood product derivative" Start Date: 07/30/17 Stop Date: 07/30/17 Status: Completed Amidate (ANES) Route: IV, Drug form: INJ, ONCE, Stop date: 07/30/17 7:18:00 CDT Start Date: 07/30/17 Stop Date: 07/30/17 Status: Completed ascorbic acid 500 mg oral tablet 500 mg=1 tab, PO, Daily, 0 Refill(s) Start Date: 08/02/17 Status: Ordered Benadryl 50 mg, 2 cap, Route: PO, Drug form: CAP, ONCE, Dosing Weight 135, kg, Start date : 07/31/17 22:03:00 CDT, Stop date: 07/31/17 22:03:00 CDT Notes: (Same as: Benadryl) Start Date: 07/31/17 Stop Date: 07/31/17 Status: Completed calcium chloride (ANES) Route: IV, Drug form: INJ, ONCE, Stop date: 07/30/17 7:43:00 CDT Start Date: 07/30/17 Stop Date: 07/30/17 Status: Completed ceFAZolin (ANES) Route: IV, Drug form: INJ, ONCE, Stop date: 07/30/17 7:28:00 CDT Start Date: 07/30/17 Stop Date: 07/30/17 Status: Completed ceFAZolin (SCIP) + sterile water 10 mL 1 gm, Route: IVPB, Q8H, Dosing Weight 138.636, kg, Start date: 07/30/17 16:00:00 CDT, Duration: 1 doses or times, Stop date: 07/30/17 16:00:00 CDT, ABX Indicati on: Surgical Prophylaxis Notes: (Same As: Anuel Faulkner) MEDICATION WASTE Product Size: 1000 mgP roduct Wasted: ___ mg Start Date: 07/30/17 Stop Date: 07/30/17 Status: Completed chlorhexidine topical 0.12% liquid 15 mL, Route: S&SPIT, Q6H, Drug form: LIQ, Start date: 07/30/17 18:00:00 CDT, Duration: 30 day, Stop date: 08/29/17 12:00:00 CDT Notes: (Same As: Peridex) Start Date: 07/30/17 Stop Date: 08/01/17 Status: Discontinued chlorhexidine topical 0.12% liquid 15 mL, Route: Swab Mouth, Q12H, Drug form: LIQ, Start date: 07/30/17 9:00:00 CDT , Duration: 30 day, Stop date: 08/28/17 21:00:00 CDT Notes: (Same As: Peridex) Start Date: 07/30/17 Stop Date: 07/30/17 Status: Discontinued chlorhexidine topical 0.12% liquid 15 mL, Route: Swab Mouth, PRN, Drug form: LIQ, PRN Other -See Comment, Start emili e: 07/30/17 8:39:00 CDT, Duration: 30 day, Stop date: 08/29/17 8:38:00 CDT Notes: (Same As: Peridex) Start Date: 07/30/17 Stop Date: 07/31/17 Status: Discontinued cloNIDine 0.1 mg oral tablet 0.1 mg, 1 tab, Route: PO, Drug form: TAB, BID, Dosing Weight 123.188, kg, Start date: 08/03/17 17:00:00 CDT, Duration: 30 day, Stop date: 09/02/17 9:00:00 CDT Notes: (Same As: Catapres) Start Date: 08/03/17 Stop Date: 08/04/17 Status: Discontinued cloNIDine 0.2 mg oral tablet 0.2 mg=1 tab, PO, BID, non dialysis days, hold for SBP<110 and HR <60, # 60 tab, 0 Refill(s) Start Date: 08/02/17 Status: Ordered cloNIDine 0.2 mg oral tablet 0.2 mg=1 tab, PO, Daily, on dialysis days. Hold for SBP<110 and HR <60, 0 Refill(s) Start Date: 08/02/17 Status: Ordered Dextrose 50% in Water IV 50 mL, Route: IVP, Start date: 07/30/17 11:39:00 CDT, Duration: 30 day, Stop emili e: 08/29/17 11:38:00 CDT, PRN Blood Glucose Results Start Date: 07/30/17 Stop Date: 08/04/17 Status: Discontinued Dextrose 50% in Water IV (ANES) Route: IV, Stop date: 07/30/17 7:28:00 CDT Start Date: 07/30/17 Stop Date: 07/30/17 Status: Completed docusate sodium 100 mg oral capsule 100 mg, 1 cap, Route: PO, Drug form: CAP, BID, Dosing Weight 123.188, kg, Start date: 08/03/17 17:00:00 CDT, Duration: 30 day, Stop date: 09/02/17 9:00:00 CDT Notes: (Same as: Colace) (Do Not Crush) Start Date: 08/03/17 Stop Date: 08/04/17 Status: Discontinued docusate sodium 100 mg oral capsule 100 mg=1 cap, PO, BID, # 60 cap, 0 Refill(s) Start Date: 08/02/17 Status: Ordered DuoNeb inhalation solution 3 ml, Route: NEB, Drug Form: SOLN, Dosing Weight 135, kg, PRN, PRN Respiratory P rotocol, Start date: 07/31/17 9:01:00 CDT, Duration: 30 day, Stop date: 08/30/17 9:00:00 CDT Notes: (Same as: Duoneb) Start Date: 07/31/17 Stop Date: 08/04/17 Status: Discontinued ePHEDrine (ANES) Route: IV, Drug form: INJ, ONCE, Stop date: 07/30/17 8:03:00 CDT Start Date: 07/30/17 Stop Date: 07/30/17 Status: Completed EPINEPHrine 5 mg + Dextrose 5% in Water IV 250 mL 250 mL, Rate: titrate, Route: IV, Dosing Weight 135 kg, Total Volume: 255, Start date: 07/30/17 15:30:00 CDT, Duration: 30 day, Stop date: 08/29/17 15:29:00 CDT, 2.52, m2 Start Date: 07/30/17 Stop Date: 07/31/17 Status: Discontinued famotidine 20 mg, 2 mL, Route: IV, Drug form: INJ, Daily, Dosing Weight 138.636, kg, Start date: 07/30/17 9:00:00 CDT, Duration: 30 day, Stop date: 08/28/17 9:00:00 CDT Notes: (Same as: Pepcid)Can be dilute in 5-10cc NS IVP: Slow IV push over at le ast 2 minutes. Start Date: 07/30/17 Stop Date: 07/31/17 Status: Discontinued famotidine 20 mg oral tablet 20 mg=1 tab, PO, Bedtime, 0 Refill(s) Start Date: 08/02/17 Status: Ordered famotidine 20 mg oral tablet 20 mg, 1 tab, Route: PO, Drug form: TAB, Bedtime, Dosing Weight 123.188, kg, Sta rt date: 08/03/17 21:00:00 CDT, Duration: 30 day, Stop date: 09/01/17 21:00:00 C DT Notes: (Same as: Pepcid) Start Date: 08/03/17 Stop Date: 08/04/17 Status: Discontinued fentaNYL 25 microgram, Route: IV, ONCE, Dosing Weight 122.733, kg, Start date: 08/02/17 1 0:54:00 CDT, Stop date: 08/02/17 10:54:00 CDT Start Date: 08/02/17 Stop Date: 08/02/17 Status: Completed fentaNYL 25 microgram, Route: IV, ONCE, Dosing Weight 122.733, kg, Start date: 08/02/17 1 1:00:00 CDT, Stop date: 08/02/17 11:00:00 CDT Start Date: 08/02/17 Stop Date: 08/02/17 Status: Completed fentaNYL (ANES) Route: IV, Drug form: INJ, ONCE, Stop date: 07/30/17 8:03:00 CDT Start Date: 07/30/17 Stop Date: 07/30/17 Status: Completed fentaNYL (ANES) Route: IV, Drug form: INJ, ONCE, Stop date: 07/30/17 7:23:00 CDT Start Date: 07/30/17 Stop Date: 07/30/17 Status: Completed fentaNYL - one time ICU bolus dose 100 microgram, 2 mL, Route: IVP, Drug form: INJ, ONCE, Dosing Weight 138.636, kg , Start date: 07/30/17 11:12:00 CDT, Stop date: 07/30/17 11:12:00 CDT Notes: (Same as: Sublimaze) Preservative free. Start Date: 07/30/17 Stop Date: 07/30/17 Status: Completed fentaNYL 1250 microgram in NS 250 mL (Titrate.) IV 1,250 microgram 1,250 microgram, 250 mL, Rate: Titrate, Start Dose: 50 microgram/hr, Titration: 25 microgram/hour every 15 minutes, Goal(s): RASS 0 to -1, Max Dose: 300 microgr am/hr, Route: IV, Dosing Weight 138.636 kg, Total Volume: 250, Start date: 07/30 11:12:0... Notes: Concentration: 5 microgram / ml Start Date: 07/30/17 Stop Date: 07/31/17 Status: Discontinued Flonase 0.05 mg/inh nasal spray 2 spray, NASAL, Daily, in each nostril, # 16 gm, 0 Refill(s), Pharmacy: [facility] Start Date: 08/04/17 Status: Ordered gabapentin 100 mg oral capsule 100 mg=1 cap, PO, BID, # 90 cap, 1 Refill(s) Start Date: 08/02/17 Status: Ordered gabapentin 100 mg oral capsule 100 mg, 1 cap, Route: PO, Drug form: CAP, BID, Dosing Weight 123.188, kg, Start date: 08/03/17 17:00:00 CDT, Duration: 30 day, Stop date: 09/02/17 9:00:00 CDT Notes: (Same as: Neurontin) Start Date: 08/03/17 Stop Date: 08/04/17 Status: Discontinued glucagon 1 mg, Route: INJ, Drug form: PDR/INJ, PRN, PRN Blood Glucose Results, Start date : 07/30/17 11:40:00 CDT, Duration: 30 day, Stop date: 08/29/17 11:39:00 CDT Start Date: 07/30/17 Stop Date: 08/04/17 Status: Discontinued Humalog 10 unit, 0.1 mL, Route: SUB-Q, Drug form: SOLN, Sliding Scale, PRN Blood Glucose Results, Start date: 07/30/17 11:39:00 CDT, Duration: 30 day, Stop date: 11:38:00 CDT Notes: (Same as: Humalog ) Roll in palms of hands gently; Do not shake `vigorou sly. "Single Patient Use Only " WASTE: F/P - Black; E - [facility] [address] able for 28 days at room temperature.Expires in days from Da te Start Date: 07/30/17 Stop Date: 08/04/17 Status: Discontinued Humalog 5 unit, 0.05 mL, Route: SUB-Q, Drug form: SOLN, Sliding Scale, PRN Blood Glucose Results, Start date: 07/30/17 11:37:00 CDT, Duration: 30 day, Stop date: 11:36:00 CDT Notes: (Same as: Humalog ) Roll in palms of hands gently; Do not shake `vigorou sly. "Single Patient Use Only " WASTE: F/P - Black; E - [facility] able for 28 days at room temperature.Expires in days from Da te Start Date: 07/30/17 Stop Date: 08/04/17 Status: Discontinued Humalog 7 unit, 0.07 mL, Route: SUB-Q, Drug form: SOLN, Sliding Scale, PRN Blood Glucose Results, Start date: 07/30/17 11:38:00 CDT, Duration: 30 day, Stop date: 11:37:00 CDT Notes: (Same as: Humalog ) Roll in palms of hands gently; Do not shake `vigorou sly. "Single Patient Use Only " WASTE: F/P - Black; E - [facility] able for 28 days at room temperature.Expires in days from Da te Start Date: 07/30/17 Stop Date: 08/04/17 Status: Discontinued Humalog 6 unit, 0.06 mL, Route: SUB-Q, Drug form: SOLN, Sliding Scale, PRN Blood Glucose Results, Start date: 07/30/17 11:38:00 CDT, Duration: 30 day, Stop date: 11:37:00 CDT Notes: (Same as: Humalog ) Roll in palms of hands gently; Do not shake `vigorou sly. "Single Patient Use Only " WASTE: F/P - Black; E - [facility] able for 28 days at room temperature.Expires in days from Da te Start Date: 07/30/17 Stop Date: 08/04/17 Status: Discontinued insulin glargine 10 unit, 0.1 mL, Route: SUB-Q, Drug form: SOLN, Bedtime, Start date: 07/31/17 21 :00:00 CDT, Duration: 30 day, Stop date: 08/29/17 21:00:00 CDT Notes: (Same as: Lantus)Do not hold insulin without contacting prescriberWASTE: F/P - Black; E - [facility] "single patient use only" Start Date: 07/31/17 Stop Date: 08/02/17 Status: Discontinued insulin glargine 20 unit, 0.2 mL, Route: SUB-Q, Drug form: SOLN, Bedtime, Start date: 08/02/17 21 :00:00 CDT, Duration: 30 day, Stop date: 08/31/17 21:00:00 CDT Notes: (Same as: Lantus)Do not hold insulin without contacting prescriberWASTE: F/P - Black; E - [facility] "single patient use only" Start Date: 08/02/17 Stop Date: 08/04/17 Status: Discontinued Insulin regular (ANES) IV, ONCE Start Date: 07/30/17 Stop Date: 07/30/17 Status: Completed Insulin regular (ANES) IV, ONCE Start Date: 07/30/17 Stop Date: 07/30/17 Status: Completed Januvia 25 mg, 1 tab, Route: PO, Drug form: TAB, Daily, Dosing Weight 123.188, kg, Start date: 08/04/17 9:00:00 CDT, Duration: 30 day, Stop date: 09/02/17 9:00:00 CDT Notes: Same as Januvia Start Date: 08/04/17 Stop Date: 08/04/17 Status: Discontinued Januvia 25 mg oral tablet 25 mg=1 tab, PO, Daily, # 30 tab, 0 Refill(s) Start Date: 08/02/17 Status: Ordered lactulose 20 gm, 30 mL, Route: PO, Drug form: SYRP, Daily, PRN Constipation, Start date: 0 07/30/17 15:26:00 CDT, Duration: 30 day, Stop date: 08/29/17 15:25:00 CDT Notes: (Same as:Chronulac) Start Date: 07/30/17 Stop Date: 08/04/17 Status: Discontinued Lasix 40 mg oral tablet 40 mg=1 tab, PO, Daily, # 30 tab, 0 Refill(s) Start Date: 08/02/17 Status: Ordered Lasix 40 mg oral tablet 40 mg, 1 tab, Route: PO, Drug form: TAB, Daily, Dosing Weight 123.188, kg, Start date: 08/04/17 9:00:00 CDT, Duration: 30 day, Stop date: 09/02/17 9:00:00 CDT Notes: (Same as: Lasix) May cause GI upset. Give with food or milk. Start Date: 08/04/17 Stop Date: 08/04/17 Status: Discontinued Levemir FlexPen 20 unit, Route: SUB-Q, Bedtime, Dosing Weight 122.733, kg, Start date: 08/02/17 21:00:00 CDT, Duration: 30 day, Stop date: 08/31/17 21:00:00 CDT Start Date: 08/02/17 Stop Date: 08/02/17 Status: Deleted Levemir FlexPen 10 unit, Route: SUB-Q, Bedtime, Dosing Weight 135, kg, Start date: 07/31/17 21:0 0:00 CDT, Duration: 30 day, Stop date: 08/29/17 21:00:00 CDT Start Date: 07/31/17 Stop Date: 07/31/17 Status: Discontinued Lovenox 30 mg, 0.3 mL, Route: SUB-Q, Drug form: INJ, Q24H, Start date: 07/31/17 9:00:00 CDT, Duration: 30 day, Stop date: 08/29/17 9:00:00 CDT Notes: (Same as: Lovenox) Start Date: 07/31/17 Stop Date: 07/31/17 Status: Discontinued Lovenox 40 mg, 0.4 mL, Route: SUB-Q, Drug form: INJ, [id number], Dosing Weight 135, kg, St art date: 07/31/17 12:00:00 CDT, Duration: 30 day, Stop date: 08/29/17 12:00:00 CDT Notes: (Same as: Lovenox) Start Date: 07/31/17 Stop Date: 07/31/17 Status: Discontinued Lovenox 30 mg, 0.3 mL, Route: SUB-Q, Drug form: INJ, Q24H, Start date: 08/01/17 13:00:00 CDT, Duration: 30 day, Stop date: 08/30/17 13:00:00 CDT Notes: (Same as: Lovenox) Start Date: 08/01/17 Stop Date: 08/04/17 Status: Discontinued Melatonin 5 mg oral capsule 5 mg=1 cap, PO, Bedtime, 0 Refill(s) Start Date: 08/02/17 Status: Ordered metoprolol tartrate 25 mg, 1 tab, Route: PO, Drug form: TAB, Q12H, Dosing Weight 122.733, kg, Start date: 08/02/17 21:00:00 CDT, Duration: 30 day, Stop date: 09/01/17 9:00:00 CDT Notes: (Same as: Lopressor) Start Date: 08/02/17 Stop Date: 08/04/17 Status: Discontinued MiraLax 17 gm, 1 pkt, Route: PO, Drug form: PWDR, Daily, Start date: 08/04/17 9:00:00 CD T, Duration: 30 day, Stop date: 09/02/17 9:00:00 CDT Notes: Dissolve in 8 oz of water or juice.(Same as: Miralax) Start Date: 08/04/17 Stop Date: 08/04/17 Status: Discontinued MiraLax 8.6 mg, Route: PO, Daily, Dosing Weight 123.188, kg, Start date: 08/04/17 9:00:0 0 CDT, Duration: 30 day, Stop date: 09/02/17 9:00:00 CDT Start Date: 08/04/17 Stop Date: 08/03/17 Status: Discontinued MiraLax 8.6 mg, PO, Daily, 0 Refill(s) Start Date: 08/02/17 Status: Ordered morphine Sulfate 2 mg, 0.5 mL, Route: IVP, Drug form: INJ, ONCE, Dosing Weight 120.455, kg, Prior ity: STAT, Start date: 07/30/17 4:43:00 CDT, Stop date: 07/30/17 4:43:00 CDT Notes: (Same as:MORPhine Sulfate) Start Date: 07/30/17 Stop Date: 07/30/17 Status: Completed niCARdipine 40 mg 40 mg, 200 mL, Route: IV, Drug form: SOLN, Dosing Weight 135, kg, Start date: 15:29:00 CDT, Duration: 30 day, Stop date: 08/29/17 15:28:00 CDT Notes: Same as: CardeneConcentration: (0.2 mg /1 ml ) Start Date: 07/30/17 Stop Date: 08/04/17 Status: Discontinued norepinephrine 8 mg in 250 mL (Titrate.) IV 8 mg 8 mg, 250 mL, Rate: Titrate, Start Dose: 5 microgram/min, Titration: 2 microgram /min every 2-5 minutes, Goal(s): MAP >=65 mmHg, Max Dose: 70 microgram/min, Route: IV, Dosing Weight 138.636 kg, Total Volume: 250, Start date: 07/30/17 9:20:00 CDT, Dura... Notes: Same as: Levophed. Administer by either central venous catheter or periph erally-inserted central catheter (PICC) line.Concentration: 0.032 mg / mL Start Date: 07/30/17 Stop Date: 08/04/17 Status: Discontinued Norvasc 5 mg, 1 tab, Route: PO, Drug form: TAB, Daily, Dosing Weight 135, kg, Start date : 08/01/17 9:00:00 CDT, Duration: 30 day, Stop date: 08/30/17 9:00:00 CDT Notes: (Same as: Norvasc) Start Date: 08/01/17 Stop Date: 08/04/17 Status: Discontinued NovoLIN R 100 units/mL injectable solution 2 - 10 Units, SUB-Q, QID-Before Meals, PRN Blood Sugar Results, Sliding Scale (L ow), # 1 vial, 0 Refill(s) Start Date: 08/02/17 Status: Ordered ondansetron 4 mg, 2 mL, Route: IVP, Drug form: INJ, ONCE, Dosing Weight 120.455, kg, Priorit y: STAT, Start date: 07/30/17 4:43:00 CDT, Stop date: 07/30/17 4:43:00 CDT Notes: (Same as: Zofran) MEDICATION WASTE Product Size: 4 mgProduct Was clarissa: ___ mg Start Date: 07/30/17 Stop Date: 07/30/17 Status: Completed phenylephrine (ANES) Route: IV, Drug form: INJ, ONCE, Stop date: 07/30/17 7:43:00 CDT Start Date: 07/30/17 Stop Date: 07/30/17 Status: Completed propofol (ANES) Route: IV, Drug form: INJ, ONCE, Stop date: 07/30/17 8:05:00 CDT Start Date: 07/30/17 Stop Date: 07/30/17 Status: Completed Renvela 800 mg oral tablet 2,400 mg=3 tab, PO, BID, On sunday,sunday and sunday with meals, # 270 tab, 0 Refill(s) Start Date: 08/02/17 Stop Date: 09/01/17 Status: Ordered Renvela 800 mg oral tablet 2,400 mg=3 tab, PO, TID-Meals, ON SUN,SUN,SAT AND SUN with meals, # 270 tab, 0 Refill(s) Start Date: 08/02/17 Stop Date: 09/01/17 Status: Ordered rocuronium (ANES) Route: IV, Drug form: INJ, ONCE, Stop date: 07/30/17 8:05:00 CDT Start Date: 07/30/17 Stop Date: 07/30/17 Status: Completed rocuronium (ANES) Route: IV, Drug form: INJ, ONCE, Stop date: 07/30/17 7:18:00 CDT Start Date: 07/30/17 Stop Date: 07/30/17 Status: Completed Saline Flush 0.9% 10 mL, Route: IVP, Drug Form: INJ, Dosing Weight 120.455, kg, PRN, PRN Line Flus h, Start date: 07/30/17 4:43:00 CDT, Duration: 30 day, Stop date: 08/29/17 4:42: 00 CDT Notes: (Same as: BD Posiflush) Start Date: 07/30/17 Stop Date: 07/30/17 Status: Discontinued Saline Flush 0.9% 10 ml, Route: IVP, Drug Form: INJ, Dosing Weight 138.636, kg, Q12H, Start date: 07/30/17 9:00:00 CDT, Duration: 30 day, Stop date: 08/28/17 21:00:00 CDT Notes: (Same as: BD Posiflush) Start Date: 07/30/17 Stop Date: 07/31/17 Status: Discontinued Saline Flush 0.9% 10 ml, Route: IVP, Drug Form: INJ, Dosing Weight 138.636, kg, PRN, PRN Line Flus h, Start date: 07/30/17 8:39:00 CDT, Duration: 30 day, Stop date: 08/29/17 8:38: 00 CDT Notes: (Same as: BD Posiflush) Start Date: 07/30/17 Stop Date: 07/31/17 Status: Discontinued Sensipar 30 mg oral tablet 30 mg=1 tab, PO, Daily, 0 Refill(s) Start Date: 08/02/17 Status: Ordered simvastatin 40 mg, 1 tab, Route: PO, Drug form: TAB, Bedtime, Dosing Weight 123.188, kg, Sta rt date: 08/03/17 21:00:00 CDT, Duration: 30 day, Stop date: 09/01/17 21:00:00 C DT Notes: (Same as: Zocor) Start Date: 08/03/17 Stop Date: 08/04/17 Status: Discontinued simvastatin 40 mg oral tablet 40 mg=1 tab, PO, Bedtime, # 90 tab, 1 Refill(s) Start Date: 08/02/17 Status: Ordered Sodium Chloride 0.9% (Bolus) IV 1,000 mL, 1000 ml/hr, Infuse Over: 1 hr, Route: IV, 1,000, Drug form: INJ, ONCE, Priority: STAT, Dosing Weight 120.455 kg, Start date: 07/30/17 4:43:00 CDT, Stop date: 07/30/17 4:43:00 CDT Start Date: 07/30/17 Stop Date: 07/30/17 Status: Completed Sodium Chloride 0.9% (titrate) 250 mL 250 mL, Rate: To prime line and flush remaining blood products., Dosing Weight 1 20.455, kg, Route: IV, Total Volume: 250, Start Date: 07/30/17 4:44:00 CDT, Dura tion: 30 day, Stop date: 08/29/17 4:43:00 CDT, Replace Every: 24 hr Start Date: 07/30/17 Stop Date: 07/30/17 Status: Discontinued Sodium Chloride 0.9% IV (ANES) 500 mL Route: IV, Total Volume: 500, Start date: 07/30/17 6:22:00 CDT, Stop date: 07/30 7:22:00 CDT Start Date: 07/30/17 Stop Date: 07/30/17 Status: Completed Tylenol 650 mg, 2 tab, Route: PO, Drug form: TAB, Q6H, Dosing Weight 123.188, kg, PRN Pa in 1-3/Temp > 100.4 F, Start date: 08/03/17 15:37:00 CDT, Duration: 30 day, Stop date: 09/02/17 15:36:00 CDT Notes: Do not exceed 4 gm/day. (Same as: Tylenol) Start Date: 08/03/17 Stop Date: 08/04/17 Status: Discontinued vancomycin + Dextrose 5% in Water IV 250 mL 750 mg, Route: IVPB, Drug form: PDR/INJ, Q-M-W-F, Start date: 08/01/17 21:00:00 CDT, Duration: 5 day, Stop date: 08/03/17 21:00:00 CDT, ABX Indication: Skin/Sof t Tissue Infection Notes: TIME CRITICAL MEDICATION(Same As: Vancocin)Infusion rate< 1000 mg: infuse over 1 [id number] - 1500 mg: infuse over 1.5 [id number] - 2000 mg: infuse over 2 hours> 2001 mg: infuse over 2.5 hoursFor adult patients only: Round to nearest 250 mg per Medical Staff approval Start Date: 08/01/17 Stop Date: 08/03/17 Status: Completed vancomycin + Sodium Chloride 0.9% IV 100 mL 500 mg, Route: IVPB, I-Ux-Ju-Sa-Bustamante, Dosing Weight 135, kg, PRN Dialysis, Start d ate: 08/01/17 7:01:00 CDT, Duration: 30 doses or times, Stop date: Limited # of times, after TTSatSun prn Dialysis, ABX Indication: Skin/Soft Tissue Infection Notes: TIME CRITICAL MEDICATION(Same As: Vancocin)For adult patients only: Round to nearest 250 mg per Medical Staff approval Start Date: 08/01/17 Stop Date: 08/04/17 Status: Discontinued vancomycin + Sodium Chloride 0.9% IV 500 mL 2,000 mg, Route: IVPB, [id number], Dosing Weight 135, kg, Priority: NOW, Start date : 07/30/17 19:22:00 CDT, Duration: 5 day, Stop date: 08/03/17 19:22:00 CDT, ABX Indication: Skin/Soft Tissue Infection Notes: TIME CRITICAL MEDICATION(Same As: Vancocin)Infusion rate< 1000 mg: infuse over 1 [id number] - 1500 mg: infuse over 1.5 [id number] - 2000 mg: infuse over 2 hours> 2001 mg: infuse over 2.5 hoursFor adult patients only: Round to nearest 250 mg per Medical Staff approval MEDICATION WASTE Product Size: 1000 mgProduct Wasted: ___ mg Start Date: 07/30/17 Stop Date: 07/30/17 Status: Deleted vancomycin + Sodium Chloride 0.9% IV 500 mL 1,750 mg, Route: IVPB, ONCE, Start date: 07/30/17 21:07:00 CDT, Stop date: 07/30 21:07:00 CDT, ABX Indication: Skin/Soft Tissue Infection Notes: TIME CRITICAL MEDICATION(Same As: Vancocin)Infusion rate< 1000 mg: infuse over 1 [id number] - 1500 mg: infuse over 1.5 [id number] - 2000 mg: infuse over 2 hours> 2001 mg: infuse over 2.5 hoursFor adult patients only: Round to nearest 250 mg per Medical Staff approval MEDICATION WASTE Product Size: 1000 mgProduct Wasted: ___ mg Start Date: 07/30/17 Stop Date: 07/30/17 Status: Completed vancomycin 1.5 g/150 mL-NaCl 0.9% intravenous solution 750 mg, IV, [id number], administer after dialysis, # 6 bag, 0 Refill(s) Start Date: 08/03/17 Stop Date: 08/18/17 Status: Completed Vancomycin Pharmacy Dosing Vancomycin Pharmacy Dosing, 1, Drug form: MISC, Route: MISCTEMI, 07/30/17 22 :00:00 CDT, Duration: 5 day, Stop date: 08/04/17 21:59:00 CDT Start Date: 07/30/17 Stop Date: 08/04/17 Status: Discontinued vasopressin (ANES) + sterile water (ANES) 30 mL Route: IV, Drug form: INJ, ONCE, Stop date: 07/30/17 7:53:00 CDT Start Date: 07/30/17 Stop Date: 07/30/17 Status: Completed Versed 0.5 mg, Route: IV, ONCE, Dosing Weight 122.733, kg, Start date: 08/02/17 10:53:0 0 CDT, Stop date: 08/02/17 10:53:00 CDT Start Date: 08/02/17 Stop Date: 08/02/17 Status: Completed Versed 0.5 mg, Route: IV, ONCE, Dosing Weight 122.733, kg, Start date: 08/02/17 11:00:0 0 CDT, Stop date: 08/02/17 11:00:00 CDT Start Date: 08/02/17 Stop Date: 08/02/17 Status: Completed Results BLOOD BANK RESULTS 1 2 3 Most recent to oldest [Reference Range]: B POS *Unknown* (07/30/17 5:29 AM) ABO/Rh Positive 1 (07/30/17 5:29 AM) Antibody Scrn Anti-E *Unknown* (07/30/17 5:29 AM) AB Int E neg *Unknown* (07/30/17 5:29 AM) Antigen JOSEPH Int Product available 2 (07/31/17 7:36 AM) Product available (07/30/17 4:44 AM) RBC product 1Result Comment: 07/30/2017 06:46 VIHOWE "Significant Findings called to PITA GARCIA_ at07/30/2017 06:42 _ by [facility]_. Read B ack OK." 2Result Comment: 07/31/2017 07:40 [id number] Blood available, notified _BEATRICE at 07/31/2017 07:40 by GT. ELECTROLYTES 1 2 3 Most recent to oldest [Reference Range]: 137 mEq/L (08/03/17 5:27 AM) 137 mEq/L (08/01/17 6:09 AM) 139 mEq/L (07/31/17 3:10 AM) Sodium Lvl [135-145 mEq/L] 4.1 mEq/L (08/03/17 5:27 AM) 4.1 mEq/L (08/01/17 6:09 AM) 5.2 mEq/L *HI* (07/31/17 3:10 AM) Potassium Lvl [3.5-5.1 mEq/L] 100 mEq/L (08/03/17 5:27 AM) 101 mEq/L (08/01/17 6:09 AM) 102 mEq/L (07/31/17 3:10 AM) Chloride Lvl [95-109 mEq/L] 25 mEq/L (08/03/17:27 AM) 30 mEq/L (08/01/17 6:09 AM) 23 mEq/L *LOW* (07/31/17 3:10 AM) CO2 [24-32 mEq/L] 16.1 mEq/L (08/03/17:27 AM) 10.1 mEq/L (08/01/17 6:09 AM) 19.2 mEq/L (07/31/17 3:10 AM) AGAP [10.0-20.0 mEq/L] CHEM PANEL 1 2 3 Most recent to oldest [Reference Range]: 6.60 mg/dL *HI* (08/03/17 5:27 AM) 4.90 mg/dL *HI* (08/01/17 6:09 AM) 6.30 mg/dL *HI* (07/31/17 3:10 AM) Creatinine Lvl [0.50-1.40 mg/dL] 7 mL/min/1.73m2 1 *NA* (08/03/17 5:27 AM) 10 mL/min/1.73m2 2 *NA* (08/01/17 6:09 AM) 8 mL/min/1.73m2 3 *NA* (07/31/17 3:10 AM) eGFR 20 mg/dL (08/03/17 5:27 AM) 13 mg/dL (08/01/17 6:09 AM) 26 mg/dL *HI* (07/31/17 3:10 AM) BUN [7-22 mg/dL] 3 *LOW* (08/03/17 5:27 AM) 3 *LOW* (08/01/17 6:09 AM) 4 *LOW* (07/31/17 3:10 AM) B/C Ratio [6-25] 177 mg/dL *HI* (08/03/17 5:27 AM) 136 mg/dL *HI* (08/01/17 6:09 AM) 190 mg/dL *HI* (07/31/17 3:10 AM) Glucose Lvl [70-99 mg/dL] 6.8 g/dL (08/03/17 5:27 AM) 6.7 g/dL (08/01/17 6:09 AM) 6.1 g/dL *LOW* (07/31/17 3:10 AM) Total Protein [6.4-8.4 g/dL] 3.2 g/dL *LOW* (08/03/17 5:27 AM) 3.2 g/dL *LOW* (08/01/17 6:09 AM) 3.3 g/dL *LOW* (07/31/17 3:10 AM) Albumin Lvl [3.5-5.0 g/dL] 3.6 g/dL (08/03/17 5:27 AM) 3.5 g/dL (08/01/17 6:09 AM) 2.8 g/dL (07/31/17 3:10 AM) Globulin [2.7-4.2 g/dL] 0.9 (08/03/17 5:27 AM) 0.9 (08/01/17 6:09 AM) 1.2 (07/31/17 3:10 AM) A/G Ratio [0.7-1.6] 9.4 mg/dL (08/03/17 5:27 AM) 8.8 mg/dL (08/01/17 6:09 AM) 8.7 mg/dL (07/31/17 3:10 AM) Calcium Lvl [8.5-10.5 mg/dL] 4.1 mg/dL (08/01/17 6:09 AM) 3.7 mg/dL (07/31/17 3:10 AM) 5.3 mg/dL *HI* (07/30/17 8:52 AM) Phosphorus [2.5-4.5 mg/dL] 2.1 mg/dL (07/31/17 3:10 AM) 2.3 mg/dL (07/30/17 9:06 AM) 2.3 mg/dL (07/30/17 8:52 AM) Magnesium Lvl [1.8-2.4 mg/dL] 8 unit/L (08/03/17 5:27 AM) 6 unit/L (08/01/17 6:09 AM) 9 unit/L (07/31/17 3:10 AM) ALT [0-65 unit/L] 11 unit/L (08/03/17 5:27 AM) 12 unit/L (08/01/17 6:09 AM) 9 unit/L (07/31/17 3:10 AM) AST [0-37 unit/L] 120 unit/L (08/03/17 5:27 AM) 110 unit/L (08/01/17 6:09 AM) 99 unit/L (07/31/17 3:10 AM) Alk Phos [39-136 unit/L] 0.5 mg/dL (08/03/17 5:27 AM) 0.5 mg/dL (08/01/17 6:09 AM) 0.4 mg/dL (07/31/17 3:10 AM) Bili Total [0.2-1.3 mg/dL] <0.1 mg/dL (07/30/17 9:06 AM) Bili Direct [0.0-0.3 mg/dL] 1Result Comment: The eGFR is calculated using [...] 3 Most recent to oldest [Reference Range]: 94 unit/L (07/30/17 5:29 AM) Total CK [12-191 unit/L] 1.5 ng/mL (07/30/17 5:29 AM) CK MB [0.5-3.6 ng/mL] 1.6 (07/30/17 5:29 AM) CK MB Index [0.0-2.5] <0.02 ng/mL (07/30/17 5:29 AM) Troponin-I [0.00-0.40 ng/mL] 54 pg/mL (07/30/17 5:29 AM) BNP [<=100 pg/mL] SPECIAL CHEMISTRY 1 2 3 Most recent to oldest [Reference Range]: 8.2 % *HI* (07/30/17 9:06 AM) Hgb A1C [<=5.6 %] PARATHYROID PROFILE 1 2 3 Most recent to oldest [Reference Range]: 1.15 mMol/L (07/30/17 9:06 AM) Ca Ion WB [1.05-1.25 mMol/L] 1.10 mMol/L (07/30/17 9:06 AM) Ca Norm WB [1.05-1.25 mMol/L] TOXICOLOGY 1 2 3 Most recent to oldest [Reference Range]: 20.0 ug/ml *NA* (08/03/17 5:27 AM) 16.3 ug/ml *NA* (08/01/17 6:09 AM) Vanco Lvl IMMUNOLOGY 1 2 3 Most recent to oldest [Reference Range]: Negative *NA* (07/30/17 2:29 PM) Hep Bs Ag [Negative] Negative *NA* (07/30/17 2:29 PM) Hep C Ab HEMATOLOGY 1 2 3 Most recent to oldest [Reference Range]: 6.9 K/CMM (08/03/17 5:27 AM) 6.6 K/CMM (08/01/17 6:09 AM) 6.9 K/CMM (07/31/17 3:10 AM) WBC [3.7-10.4 K/CMM] 2.83 M/CMM *LOW* (08/03/17 5:27 AM) 2.74 M/CMM *LOW* (08/01/17 6:09 AM) 2.31 M/CMM *LOW* (07/31/17 3:10 AM) RBC [4.20-5.40 M/CMM] 9.1 g/dL *LOW* (08/03/17 5:27 AM) 8.7 g/dL *LOW* (08/01/17 6:09 AM) 7.5 g/dL *LOW* (07/31/17 3:10 AM) Hgb [12.0-16.0 g/dL] 27.5 % *LOW* (08/03/17 5:27 AM) 26.6 % *LOW* (08/01/17 6:09 AM) 21.9 % *LOW* (07/31/17 3:10 AM) Hct [36.0-48.0 %] 97.1 fL (08/03/17 5:27 AM) 96.9 fL (08/01/17 6:09 AM) 94.5 fL (07/31/17 3:10 AM) MCV [80.0-98.0 fL] 32.2 pg *HI* (08/03/17 5:27 AM) 31.6 pg *HI* (08/01/17 6:09 AM) 32.4 pg *HI* (07/31/17 3:10 AM) MCH [27.0-31.0 pg] 33.2 g/dL (08/03/17 5:27 AM) 32.6 g/dL (08/01/17 6:09 AM) 34.3 g/dL (07/31/17 3:10 AM) MCHC [32.0-36.0 g/dL] 17.1 % *HI* (08/03/17:27 AM) 17.5 % *HI* (08/01/17 6:09 AM) 18.0 % *HI* (07/31/17 3:10 AM) RDW [11.5-14.5 %] 8.4 fL (08/03/17:27 AM) 8.3 fL (08/01/17 6:09 AM) 8.6 fL (07/31/17 3:10 AM) MPV [7.4-10.4 fL] 173 K/CMM (08/03/17 5:27 AM) 158 K/CMM (08/01/17 6:09 AM) 136 K/CMM (07/31/17 3:10 AM) Platelet [133-450 K/CMM] 75.2 % *HI* (08/03/17 5:27 AM) 73.1 % (08/01/17 6:09 AM) 76.9 % *HI* (07/31/17 3:10 AM) Segs [45.0-75.0 %] 14.4 % *LOW* (08/03/17 5:27 AM) 15.1 % *LOW* (08/01/17 6:09 AM) 13.8 % *LOW* (07/31/17 3:10 AM) Lymphocytes [20.0-40.0 %] 7.3 % (08/03/17 5:27 AM) 9.0 % (08/01/17 6:09 AM) 7.9 % (07/31/17 3:10 AM) Monocytes [2.0-12.0 %] 2.5 % (08/03/17 5:27 AM) 2.3 % (08/01/17 6:09 AM) 0.9 % (07/31/17 3:10 AM) Eosinophils [0.0-4.0 %] 0.6 % (08/03/17 5:27 AM) 0.5 % (08/01/17 6:09 AM) 0.5 % (07/31/17 3:10 AM) Basophils [0.0-1.0 %] 5.2 K/CMM (08/03/17 5:27 AM) 4.8 K/CMM (08/01/17 6:09 AM) 5.3 K/CMM (07/31/17 3:10 AM) Segs-Bands # [1.5-8.1 K/CMM] 1.0 K/CMM (08/03/17 5:27 AM) 1.0 K/CMM (08/01/17 6:09 AM) 1.0 K/CMM (07/31/17 3:10 AM) Lymphocytes # [1.0-5.5 K/CMM] 0.5 K/CMM (08/03/17 5:27 AM) 0.6 K/CMM (08/01/17 6:09 AM) 0.5 K/CMM (07/31/17 3:10 AM) Monocytes # [0.0-0.8 K/CMM] 0.2 K/CMM (08/03/17 5:27 AM) 0.2 K/CMM (08/01/17 6:09 AM) 0.1 K/CMM (07/31/17 3:10 AM) Eosinophils # [0.0-0.5 K/CMM] 0.0 K/CMM (07/30/17 8:52 AM) 0.0 K/CMM (07/30/17 5:29 AM) Basophils # [0.0-0.2 K/CMM] Normal (07/30/17 8:52 AM) RBC Morph Normal (07/30/17 8:52 AM) Plt Morph 17.2 seconds *HI* (07/30/17 9:06 AM) 15.2 seconds *HI* (07/30/17 5:29 AM) PT [12.0-14.7 seconds] 1.40 *HI* (07/30/17 9:06 AM) 1.19 *HI* (07/30/17 5:29 AM) INR [0.85-1.17] 60.4 seconds *HI* (07/30/17 9:06 AM) 30.5 seconds (07/30/17 5:29 AM) PTT [22.9-35.8 seconds] BACTERIAL - SEROLOGY 1 2 3 Most recent to oldest [Reference Range]: Negative (07/30/17 8:52 AM) MRSA by PCR Microbiology Reports TEST: Culture: Aspirate/Body Fluid/Tissue STATUS: Auth (Verified) BODY SITE: SOURCE: Clothing Consultant COLLECTED DATE/TIME: 07/30/17 7:46 AM FINAL REPORT No Growth Immunizations Given and Recorded Vaccine Date Status [...] No entered on: 09/27/17 Assessment and Plan Extracted from: Title: .[facility] Critical Care Note Author: Shree Robison MD Date: 07/30/17 Impression and Plan Attending Physician note: Shree Laguerre MD, have seen and examined this patient on _07/30/2017_. My note addresses my assessment of the patient's clinical condition, my treatment plan and medical decision making and my presence, activity and involvement with this patient throughout the day. Critical Care Attending Note: - __ - Will continue IV fluids, Antibiotics and monitor labs as ordered - Patient arrived from the OR intubated and mechnically ventilated. Somewhat agitated and hypertensive and was placed on Fentanyl gtt. Had frothy secretions via ETT so was placed on elevated PEEP until HD performed. Will wean the ventilatory support as tolerated and attempt extubation post-dialysis. Will get lower extremity duplex studies as they are swollen to rule out DVT. Pain management with fentanyl gtt. LUE surgical site C/D/I. Patient critically ill and requires ICU care. A total of 34 accumulated minutes of critical care time was spent by me today in work directly related to this individual patient's care. This includes only time spent at the immediate bedside or elsewhere on the patient's floor or unit.
--- OUTSIDE RECORDS SUMMARY | 2018-03-16 21:37 | XMS REPORT ---
Author Author [facility] Address Unknown Phone Unavailable Care Team Providers Care Ex Chef Name Role Phone Josesito HO Unavailable Unavailable Problems This patient has no known problems. Allergies, Adverse Reactions, Alerts This patient has no known allergies or adverse reactions. Medications This patient has no known medications. Results Test Description Test Time Test Comments Text Results Atomic Results Result Comments FOOT RIGHT COMPLETE 2018-03-16 21:23:00 [place] [id number] Patient Name: THELMA MOYA MR #: [id number] : 1955 Age/Sex: 62/F Req #: [id number] Adm Physician: Ordered by: OSMANY HO MD Report #: [id number] Location: ER Room/Bed: Procedure: [id number] DX/FOOT RIGHT COMPLETE Exam Date: Exam Time: REPORT STATUS: Signed EXAM: FOOT RIGHT COMPLETE, AP, lateral and oblique INDICATION: Stage III ulcer right foot COMPARISON: None FINDINGS: BONES: No acute fractures. No focal erosions. Diffuse bone demineralization. JOINTS: No malalignment. SOFT TISSUES: Severe soft tissue swelling of the foot, predominantly dorsal. Marked vascular calcifications. IMPRESSION: No radiographic evidence of osteomyelitis. Signed by: Dr. Romeo Woods M.D. on 03/16/2018 9:24 PM Dictated By: ROMEO WOODS MD 23 Transcribed By: ELMER on 03/16/182123 COPY TO: OSMANY HO MD CT ABDOMEN/PELVIS WO 2018-03-16 21:09:00 [place] [id number] Patient Name: THELMA MOYA MR #: [id number] : 1955 Age/Sex: 62/F Req #: [id number] Adm Physician: Ordered by: OSMANY HO MD Report #: [id number] Location: ER Room/Bed: Procedure: [id number] CT/CT ABDOMEN/PELVIS WO Exam Date: Exam Time: REPORT STATUS: Signed EXAM: CT ABDOMEN AND PELVIS without IV CONTRAST INDICATION: Abdom inal pain, nausea and vomiting, stage III ulcer on right foot COMPARISON: None TECHNIQUE: The abdomen and pelvis were scanned using a multidetector helical scanner. Coronal and sagittal reformations were obtained. Dose modulation, iterative reconstruction, and/or weight based adjustment of the mA/kV was utilized to reduce the radiation dose to as low as reasonably achievable. Routine protocol performed. IV Contrast: None Oral Contrast: Gastrografin CTDIvol has been reviewed. It is below the limits set by the Radiation Protocol Committee (RPC). FINDINGS: LOWER THORAX: No consolidations. Elevated right hemidiaphragm. LIVER: No masses BILIARY: Cholecystectomy. No ductal dilation. SPLEEN: No masses PANCREAS: No masses ADRENALS: No nodules KIDNEYS: Small kidneys bilaterally consistent with chronic medical renal disease. GI TRACT: No wall thickening or obstruction. Normal appendix. VESSELS: Right femoral hemodialysis catheter terminates at the atriocaval junction. No abdominal aortic aneurysm. PERITONEUM/RETROPERITONEUM: No free air or fluid LYMPH NODES: No lymphadenopathy REPRODUCTIVE ORGANS: Small calcified uterine fibroid. No adnexal masses. BLADDER: Decompressed SOFT TISSUES: No acute findings BONES: No suspicious bone lesions. IMPRESSION: No acute findings to explain patient's abdominal pain Signed by: Dr. Romeo Woods M.D. on 03/16/2018 9:14 PM Dictated By: ROMEO WOODS MD 13 Transcribed By: ELMER on 03/16/182113 COPY TO: OSMANY HO MD CHEST SINGLE (PORTABLE) 2018-03-16 20:47:00 [place] [id number] Patient Name: THELMA MOYA MR #: [id number] : 1955 Age/Sex: 62/F Req #: [id number] Adm Physician: Ordered by: OSMANY HO MD Report #: [id number] Location: ER Room/Bed: Procedure: [id number] DX/CHEST SINGLE (PORTABLE) Exam Date: Exam Time: REPORT STATUS: Signed EXAM: CHEST SINGLE (PORTABLE), AP 1 view INDICATION: Stage III ulcer right foot COMPARISON: None FINDINGS: LINES/TUBES: Right internal jugular vein tunneled hemodialysis catheter tip terminates at the expected location of the right atrium. Left internal jugular vein central line terminates in expected location of the atriocaval junction. LUNGS: No consolidations or edema. PLEURA: No effusions or pneumothorax. Elevation of the right hemidiaphragm. HEART AND MEDIASTINUM: Normal size and contour. BONES AND SOFT TISSUES: No acute findings. IMPRESSION: No acute thoracic abnormality. Signed by: Dr. Romeo Woods M.D. on 03/16/2018 8:48 PM Dictated By: ROMEO WOODS MD 47 Transcribed By: ELMER on 03/16/182047 COPY TO: OSMANY HO MD
[2018-03-16 22:00] VITALS: BP 100/50
[2018-03-17] VITALS (10 sets, daily range): BP systolic 95–132; BP diastolic 48–67
[2018-03-17] MEDS ORDERED: PIPERACILLIN/TAZO 2.25 GM 50 ML IV SCH ×2 (03:00→14:00)
[2018-03-17 06:06] LABS: BASOPHILS % 0.2 % (0.0-1.0); EOSINOPHILS # (AUTO) 0.2 (0.0-0.4); EOSINOPHILS % 2.4 % (0.0-6.0); HEMATOCRIT 29.4 % (34.2-44.1); HEMOGLOBIN 8.6 g/dL (12.0-16.0); LYMPHOCYTES # (AUTO) 1.2 (1.0-3.2); LYMPHOCYTES % 14.6 % (18.0-39.1); MEAN CORPUSCULAR HGB CONC 29.3 g/dL (31-35); MONOCYTES # (AUTO) 0.6 (0.2-0.8); MONOCYTES % 7.7 % (4.4-11.3); NEUTROPHILS # (AUTO) 6.3 (2.1-6.9); NEUTROPHILS % 74.7 % (38.7-80.0); PLATELET COUNT 132 x10e3/uL (140-360); RED BLOOD COUNT 2.97 x10e6/uL (3.6-5.1); RED CELL DISTRIBUTION WIDTH 15.9 % (11.7-14.4)
[2018-03-17 06:29] LABS: ALBUMIN 2.5 g/dL (3.5-5.0); ALBUMIN/GLOBULIN RATIO 0.6 (0.8-2.0); ANION GAP 16.5 mmol/L (8-16); CALCIUM 9.5 mg/dL (8.4-10.2); CREATININE, SERUM 7.71 mg/dL (0.57-1.11); POTASSIUM 4.5 mmol/L (3.5-5.1)
[2018-03-17] MEDS ORDERED: SODIUM CHLORIDE 0.9% 250ML 250 ML ONE (06:38)
[2018-03-17] MEDS: PIPERACILLIN/TAZO 2.25 GM 50 ML IV SCH ×3 (06:43→21:36)
[2018-03-17] MEDS ORDERED: CLONIDINE HCL 0.2 MG TAB PO PRN (12:45)
[2018-03-17] MEDS: LACTOBACILLUS PO SCH ×3 (13:15→21:00)
[2018-03-17] MEDS ORDERED: DEXTROSE 50% SYRINGE 50 ML IV PRN (13:30)
[2018-03-17] MEDS: POLYETHYLENE GLYCOL 3350 17 GM PACK PO SCH (14:21)
[2018-03-17] MEDS: GABAPENTIN 100 MG CAP PO SCH ×2 (14:21→21:36)
[2018-03-17] MEDS: SEVELAMER CARBONATE 800 MG TAB PO SCH (16:59)
[2018-03-17] MEDS: DOCUSATE SODIUM 100 MG CAP PO SCH (16:59)
[2018-03-17] MEDS: BASAGLAR SC SCH (16:59)
[2018-03-17] MEDS: CINACALCET 30 MG TAB PO SCH (16:59)
[2018-03-17] MEDS: METOPROLOL TARTRATE 25 MG TAB PO SCH (16:59)
[2018-03-17] MEDS: INSULIN REGULAR, HUMAN 100 UNIT/1 ML 3ML VIAL SQ SCH ×2 (17:00→21:00)
[2018-03-17] MEDS: VANCOMYCIN 1GM/NS 250 ML 250 ML IV SCH (17:37)
[2018-03-18] VITALS (7 sets, daily range): BP systolic 95–124; BP diastolic 50–59
--- NOTE | 2018-03-18 01:16 | Consultation ---
DATE OF CONSULTATION: REASON FOR CONSULTATION: Right foot osteomyelitis, recommendation antibiotics. HISTORY OF PRESENT ILLNESS: This patient who is legally blind. The patient comes into the emergency room with presentation of her foot as not getting any better. The patient apparently has this ulcer on her foot for some time. She is coming from [facility]. The patient is not a good source of information. History was taken mainly from her chart. She had redness and swelling of her right foot with ulcer, which she has been trying to take care over the last few weeks. The patient does have underlying history of obesity, diabetes mellitus, hypertension and neuropathy. She is legally blind. She had this problem before. The patient was sent from the [facility]. There is no family for me to interview and the patient is not a good source of information, so history was taken mainly from the chart. The patient who is steady on her feet. She has weakness, chronic kidney disease on dialysis, diabetes mellitus type 2, hyperlipidemia, neuropathy, chronic pain syndrome, hypertension, atherosclerotic disease, peripheral vascular disease, history of infection of her foot before. Apparently, she had this problem for weeks as mentioned above with oral antibiotic, but without any improvement. MEDICATION: List noted. She is on dialysis. She is on insulin, clonidine. She is on multivitamin, Renvela, Sensipar tablet. ALLERGIES: LISINOPRIL. PAST SURGICAL HISTORY: Left arm AV graft placement. She has culture from her foot, which showed klebsiella pneumoniae species, multidrug resistant. PHYSICAL EXAMINATION: EXTREMITIES: Right heel; there is erythema. There is edema. There is tenderness. There is ulcer at the base of the right heel about 1 cm with some serosanguineous drainage noted on the dressing. IMPRESSION AND PLAN: The patient has chronic right heel ulcer, deep stage 3, concerned about underlying osteomyelitis. The patient is coming from a [facility] with underlying chronic kidney disease, diabetes mellitus, atherosclerotic disease, peripheral vascular disease, and neuropathy. The patient was started on Zosyn and vancomycin. Agree with that. We will continue, but just for kidney. Obtained an x-ray, showed that there is osteo. We will obtain an MRI, no contrast. I would need surgical debridement. Further recommendations to follow. Job#: [id number] INDIRA
[2018-03-18] MEDS: PIPERACILLIN/TAZO 2.25 GM 50 ML IV SCH ×3 (05:48→21:54)
[2018-03-18] MEDS: GABAPENTIN 100 MG CAP PO SCH ×3 (06:29→21:54)
[2018-03-18] MEDS: INSULIN REGULAR, HUMAN 100 UNIT/1 ML 3ML VIAL SQ SCH ×4 (07:30→21:00)
[2018-03-18] MEDS: TRADJENTA 5MG PO SCH (09:00)
[2018-03-18] MEDS: AMLODIPINE BESYLATE 5 MG TAB PO SCH (09:00)
[2018-03-18] MEDS: METOPROLOL TARTRATE 25 MG TAB PO SCH ×2 (09:00→18:46)
[2018-03-18] MEDS: POLYETHYLENE GLYCOL 3350 17 GM PACK PO SCH (09:00)
[2018-03-18] MEDS: DOCUSATE SODIUM 100 MG CAP PO SCH ×2 (09:00→17:00)
[2018-03-18] MEDS: LACTOBACILLUS PO SCH ×3 (09:00→21:00)
[2018-03-18] MEDS: BASAGLAR SC SCH ×2 (09:00→17:00)
[2018-03-18] MEDS: PANTOPRAZOLE SOD 40 MG TABEC PO SCH (09:32)
[2018-03-18] MEDS: CLOPIDOGREL BISULFATE 75 MG TAB PO SCH (09:32)
[2018-03-18] MEDS: FUROSEMIDE 40 MG TAB PO SCH (09:32)
[2018-03-18] MEDS: CINACALCET 30 MG TAB PO SCH ×2 (09:33→18:46)
[2018-03-18] MEDS: SEVELAMER CARBONATE 800 MG TAB PO SCH ×2 (10:00→17:00)
[2018-03-18] MEDS ORDERED: SODIUM CHLORIDE 0.9% 1000ML 2,000 ML ONE (13:45)
[2018-03-18] MEDS ORDERED: ACETAMINOPHEN/CODEINE 300MG - 30MG TAB PO PRN (14:15)
[2018-03-18] MEDS: ACETAMINOPHEN 325 MG TAB PO PRN ×2 (14:45→23:36)
--- NOTE | 2018-03-18 18:02 | Consultation ---
DATE OF CONSULTATION: RENAL CONSULT HISTORY OF PRESENT ILLNESS: This is a 62-year-old , obese female with end-stage renal disease on hemodialysis Sunday/Sunday/Sunday. The patient lives at a skilled nursing. She comes in with worsening of her right foot wound. PAST MEDICAL HISTORY: Includes 1. ESRD on hemodialysis Sunday/Sunday/Sunday at dialysis. 2. Type 2 diabetes mellitus. 3. Hypertension. 4. Morbid obesity. 5. Debility. 6. Peripheral neuropathy. 7. Peripheral vascular disease. 8. Hyperlipidemia. 9. Legally blind. ALLERGIES: LISINOPRIL AND TRAMADOL. PAST SURGICAL HISTORY: Includes left AV arm graft placement. FAMILY HISTORY: Not available. SOCIAL HISTORY: No smoking, no alcohol, no drugs. A skilled nursing patient. REVIEW OF SYSTEMS: Denies any nausea, vomiting, constipation. Denies any diarrhea. Denies any shortness of breath. Denies any chest pain. Denies any blood in stool, blood in the urine. Denies sensory loss, motor loss. Denies any new skin changes. Denies any new sensory loss changes. Positive obesity. Denies any coughing, wheezing. Basically otherwise negative. PHYSICAL EXAMINATION GENERAL: Alert, following commands. HEENT: Pupils equal, reactive to light and accommodation. NECK: No JVD, no bruit. LUNGS: No rhonchi, no rales. HEART: Regular rate and rhythm. No S3, no S4. ABDOMEN: Nontender, nondistended. No hepatomegaly, no splenomegaly. EXTREMITIES: No clubbing, no cyanosis, no edema. CRANIAL NERVES: Legally blind. NEUROLOGICAL: Debility. Positive decreased sensation. No focalities. VITAL SIGNS: Blood pressure 95/53, afebrile. LABS: White count 8.36, hemoglobin 8.6, hematocrit 29.4. Sodium 129, potassium 4.5, BUN 27, creatinine 7.7, calcium 9.5. AST 27. ASSESSMENT AND PLAN 1. End-stage renal disease on hemodialysis. Patient will be dialyzed today. 2. Anemia of chronic disease. Will give the patient Epogen today, with each dialysis. 3. Right diabetic foot. Currently followed by Infectious Disease. They will be following, seeing new antibiotic changes. The patient will need continued wound care. 4. Type 2 diabetes mellitus. Currently glucose 153. Job#: [id number] EV
[2018-03-18] MEDS: EPOETIN ALFA 10000 UNIT/ML VIAL SC SCH (18:46)
[2018-03-18] MEDS: VANCOMYCIN 1GM/NS 250 ML 250 ML IV SCH (18:46)
[2018-03-19] VITALS: BP 113/55
[2018-03-19 04:00] VITALS: BP 104/46
[2018-03-19] MEDS: PIPERACILLIN/TAZO 2.25 GM 50 ML IV SCH ×3 (05:49→22:00)
[2018-03-19] MEDS: GABAPENTIN 100 MG CAP PO SCH ×3 (05:49→22:14)
[2018-03-19] MEDS ORDERED: ALBUMIN 25% 12.5GM 0.25 GM/ML BTL IV PRN (07:00)
[2018-03-19] MEDS ORDERED: SODIUM CHLORIDE 0.9% 250ML 500 ML IV PRN (07:00)
[2018-03-19] MEDS ORDERED: HEPARIN SOD (PORCINE) 1000 UNIT/ML SDV IV PRN (07:00)
[2018-03-19] MEDS ORDERED: SODIUM CHLORIDE 0.9% 1000ML 2,000 ML IV PRN (07:00)
[2018-03-19] MEDS: INSULIN REGULAR, HUMAN 100 UNIT/1 ML 3ML VIAL SQ SCH ×4 (07:30→21:30)
[2018-03-19 08:00] VITALS: BP 126/64
[2018-03-19] MEDS: SEVELAMER CARBONATE 800 MG TAB PO SCH ×2 (08:30→16:36)
[2018-03-19] MEDS: METOPROLOL TARTRATE 25 MG TAB PO SCH ×2 (08:30→16:36)
[2018-03-19] MEDS: DOCUSATE SODIUM 100 MG CAP PO SCH ×2 (08:30→16:36)
[2018-03-19] MEDS: AMLODIPINE BESYLATE 5 MG TAB PO SCH (08:30)
[2018-03-19] MEDS: PANTOPRAZOLE SOD 40 MG TABEC PO SCH (08:30)
[2018-03-19] MEDS: FUROSEMIDE 40 MG TAB PO SCH (08:30)
[2018-03-19] MEDS: CINACALCET 30 MG TAB PO SCH ×2 (08:30→16:36)
[2018-03-19] MEDS: CLOPIDOGREL BISULFATE 75 MG TAB PO SCH (08:30)
[2018-03-19] MEDS: LACTOBACILLUS PO SCH ×3 (09:00→21:00)
[2018-03-19] MEDS: POLYETHYLENE GLYCOL 3350 17 GM PACK PO SCH (09:00)
[2018-03-19] MEDS: TRADJENTA 5MG PO SCH (09:00)
[2018-03-19] MEDS: BASAGLAR SC SCH ×2 (09:00→16:36)
[2018-03-19 12:00] VITALS: BP 125/64
[2018-03-19] MEDS ORDERED: ONDANSETRON HCL INJ 2 MG/ML VIAL IV PRN ×2 (14:45→20:15)
[2018-03-19 16:00] VITALS: BP 109/64
[2018-03-19] MEDS: VANCOMYCIN 1GM/NS 250 ML 250 ML IV SCH (17:01)
[2018-03-19 20:00] VITALS: BP 130/58
[2018-03-19] MEDS: ACETAMINOPHEN 325 MG TAB PO PRN (21:30)
[2018-03-20] VITALS (9 sets, daily range): BP systolic 109–171; BP diastolic 46–79
[2018-03-20] MEDS: PIPERACILLIN/TAZO 2.25 GM 50 ML IV SCH ×3 (06:00→21:15)
[2018-03-20] MEDS: GABAPENTIN 100 MG CAP PO SCH ×3 (06:00→21:15)
[2018-03-20] MEDS: INSULIN REGULAR, HUMAN 100 UNIT/1 ML 3ML VIAL SQ SCH ×4 (07:30→21:15)
[2018-03-20] MEDS: TRADJENTA 5MG PO SCH (08:31)
[2018-03-20] MEDS: DOCUSATE SODIUM 100 MG CAP PO SCH ×2 (08:31→17:42)
[2018-03-20] MEDS: CLOPIDOGREL BISULFATE 75 MG TAB PO SCH (08:31)
[2018-03-20] MEDS: LACTOBACILLUS PO SCH ×3 (08:31→21:00)
[2018-03-20] MEDS: SEVELAMER CARBONATE 800 MG TAB PO SCH ×2 (08:31→17:42)
[2018-03-20] MEDS: CINACALCET 30 MG TAB PO SCH ×2 (08:32→17:42)
[2018-03-20] MEDS: BASAGLAR SC SCH ×2 (08:32→17:00)
[2018-03-20] MEDS: PANTOPRAZOLE SOD 40 MG TABEC PO SCH (08:36)
[2018-03-20] MEDS: FUROSEMIDE 40 MG TAB PO SCH (08:49)
[2018-03-20] MEDS: POLYETHYLENE GLYCOL 3350 17 GM PACK PO SCH (08:50)
[2018-03-20] MEDS: METOPROLOL TARTRATE 25 MG TAB PO SCH ×2 (08:50→17:42)
[2018-03-20] MEDS: AMLODIPINE BESYLATE 5 MG TAB PO SCH (08:51)
[2018-03-20] MEDS: EPOETIN ALFA 10000 UNIT/ML VIAL SC SCH (17:43)
[2018-03-21] VITALS (8 sets, daily range): BP systolic 107–132; BP diastolic 60–81
[2018-03-21] MEDS: PIPERACILLIN/TAZO 2.25 GM 50 ML IV SCH ×3 (06:04→21:48)
[2018-03-21] MEDS: GABAPENTIN 100 MG CAP PO SCH ×3 (06:04→21:48)
[2018-03-21] MEDS: INSULIN REGULAR, HUMAN 100 UNIT/1 ML 3ML VIAL SQ SCH ×4 (07:30→21:00)
[2018-03-21] MEDS: PANTOPRAZOLE SOD 40 MG TABEC PO SCH (08:45)
[2018-03-21] MEDS: LACTOBACILLUS PO SCH ×3 (08:46→21:00)
[2018-03-21] MEDS: DOCUSATE SODIUM 100 MG CAP PO SCH ×2 (08:46→17:02)
[2018-03-21] MEDS: SEVELAMER CARBONATE 800 MG TAB PO SCH ×2 (08:46→17:03)
[2018-03-21] MEDS: TRADJENTA 5MG PO SCH (08:46)
[2018-03-21] MEDS: POLYETHYLENE GLYCOL 3350 17 GM PACK PO SCH (08:47)
[2018-03-21] MEDS: METOPROLOL TARTRATE 25 MG TAB PO SCH ×2 (08:47→17:03)
[2018-03-21] MEDS: FUROSEMIDE 40 MG TAB PO SCH (08:47)
[2018-03-21] MEDS: BASAGLAR SC SCH ×2 (08:48→17:00)
[2018-03-21] MEDS: CINACALCET 30 MG TAB PO SCH ×2 (08:48→17:03)
[2018-03-21] MEDS: AMLODIPINE BESYLATE 5 MG TAB PO SCH (08:48)
[2018-03-21] MEDS: CLOPIDOGREL BISULFATE 75 MG TAB PO SCH (08:48)
[2018-03-22] VITALS (7 sets, daily range): BP systolic 114–145; BP diastolic 53–68
[2018-03-22] MEDS: PIPERACILLIN/TAZO 2.25 GM 50 ML IV SCH ×3 (05:51→21:00)
[2018-03-22] MEDS: GABAPENTIN 100 MG CAP PO SCH ×2 (05:51→14:00)
[2018-03-22] MEDS: PANTOPRAZOLE SOD 40 MG TABEC PO SCH (07:30)
[2018-03-22] MEDS: INSULIN REGULAR, HUMAN 100 UNIT/1 ML 3ML VIAL SQ SCH ×3 (07:30→18:32)
[2018-03-22] MEDS: SEVELAMER CARBONATE 800 MG TAB PO SCH ×2 (08:00→17:00)
[2018-03-22] MEDS: LACTOBACILLUS PO SCH ×3 (09:00→20:00)
[2018-03-22] MEDS: POLYETHYLENE GLYCOL 3350 17 GM PACK PO SCH (09:00)
[2018-03-22] MEDS: FUROSEMIDE 40 MG TAB PO SCH (09:00)
[2018-03-22] MEDS: AMLODIPINE BESYLATE 5 MG TAB PO SCH (09:00)
[2018-03-22] MEDS: TRADJENTA 5MG PO SCH (09:00)
[2018-03-22] MEDS: CINACALCET 30 MG TAB PO SCH ×2 (09:00→17:00)
[2018-03-22] MEDS: METOPROLOL TARTRATE 25 MG TAB PO SCH ×2 (09:00→17:00)
[2018-03-22] MEDS: BASAGLAR SC SCH ×2 (09:00→17:00)
[2018-03-22] MEDS: CLOPIDOGREL BISULFATE 75 MG TAB PO SCH (09:00)
[2018-03-22] MEDS: DOCUSATE SODIUM 100 MG CAP PO SCH ×2 (09:00→18:33)
[2018-03-22] MEDS ORDERED: SODIUM CHLORIDE 0.9% 250ML 500 ML IV PRN (15:30)
[2018-03-22] MEDS ORDERED: HEPARIN SOD (PORCINE) 1000 UNIT/ML SDV IV PRN (15:30)
[2018-03-22] MEDS ORDERED: SODIUM CHLORIDE 0.9% 1000ML 2,000 ML IV PRN (15:30)
[2018-03-22 20:29] LABS: ANION GAP 17.5 mmol/L (8-16); CREATININE, SERUM 4.75 mg/dL (0.57-1.11); POTASSIUM 3.5 mmol/L (3.5-5.1)
[2018-03-22] MEDS: EPOETIN ALFA 10000 UNIT/ML VIAL SC SCH (20:30)
== END 2018-03-22 23:04 | DRG 638 ==
LOC: ER 17:30 → ERHOLD 20:47 → MED/SURG3 22:28 → OBSVTOIN 03-17 13:28
PROC: 5A1D70Z Performance of Urinary Filtration, Intermittent, Less than 6 Hours Per Day (ICD-10-PCS; principal; 2018-03-18)
PROC: 5A1D70Z Performance of Urinary Filtration, Intermittent, Less than 6 Hours Per Day (ICD-10-PCS; 2018-03-20)
PROC: 5A1D70Z Performance of Urinary Filtration, Intermittent, Less than 6 Hours Per Day (ICD-10-PCS; 2018-03-22)
DX: E11.69 Type 2 diabetes mellitus with other specified complication (principal); I12.0 Hypertensive chronic kidney disease with stage 5 chronic kidney disease or end stage renal disease; Z68.42 Body mass index [BMI] 45.0-49.9, adult; L97.412 Non-pressure chronic ulcer of right heel and midfoot with fat layer exposed; M86.671 Other chronic osteomyelitis, right ankle and foot; E11.22 Type 2 diabetes mellitus with diabetic chronic kidney disease; N18.6 End stage renal disease; Z99.2 Dependence on renal dialysis; Z79.4 Long term (current) use of insulin; E66.01 Morbid (severe) obesity due to excess calories; E11.51 Type 2 diabetes mellitus with diabetic peripheral angiopathy without gangrene; E78.5 Hyperlipidemia, unspecified; H54.8 Legal blindness, as defined in USA; D63.1 Anemia in chronic kidney disease; E11.621 Type 2 diabetes mellitus with foot ulcer; Z74.01 Bed confinement status; Z87.891 Personal history of nicotine dependence
CPT/HCPCS: 36415; 71045; 74176; 80048; 80053; 80202; 82550; 82553; 82948; 83605; 83735; 84484; 85025; 85610; 85730; 86704; 86706; 87040; 87340; 90962; 93005; 99284; G0378; J1644; J2405; J2543; J3370; J7030; J7050; Q4081